=== PATIENT | female | born 2000 | race Caucasian/White ===

== ENCOUNTER 2018-03-17 02:29 | Emergency (ER) | payer BC, SELFPAY ==
[2018-03-17 02:30] VITALS: BP 121/64; PULSE 104; PULSE 98; RESP 18; RESP 24; TEMP 36.7; O2SAT 100; BMI 22.6
[2018-03-17] MEDS: 0.9% Normal Saline 1,000 ML 1000 ML IV (03:24)
[2018-03-17 03:30] LABS: Bacteria 0 SEEN /hpf (None Seen); Mucous, Urine 0 SEEN /hpf (<or=2+); Red Blood Cells-Urine 0 SEEN /hpf (0-5); White Blood Cells 0 SEEN /hpf (0-5)
[2018-03-17 03:37] LABS: Absolute Neutrophil Count 7.5 X10^3/uL (2.0-7.7); Basophil# 0.01 X10^3/uL; Basophil% 0.1 % (0-1); Eosinophil# 0.04 X10^3/uL; Eosinophils% 0.4 % (0-5); Hematocrit 30.9 % (37-47); Hemoglobin 9.5 g/dl (12.0-15.0); Lymphocyte % 11.3 % (19-41); Mean Corp Hgb Conc 30.7 g/gl (32-36); Mean Corpuscular Hgb 22.4 pg (27.0-32.0); Mean Corpuscular Volume 72.9 fL (81-99); Mean Platelet Vol. 10.1 fl (6.2-12.0); Monocyte# 1.02 X10^3/uL; Monocyte% 10.5 % (0-10); Neutrophil # 7.54 X10^3/uL (2.7-7.7); Neutrophil % 77.6 % (47-70); Platelet Count 246 K/mm3 (150-450); RBC Distribution Width CV 15.7 % (11.6-14.6); RBC Distribution Width SD 41.8 fl (35.1-43.9); Red Blood Count 4.24 M/mm3 (4.2-5.4); White Blood Count 9.7 K/mm3 (4.4-11.0)
[2018-03-17 03:39] LABS: Differential Indicated SCAN CRITERIA MET; POSITIVE COUNT NO; POSITIVE DIFFERENTIAL NO; POSITIVE MORPHOLOGY YES
[2018-03-17 03:42] LABS: Color, Urine Yellow (Yellow); Glucose, Dipstick Normal (Normal); Leukocyte Esterase-Dipstick 100 /ul (Negative); Nitrite-Dipstick Negative (Negative); Occult Blood-Urine Negative /ul (Negative); Protein-Dipstick Negative (Negative); Specific Gravity, Urine 1.015 (1.002-1.030); Urine Bilirubin Dipstick Negative (Negative); Urine Clarity Clear (Clear); Urine Urobilinogen Normal (Normal)
[2018-03-17 03:54] LABS: Anion Gap 10 (5-15); BUN 5 mg/dL (7-18); BUN/Creat Ratio 12.3 RATIO (10-20); Calcium,Total 8.6 mg/dL (8.5-10.1); Chloride 108 mmol/L (98-107); Creatinine, Serum 0.41 mg/dL (0.55-1.02); EST Glomerular Filtration Rate 212 mL/min (>60); Est Glom Filt Rate - Afr Amer 257 mL/min (>60); Estimated Creatinine Clearance 157.22 ml/min; Glucose 94 mg/dL (74-106); Potassium 3.1 mmol/L (3.5-5.1); Sodium Level 139 mmol/L (136-145)
[2018-03-17 03:58] LABS: Ketone-Dipstick 150 mg/dl (Negative)
--- NOTE | 2018-03-17 03:59 | NURSING ---
LAB CALLED ABNORMAL RESULT OF 150 URINE KETONES FOR THIS PT, DR. NI NOTIFIED AT 0400
[2018-03-17 04:11] LABS: Squamous Epithelial Cells - UA 5-10 SEEN /hpf (5-10)
[2018-03-17 04:14] LABS: Differential Comment SCANNED; Hypochromasia 2+; Microcytosis 2+
--- NOTE | 2018-03-17 04:18 | ED.VISSUMM ---
- ER Visit Summary Date of Service: 03/17/18 Chief Complaint: Lightheaded History of Present Illness: The patient is a 18 F who [facility]. She reports that she is a at 21 weeks and 6 days . She reports that yesterday morning at 7:30 AM she drank 1 monster. She drank a second throughout the day and finished this at 3:30 PM. She reports following that she began feeling lightheaded. At that point she had been standing for approximately 8 hours while working. States she became nauseated and vomited twice. No blood or emesis. She denies any vaginal bleeding. Normal movement. She has had a subjective fever and chills. Patient denies sore throat, cough, chest pain, trouble breathing, abdominal pain, diarrhea, dysuria, frequency, rash, headache, weakness, paresthesias, or other complaints. Physical Examination: Vitals: Stable. Afebrile. General: Well-nourished and well-developed. Head: Normocephalic atraumatic. Neck: Supple, no lymphadenopathy. No JVD. Nontender. Cardiovascular: Regular rate and rhythm. No murmurs. Respiratory: No respiratory distress. Clear to auscultation bilaterally. Abdominal: Soft, nontender, nondistended, normal bowel sounds. No guarding, rebound, or peritoneal signs. Gravid uterus. Back: Nontender. Extremities: Nontender, no edema. Skin: Normal color, no rash. Neurologic: Alert and oriented ?3. Cranial nerves II through XII are intact. Normal strength and sensation. Psych: Normal affect. Test Results: CBC is marked for an H&H of 9.5 and 30.9, segmented neutrophils of 78, leukocytes of 11, monocytes of 11. Her last hemoglobin was 8.1 in August 2016. Chem-7 is marked potassium 3.1, chloride 108, BUN of 5, creatinine 0.41. Urinalysis is negative. Emergency Department Course and Treatment: Patient was given a liter bolus of normal saline. heart tones were 153. She is resting comfortably. Treatment Plan: Patient will be discharged instructions to abstain from energy drinks. Instructed to eat potassium rich foods. Follow-up with her [employer] commerce consultant in 1-2 days not improving. Return to the emergency department for any worsening symptoms. Disposition: To home in improved and stable condition. Impression: 1. Second trimester . 2. Hypokalemia. This note was generated with [employer] dictation software. It may contain incorrect words, spelling, and punctuation that were not noted in review of the chart prior to signing ED Disposition - Plan for ED Patient: Disposition: Home or Assisted Living Chief Complaint: General Illness Instructions: ED Nausea Vomiting Referrals: Richard Mitchell [Primary Care Provider] - 1-2 Days if not improving
[2018-03-17 04:49] VITALS: BP 110/57; PULSE 87; RESP 15; O2SAT 97
== END 2018-03-17 04:50 | disposition home or self-care (01) ==
PROVIDERS: Emergency Provider Emergency Medicine; Family Provider Pediatrics; PCP Pediatrics
DX: O26.892 Other specified pregnancy related conditions, second trimester (principal); E87.6 Hypokalemia; Z3A.21 21 weeks gestation of pregnancy
CPT/HCPCS: 80048; 81001; 85025; 96360; 99284

== ENCOUNTER 2018-07-24 03:07 | Inpatient (IN) | payer BC, MEDICAID, SELFPAY ==
[2018-07-24 03:53] LABS: Hematocrit 35.7 % (37-47); Hemoglobin 11.8 g/dl (12.0-15.0); Mean Corp Hgb Conc 33.1 g/gl (32-36); Mean Corpuscular Hgb 27.8 pg (27.0-32.0); Mean Corpuscular Volume 84.2 fL (81-99); Mean Platelet Vol. 10.1 fl (6.2-12.0); Platelet Count 188 K/mm3 (150-450); RBC Distribution Width CV 16.5 % (11.6-14.6); RBC Distribution Width SD 50.6 fl (35.1-43.9); Red Blood Count 4.24 M/mm3 (4.2-5.4); White Blood Count 9.6 K/mm3 (4.4-11.0)
[2018-07-24 03:55] LABS: Scan Indicated on CBC? Y/N NO
[2018-07-24 04:05] VITALS: BMI 25.7
[2018-07-24] MEDS: Lactated Ringers 1,000 ML 50 ML IV ×2 (05:31→06:45)
[2018-07-24] MEDS: fentaNYL-bupivacaine (epidural) 100 ML BAG EPIDURAL (06:45)
--- NOTE | 2018-07-24 07:12 | PCM.HP.OB ---
- Problem List (1) SROM (spontaneous rupture of membranes) Status: Acute History Date of Admission: 07/24/18 Final ROBERT: 07/22/18 Final ROBERT Source: US <20 weeks Gestational age: 40 Weeks and 2 Days History of this : This is a 18 year-old, , at 40 weeks gestational age. history significant for influenza in November, anemia, and genital warts. Patient has been taking iron supplement for anemia. TCA was applied to genital warts in third trimester once. She presented with SROM and labor. Allergies No Known Allergies Allergy (Verified 07/24/18 04:07) Home Medications: Home Medications Ferrous Sulfate [Iron] 1 tab PO BID 07/24/18 Prenatabs FA 1 tab PO DAILY 07/24/18 Smoking Status: Never smoker Heart Tracin/mod josephine/+accels/+early decel, Category 1 tracing TOCO Analysis: ctx's q 2 min History Past Pregnancies: Past Pregnancies Delivery Date Name GA/Weeks Outcome Route Weight Gender Labor Length Anesthesia Delivery Location Provider FOB Labs: GBS negative, Rh pos, RI, RPR NR, HIV neg, HepB neg Review of Systems Constitutional: Denies: Fever Gynecological: Reports: - - +SROM around 3am, meconium stained fluid. +Ctx's Physical Exam General: Alert, Oriented x3 HEENT: Atraumatic Cardiovascular: Regular rate Lungs: Normal air movement Abdomen: Gravid Neurological: Neuro grossly intact Presentation: Cephalic Cervix Dilation (cm): 4 Assessment/Plan All Active Problems SROM (spontaneous rupture of membranes) (Acute) This is a 18 year-old, , at 40 weeks gestational age. She presented with SROM and in labor. Has made cervical change to 4cm with ctx's q 2 min without augmentation. Meconium stained fluid present. S/p epidural. GBS negative. Continue to monitor at this time. Will augment labor as needed.
--- NOTE | 2018-07-24 13:25 | PCM.PN.BLA ---
Progress Note pt seen at bedside- /+2, pushing effectively. anticipate
[2018-07-24] MEDS: Oxytocin 30 units/NS 500 ml 30 UNITS/500 ML IV.SOLN 334 UNITS IV (13:50)
--- NOTE | 2018-07-24 14:18 | PCM.OB.VAG ---
Vaginal Delivery Maternal Presentation: Active Labor, Spontaneous Rupture of Membranes Amniotic Membrane Rupture Type: Spontaneous Amniotic Fluid Description: Moderate meconium Final ROBERT: 07/22/18 Gestational age: 40 Weeks and 2 Days Date of Procedure: 07/24/18 Pre-Operative Diagnosis: spontaneous labor Post-Operative Diagnosis: live male infant Surgery/ Procedure Performed: Vacuum Assisted Vaginal Delivery Type of Anesthesia: Epidural Description of Procedure: Vacuum assisted delivery- pt was counseled on use of vacuum- including risks- vacuum applied due to maternal exhaustion and HR decelerations down to 60s - vacuum applied at 500mgHg pressure- total of three pulls with no pop offs- delivered without complication. Loose nuchal x 2 reduced prior to delivery. vacuum removed and infant delivered with gentle downward traction. Delayed cord clamping not performed as was not vigorous at delivery. Presentation: Vertex Placental Delivery Description: Spontaneous Placenta Disposition: [facility] Cord Vessel Description: 3 Vessels Nuchal Cord Compression: With compression Cord Entanglement: Around neck x 2, loose Drain: Jacques to straight drain Estimated Blood Loss: 250 A gender: Male (1 minute): 7 (5 minute): 8 Episiotomy Description: None Laceration: Vaginal Extension/lac - repaired with 3-0 Rapide, 1st degree Medications given after delivery: IV Pitocin Complications: None
[2018-07-24] MEDS: Oxytocin 30 units/NS 500 ml 30 UNITS/500 ML IV.SOLN 167 UNITS IV (14:20)
[2018-07-24] MEDS: Ibuprofen 600 MG Tablet PO (15:24)
[2018-07-24 17:58] VITALS: BP 98/57; PULSE 64; RESP 16; TEMP 37.3; O2SAT 96
[2018-07-24] MEDS: Acetaminophen 500 MG Tablet 1000 MG PO (18:02)
[2018-07-24 20:45] VITALS: BP 119/71; PULSE 81; RESP 18; TEMP 37.1
[2018-07-25 00:17] VITALS: BP 104/52; PULSE 64; RESP 16; TEMP 36.7
[2018-07-25 04:52] VITALS: BP 89/54; PULSE 59; RESP 18; TEMP 36.6
[2018-07-25] MEDS: Ibuprofen 600 MG Tablet PO ×2 (05:00→22:03)
[2018-07-25 08:00] VITALS: BP 90/52; PULSE 61; RESP 16; TEMP 36.6
--- NOTE | 2018-07-25 08:10 | PCM.PN.OB ---
Patient Problems: Active and Suspected Problems (Last Updated 07/24/18 @ 07:27 by Swathi Julian DO) SROM (spontaneous rupture of membranes) (Acute) Subjective: pt seen at bedside doing well. breast feeding. pt reports good pain control. lochia mild. - Physical Exam General: Alert, Oriented x3 Abdomen: Soft, Non-Distended, - - fundus firm Extremities: No Calf Tenderness Vital Signs Temp Pulse Resp BP Pulse Ox 97.8 F 59 L 18 89/54 L 96 07/25/18 04:52 07/25/18 04:52 07/25/18 04:52 07/25/18 04:52 07/24/18 17:58 Oxygen Delivery Method Room Air Weight: 59.783 kg Body Mass Index (BMI) 25.7 Medical Necessity - Tobacco Use Smoking Status: Never smoker Assessment/Plan All Active Problems (Last Updated 07/24/18 @ 07:27 by Swathi Julian DO) SROM (spontaneous rupture of membranes) (Acute) PPD#1, doing well routine care pain mgmt
--- NOTE | 2018-07-25 08:13 | PCM.DCVAG ---
Discharge Diet: No Restrictions Discharge Activity: Return to Normal Activity, May not drive while taking narcotic pain medications., May Shower May resume sexual activity in: 4-6 weeks Additional Activity Instructions:: Nothing in the vagina for 4-6 weeks. You may return to work/school in 6 weeks. Call your doctor if your incision/area has: Continuous Slow Oozing, Sudden Increased Bleeding, Increased Pain/ Swelling, Increased Redness, Foul Smelling Discharge Additional Instructions: If you experience any of the following, contact your healthcare provider. Bleeding that soaks a pad every hour for 2 hours Fever 100.4 or higher Unrelieved incision or abdominal pain Swelling, redness, discharge or bleeding from your incision or episiotomy site Your incision begins to separate Problems urinating (including inability to urinate or burning while urinating). Visual changes Severe headache Flu-like symptoms Pain or redness in one of both of your breasts Pain, warmth, tenderness or swelling in your legs, especially the calf area Frequent nausea and vomiting Symptoms of depression or anxiety If you experience any of the following, call 911 or go to the nearest Emergency Room. Chest pain Problems breathing Seizure activity Partial or complete paralysis of a body part, slurred speech, weakness or drooping of the face, or a sudden inability to walk or hold your balance Allergies/Adverse Reactions: Allergies No Known Allergies Allergy (Verified 07/24/18 04:07) Medications to take at Discharge Prenatabs FA 1 tab PO DAILY 07/24/18 Ibuprofen [Motrin] 800 mg PO Q8H PRN PRN #30 tab 07/25/18 The following prescriptions were given: Ibuprofen [Motrin] 800 mg PO Q8H PRN PRN #30 tab PRN Reason: Pain When: Call to make an appointment with your doctor in 2 weeks and again in 6 weeks. Primary Care Physician: Richard Mitchell [Primary Care Provider] - Test Results: Test results from this visit will be discussed in further detail at your follow-up appointment, if applicable.
[2018-07-25 12:00] VITALS: BP 100/59; PULSE 83; RESP 16; TEMP 36.6
--- NOTE | 2018-07-25 12:44 | CASEMGMT ---
Social Work Note Please read attached assessment. Referral for new mother. Introduced self and role at [facility]. MOB accompanied by her mother, Pauly, and presents with pleasant affect as evidenced by smiling and willingness to participate in assessment. Reports to have all necessary supplies including crib, car seat, clothes, diapers, bottles, and states she does not have a pump. Inform MOB to discuss with the tour consultant for assistance with obtaining prior to discharge. No hx or concern of abuse/neglect. Yusuf HURTADO, is involved. MOB lives with her mother, and identifies her as a primary support. Denies mental health hx. Educated to PPD. Denies substance abuse hx. Pt is established with WIC and J[facility]. Plan: Home at discharge Ruba Coon, CHIEF CRUISER, CASEWORK SPECIALIST
[2018-07-25 20:20] VITALS: BP 106/50; PULSE 67; RESP 16; TEMP 36.7
[2018-07-26 01:05] VITALS: BP 97/61; PULSE 54; RESP 16; TEMP 36.1
[2018-07-26 08:00] VITALS: BP 98/60; PULSE 78; RESP 16; TEMP 36.6
--- NOTE | 2018-07-26 08:43 | PCM.PN.OB ---
Patient Problems: Active and Suspected Problems (Last Updated 07/24/18 @ 07:27 by Swathi Julian DO) SROM (spontaneous rupture of membranes) (Acute) Subjective: Patient doing well. Feels ready to go home. Ambulating and voiding without difficulty. Tristan reg diet. Normal lochia. Denies fevers, chills, CP, SOB, n/v, leg pain. Pain controlled. - Physical Exam General: Alert, Oriented x3 HEENT: Atraumatic Lungs: Normal air movement Abdomen: Soft, Non Tender, - - fundus firm at U Extremities: No Calf Tenderness Skin: No rashes Neurological: Neuro grossly intact Psych/Mental Status: Normal Affect Vital Signs Temp Pulse Resp BP Pulse Ox 97.0 F L 54 L 16 97/61 96 07/26/18 01:05 07/26/18 01:05 07/26/18 01:05 07/26/18 01:05 07/24/18 17:58 Oxygen Delivery Method Room Air Weight: 131 lb 12.8 oz Body Mass Index (BMI) 25.7 Medical Necessity - Tobacco Use Smoking Status: Never smoker Assessment/Plan All Active Problems (Last Updated 07/24/18 @ 07:27 by Swathi Julian DO) SROM (spontaneous rupture of membranes) (Acute) day #2 - Doing well - Ready to go home - Reviewed discharge instructions including return precautions and follow up with pt
[2018-07-26 14:30] VITALS: BP 99/66; PULSE 76; RESP 16; TEMP 36.6
== END 2018-07-26 14:35 | disposition home or self-care (01) | DRG 774 ==
PROVIDERS: Admitting Provider Obstetrics & Gynecology; Family Provider Pediatrics; PCP Pediatrics; Visit Provider Obstetrics & Gynecology
DX: O48.0 Post-term pregnancy (principal); O98.32 Other infections with a predominantly sexual mode of transmission complicating childbirth; O71.4 Obstetric high vaginal laceration alone; Z3A.40 40 weeks gestation of pregnancy; O99.02 Anemia complicating childbirth; A60.00 Herpesviral infection of urogenital system, unspecified; O77.0 Labor and delivery complicated by meconium in amniotic fluid; O76 Abnormality in fetal heart rate and rhythm complicating labor and delivery; O69.81X0 Labor and delivery complicated by cord around neck, without compression, not applicable or unspecified; Z37.0 Single live birth
CPT/HCPCS: 59025; 59050; 85027; 86850; 86900; 99218; J7120; G0378

== ENCOUNTER 2018-08-29 00:06 | Emergency (ER) | payer BC, MEDICAID, SELFPAY ==
[2018-08-29 00:07] VITALS: BP 114/72; PULSE 63; RESP 20; TEMP 37; O2SAT 99; BMI 22.7
--- NOTE | 2018-08-29 00:52 | ED.VISSUMM ---
- ER Visit Summary Date of Service: 08/29/18 Chief Complaint: Left leg pain History of Present Illness: The patient is a 18 F presenting for evaluation secondary to left leg pain. Patient is 5 weeks . Patient states that over the course last 3-4 days she has been developing left leg pain. She reports that this is atraumatic, and is associated with pain in her left anterior thigh and left posterior calf. She denies any chest pain or shortness of breath associated with this. She denies any hemoptysis. She states that she called her primary and they recommended she come to the emergency department for evaluation for possible DVT. She denies any prior history of this. Physical Examination: Physical exam unremarkable except for examination of the lower extremity. Patient has normal range of motion if the hip knee ankle and foot. There are soft compartments throughout. Normal sensation over all dermatomes. 2+ DP and PT pulses. No evidence of reproducible tenderness or palpable cord. Test Results: Bedside two-point ultrasound shows good compressibility, and no evidence of DVT in the femoral or popliteal regions Emergency Department Course and Treatment: Patient presented for evaluation secondary to leg pain . Ultrasound is not available as it is almost 1 AM. I did performed a bedside two-point exam which did not demonstrate any evidence of DVT. I do not believe that empiric anticoagulation is indicated. Patient will be given a prescription for a formal two-point duplex to perform tomorrow. She understands signs and symptoms which to return. I believe that her leg pain likely is secondary to differences in gait secondary to carrying around her . Disposition: Discharge Impression: 1. Left leg pain 2. 5 weeks This note was generated with [employer] dictation software. It may contain incorrect words, spelling, and punctuation that were not noted in review of the chart prior to signing ED Disposition - Plan for ED Patient: Disposition: [facility] Chief Complaint: Lower Extremity Injury Diagnosis: Left leg pain Instructions: ED Muscle Pain Leg Cramps Referrals: Richard Mitchell [Primary Care Provider] - 3-5 Days Additional Instructions: Call tomorrow to schedule your left leg ultrasound
--- NOTE | 2018-08-29 00:56 | ED.DCSUM_ITS ---
- ER Visit Summary Date of Service: 08/29/18 Chief Complaint: Left leg pain History of Present Illness: The patient is a 18 F presenting for evaluation secondary to left leg pain. Patient is 5 weeks . Patient states that over the course last 3-4 days she has been developing left leg pain. She r eports that this is atraumatic, and is associated with pain in her left anterior thigh and left posterior calf. She denies any chest pain or shortness of breath associated with this. She denies any hemoptysis. She states that she called her primary and they recommended she come to the emergency department for evaluation for possible DVT. She denies any prior history of this. Physical Examination: Physical exam unremarkable except for examination of the lower extremity. Patient has normal range of motion if the hip knee ankle and foot. There are soft compartments throughout. Normal sensation over all dermatomes. 2+ DP and PT pulses. No evidence of reproducible tenderness or palpable cord. Test Results: Bedside two-point ultrasound shows good compressibility, and no evidence of DVT in the femoral or popliteal regions Emergency Department Course and Treatment: Patient presented for evaluation s econdary to leg pain . Ultrasound is not available as it is almost 1 AM. I did performed a bedside two-point exam which did not demonstrate any evidence of DVT. I do not believe that empiric anticoagulation is indicated. Patient will be given a prescription for a formal two-point duplex to perform tomorrow. She understands signs and symptoms which to return. I believe that her leg pain likely is secondary to differences in gait secondary to carrying around her . Disposition: Discharge Impression: 1. Left leg pain 2. 5 weeks This note was generated with [employer] dictation software. It may contain incorrect words, spelling, and punctuation that were not noted in review of the chart prior to signing ED Disposition - Plan for ED Patient: Disposition: [facility] Chief Complaint: Lower Extremity Injury Diagnosis: Left leg pain Instructions: ED Muscle Pain Leg Cramps Referrals: Richard Mitchell [Primary Care Provider] - 3-5 Days Additional Instructions: Call tomorrow to schedule your left leg ultrasound
== END 2018-08-29 01:23 | disposition home or self-care (01) ==
LOC: ED 01:20
PROVIDERS: Emergency Provider Emergency Medicine
DX: O90.89 Other complications of the puerperium, not elsewhere classified (principal); M79.652 Pain in left thigh; M79.662 Pain in left lower leg
CPT/HCPCS: 99282

== ENCOUNTER 2018-09-04 22:54 | Emergency (ER) | payer BC, MEDICAID, SELFPAY ==
[2018-09-04 22:56] VITALS: BP 109/80; PULSE 83; RESP 16; TEMP 36.6; O2SAT 99; BMI 20.8
--- NOTE | 2018-09-04 23:05 | EKG12_ITS ---
Test Reason : CP Blood Pressure : / mmHG Vent. Rate : 076 BPM Atrial Rate : 076 BPM P-R Int : 156 ms QRS Dur : 086 ms QT Int : 372 ms P-R-T Axes : 040 075 046 degrees QTc Int : 418 ms Normal sinus rhythm with sinus arrhythmia Normal ECG No previous ECGs available Confirmed by BRYANNA RODAS, RHODA ([id number]), video editor HAWA GOYAL ([id number]) on 09/08/2018 12:47:24 PM Referred By: ESTELITA Confirmed By:RHODA GOULD MD
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
--- NOTE | 2018-09-04 23:07 | NURSING ---
NO OLD EKG
[2018-09-04] MEDS: Naproxen 500 MG Tablet PO (23:13)
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
--- NOTE | 2018-09-04 23:36 | ED.DEP ---
ED Disposition - Plan for ED Patient: Disposition: Home or Assisted Living Chief Complaint: Chest Other Instructions: ED Chest Pain NonCardiac Prescriptions: Naproxen [Naprosyn] 500 mg PO BID #20 tab Referrals: Care Physician,No Primary [Primary Care Provider] -
== END 2018-09-05 00:04 | disposition home or self-care (01) ==
PROVIDERS: Emergency Provider Emergency Medicine
DX: R07.89 Other chest pain (principal); D64.9 Anemia, unspecified; Z79.899 Other long term (current) drug therapy
CPT/HCPCS: 71046; 93005; 99283

== ENCOUNTER 2018-09-06 13:13 | Emergency (ER) | payer BC, MEDICAID, SELFPAY ==
[2018-09-06 13:13] VITALS: BP 137/79; PULSE 96; RESP 22; TEMP 36.2; O2SAT 98; BMI 22.4
--- NOTE | 2018-09-06 13:32 | EKG12_ITS ---
Test Reason : ANXIETY Blood Pressure : / mmHG Vent. Rate : 080 BPM Atrial Rate : 080 BPM P-R Int : 156 ms QRS Dur : 094 ms QT Int : 376 ms P-R-T Axes : 032 078 040 degrees QTc Int : 433 ms Normal sinus rhythm Normal ECG Confirmed by BRYANNA RODAS, RHODA ([id number]), editor book HAWA GOYAL ([id number]) on 09/09/2018 11:07:24 AM Referred By: LARRY Confirmed By:RHODA GOULD MD
[2018-09-06 13:39] VITALS: BP 123/66; PULSE 83; RESP 11; O2SAT 99
--- NOTE | 2018-09-06 13:52 | RAD_ITS ---
STUDY: X-RAY CHEST REASON FOR EXAM: Female, 18 years old. Shortness of breath dyspnea TECHNIQUE: Single AP portable view of the chest. # of Images: 1 COMPARISON: September 04, 2018 chest x-ray FINDINGS: The lungs are clear and expanded. There is no demonstrated pleural abnormality. Normal size heart. Normal mediastinum and henrry. Normal visualized pulmonary arteries. Normal visualized aortic arch and descending thoracic aorta. Normal visualized thoracic spine. Normal visualized ribs, clavicles, and shoulders. There is no demonstrated abnormality of the visualized soft tissue structures of the upper abdomen. RAD/Chest 1 View (Portable) IMPRESSION: Normal x-ray examination of the chest. Electronically Signed: Rachel Ha MD at 14:39 EDT Tel , Service support ,
[2018-09-06] MEDS: Ketorolac 15 MG/ML Vial IV (13:53)
[2018-09-06] MEDS: 0.9% Normal Saline 1,000 ML 75 ML IV (13:53)
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
[2018-09-06 14:10] LABS: Absolute Lymphocyte Count 1.57 X10^3/ul (0.83-4.51); Absolute Neutrophil Count 3.5 X10^3/uL (2.0-7.7); Basophil# 0.03 X10^3/uL; Basophil% 0.5 % (0-1); Eosinophil# 0.39 X10^3/uL; Eosinophils% 6.2 % (0-5); Hematocrit 40.2 % (37-47); Hemoglobin 13.1 g/dl (12.0-15.0); Lymphocyte # 1.57 X10^3/ul (4.0); Mean Corp Hgb Conc 32.6 g/gl (32-36); Mean Corpuscular Hgb 28.3 pg (27.0-32.0); Mean Corpuscular Volume 86.8 fL (81-99); Mean Platelet Vol. 10.1 fl (6.2-12.0); Monocyte# 0.84 X10^3/uL; Monocyte% 13.4 % (0-10); Neutrophil # 3.45 X10^3/uL (2.7-7.7); Neutrophil % 54.7 % (47-70); POSITIVE COUNT NO; POSITIVE DIFFERENTIAL NO; POSITIVE MORPHOLOGY NO; Platelet Count 253 K/mm3 (150-450); RBC Distribution Width CV 13.4 % (11.6-14.6); RBC Distribution Width SD 42.4 fl (35.1-43.9); Red Blood Count 4.63 M/mm3 (4.2-5.4); White Blood Count 6.3 K/mm3 (4.4-11.0)
[2018-09-06 14:20] LABS: D-Dimer Quantitative (DVT/PE) < 0.27 FEU/ug/m (0.27-0.49)
[2018-09-06 14:21] LABS: Anion Gap 7 (5-15); BUN 11 mg/dL (7-18); BUN/Creat Ratio 19.1 RATIO (10-20); Calcium,Total 9.3 mg/dL (8.5-10.1); Chloride 107 mmol/L (98-107); Creatinine, Serum 0.58 mg/dL (0.55-1.02); EST Glomerular Filtration Rate 141 mL/min (>60); Est Glom Filt Rate - Afr Amer 171 mL/min (>60); Estimated Creatinine Clearance 111.14 ml/min; Glucose 97 mg/dL (74-106); Potassium 3.4 mmol/L (3.5-5.1); Sodium Level 140 mmol/L (136-145)
--- NOTE | 2018-09-06 14:53 | ED.DEP ---
ED Disposition - Plan for ED Patient: Disposition: Home or Assisted Living Chief Complaint: Other, Pain/Inj Instructions: ED Chest Pain Atypical Unkn Cause, ED Panic Attack Referrals: Gurjit Salmeron MD [STAFF PHYSICIAN] - As Needed
[2018-09-06 15:13] VITALS: BP 115/70; PULSE 69; RESP 16; O2SAT 99
== END 2018-09-06 15:14 | disposition home or self-care (01) ==
PROVIDERS: Emergency Provider Emergency Medicine
DX: O90.89 Other complications of the puerperium, not elsewhere classified (principal); R07.89 Other chest pain; Z79.899 Other long term (current) drug therapy
CPT/HCPCS: 71045; 80048; 85025; 85379; 93005; 96361; 96374; 99285

== ENCOUNTER → 2018-09-16 15:45 | Outpatient (CLI) | payer BC, MEDICAID, SELFPAY ==
[2018-09-16 18:07] LABS: Potassium 3.6 mmol/L (3.5-5.1); Thyroid Stim Hormone (TSH) 1.21 uIU/mL (0.358-3.74)
== END ==
PROVIDERS: Family Provider Family Medicine; PCP Family Medicine; Visit Provider Family Medicine
DX: E87.6 Hypokalemia (principal); F41.9 Anxiety disorder, unspecified
CPT/HCPCS: 36415; 84132; 84443

== ENCOUNTER 2018-09-29 23:00 | Emergency (ER) | payer BC, MEDICAID, SELFPAY ==
[2018-09-29 23:01] VITALS: BP 112/69; PULSE 75; RESP 18; TEMP 36.6; O2SAT 99; BMI 21.1
--- NOTE | 2018-09-29 23:17 | ED.VISSUMM ---
- ER Visit Summary Date of Service: 09/29/18 Chief Complaint: Rash History of Present Illness: The patient is a 18 F facial rash for 5-7 days. No change in soaps or detergents. No change in facial wash. No new medications. States mildly pruritic. States there is dryness and crusting at the sides of the lips. No fevers. No past med history. Did use some cortisone cream which helps with itching. No other complaints. Physical Examination: General: Alert and oriented ?3, no acute distress HEENT: Normocephalic, atraumatic. Moist mucosa membranes. No oral lesions. Neck: supple, nontender. Cardiovascular: Regular rate and rhythm, no murmurs Respiratory: Normal breath sounds, symmetric, no distress Abdomen: Soft, nontender, nondistended Extremities: Nontender, no edema, pulses intact ?4 Neuro: no focal neurological deficits. Skin: There is papules and patches bilateral maxillary and chin region. There is some crusting at the bilateral edges of the lips. Nontender. No induration. Test Results: [] Emergency Department Course and Treatment: Patient has no clear exposures or concerns for contact dermatitis. Crusting and edge lips concerns for early impetigo. Patient will be started on Keflex for coverage. She will continue cortisone cream to help with symptoms. She will follow-up as an outpatient. All questions answered. Treatment Plan: [] Disposition: Discharge Impression: 1. Impetigo This note was generated with [email or web address] dictation software. It may contain incorrect words, spelling, and punctuation that were not noted in review of the chart prior to signing ED Disposition - Plan for ED Patient: Disposition: Home or Assisted Living Chief Complaint: Rash Diagnosis: Impetigo Instructions: Understanding Impetigo (Adult) Prescriptions: Cephalexin [Keflex] 500 mg PO 4X/DAY #40 capsule Referrals: Arron Brandt MD [Primary Care Provider] - 3-5 Days
[2018-09-29] MEDS: Cephalexin 250 MG Capsule 500 MG PO (23:32)
[2018-09-29 23:33] VITALS: BP 109/62; PULSE 72; RESP 14; O2SAT 98
== END 2018-09-29 23:38 | disposition home or self-care (01) ==
LOC: ED 23:32
PROVIDERS: Emergency Provider Emergency Medicine; Family Provider Family Medicine; PCP Family Medicine
DX: L01.00 Impetigo, unspecified (principal)
CPT/HCPCS: 99283

== ENCOUNTER 2018-10-23 00:17 | Emergency (ER) | payer BC, MEDICAID, SELFPAY ==
[2018-10-23 00:17] VITALS: BP 111/56; PULSE 63; RESP 16; TEMP 36.4; O2SAT 98; BMI 22.2
--- NOTE | 2018-10-23 00:57 | RAD_ITS ---
STUDY: X-RAY CHEST REASON FOR EXAM: Female, 18 years old. Chest pain TECHNIQUE: PA and lateral COMPARISON: September 06, 2018 FINDINGS: The lungs are clear and expanded. There is no demonstrated pleural abnormality. Normal size heart. Normal mediastinum and henrry. Normal visualized pulmonary arteries. Normal visualized aortic arch and descending thoracic aorta. Normal visualized thoracic spine. Normal visualized ribs, clavicles, and shoulders. There is no demonstrated abnormality of the visualized soft tissue structures of the upper abdomen. RAD/Chest PA and Lateral IMPRESSION: Normal x-ray examination of the chest. Electronically Signed: Srinivas Mata MD at 2:12 EST , Service support ,
--- NOTE | 2018-10-23 00:57 | EKG12_ITS ---
Test Reason : Blood Pressure : / mmHG Vent. Rate : 057 BPM Atrial Rate : 057 BPM P-R Int : 170 ms QRS Dur : 090 ms QT Int : 426 ms P-R-T Axes : 038 079 055 degrees QTc Int : 414 ms Sinus bradycardia with sinus arrhythmia RSR' or QR pattern in V1 suggests right ventricular conduction delay Borderline ECG Confirmed by ALEX RODAS, SILVIO ([id number]), editorial project manager ANAHI COWAN ([id number]) on 10/24/2018 2:42:47 PM Referred By: JENNIFFER Confirmed By:SILVIO JOHNSON MD
[2018-10-23] MEDS: Ibuprofen 600 MG Tablet PO (01:14)
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
--- NOTE | 2018-10-23 02:25 | ED.DEP ---
ED Disposition - Plan for ED Patient: Chief Complaint: General Illness Instructions: ED Strain Chest Wall Prescriptions: Ibuprofen [Motrin] 800 mg PO TID PRN PRN #20 tab PRN Reason: Pain Cyclobenzaprine [Flexeril] 10 mg PO TID PRN #20 tab PRN Reason: Muscle Spasm Referrals: Arron Brandt MD [Primary Care Provider] -
[2018-10-23 02:43] VITALS: BP 109/72; PULSE 59; RESP 15; O2SAT 99
== END 2018-10-23 02:44 | disposition home or self-care (01) ==
PROVIDERS: Emergency Provider Emergency Medicine; Family Provider Family Medicine; PCP Family Medicine
DX: R07.89 Other chest pain (principal)
CPT/HCPCS: 71046; 93005; 99283

== ENCOUNTER 2018-10-26 16:34 | Emergency (ER) | payer BC, MEDICAID, SELFPAY ==
[2018-10-26 16:35] VITALS: BP 112/72; PULSE 66; RESP 16; TEMP 36.2; O2SAT 99; BMI 21.4
--- NOTE | 2018-10-26 16:50 | ED.VISSUMM ---
- ER Visit Summary Date of Service: 10/26/18 Chief Complaint: [] Nonspecific abdominal pain for over a month intermittent, nonspecific skin lesions History of Present Illness: The patient is a 18 F [] patient reports she is about 3 months her is uncomplicated she had a 6 weeks check she has had no vaginal bleeding or discharge denies , she indicates she is having intermittent crampy pain that begins in the right middle left middle quadrant radiates to her back intimately for over a month, she is not having the pain now, she is able to eat and drink her bowel bladder habits been normal again no vaginal bleeding or discharge denies no fever no cough, she went to be evaluated for that intermittent discomfort in addition she indicates she was diagnosed impetigo a few weeks ago on her face consisting of small blisters that were crusted, she took the antibiotics for almost a full course but discontinued them when the lesions resolved and she is concerned she is developing impetigo to her arms, she wanted to be checked for that as well she has no skin lesions anywhere on her body just a concern, she said no exposures Physical Examination: [] She is afebrile her blood pressure is 112/72 General, no distress resting comfortably HEENT is generally unremarkable The neck is supple no adenopathy Cardiovascular, regular rate and rhythm Lungs, clear bilateral Abdomen, soft nontender, there is no areas of discomfort to palpation she is currently not having her symptoms Extremities, no clubbing cyanosis or edema Neurologic, awake alert answering questions appropriately moving all 4 extremities Skin is unremarkable there are no lesions anywhere on her skin her face is normal I explained to the etiology of her abdominal pain remains unclear she has had it for about a month, she is intermittent she is able to eat and drink her bowel bladder habits normal I explained we could do an ED evaluation with lab test x-rays urinalysis etc. she declined that with regards to her skin lesions have explained to her I see no signs of impetigo in the office life-threatening or acute this time she wants to be discharged home for outpatient providers who she will see tomorrow return for change in symptoms and agrees to this plan Test Results: [] Emergency Department Course and Treatment: [] Treatment Plan: [] Disposition: [] Home stable Impression: [] Intermittent abdominal pain for a month, concern for skin lesions This note was generated with [employer] software. It may contain incorrect words, spelling, and punctuation that were not noted in review of the chart prior to signing ED Disposition - Plan for ED Patient: Chief Complaint: Abd Pain Referrals: Arron Brandt MD [Primary Care Provider] -
--- NOTE | 2018-10-26 16:53 | ED.DEP ---
ED Disposition - Plan for ED Patient: Chief Complaint: Abd Pain Instructions: ED Abdominal Pain Unkn Cause Referrals: Arron Brandt MD [Primary Care Provider] -
== END 2018-10-26 17:01 | disposition home or self-care (01) ==
LOC: ED 16:57
PROVIDERS: Emergency Provider Emergency Medicine; Family Provider Family Medicine; PCP Family Medicine
DX: R10.84 Generalized abdominal pain (principal); L98.8 Other specified disorders of the skin and subcutaneous tissue
CPT/HCPCS: 99282

== ENCOUNTER 2018-10-31 07:51 | Emergency (ER) | payer BC, MEDICAID, SELFPAY ==
[2018-10-31 07:54] VITALS: BP 105/67; PULSE 107; RESP 18; TEMP 36.5; O2SAT 95; BMI 22.0
--- NOTE | 2018-10-31 08:12 | ED.DCSUM_ITS ---
- ER Visit Summary Date of Service: 10/31/18 Chief Complaint: Headache/left side pain History of Present Illness: The patient is a 18 F who presents with the above symptoms. She states that she started having a headache yesterday. It is on the right side down into the neck. She has no history of migraines in the past. She has had some nausea without vomiting. She took nothing for this at home. She has also been having 1 week of left side/flank pain into the chest. She denies any dysuria or cough. She has not had a fever. She has no PE or DVT risk factors Physical Examination: Vital signs reviewed. HEENT exam unremarkable. Heart is regular rate and rhythm without murmurs. Lungs are clear to auscultation. She does have mild left-sided chest tenderness in the left axilla area. Abdomen is soft and nontender. Back exam also reveals left thoracic paraspinal tenderness to palpation. Extremities reveal no edema. Skin exam normal. Neurologic exam normal. Test Results: HCG negative. Urinalysis reveals 0-5 white blood cells Emergency Department Course and Treatment: Patient was given normal saline, Compazine and Benadryl. She feels improved after this. Urinalysis is negative for infection or blood. HCG negative. Her pain in the left flank area is likely muscular. I will give her naproxen which will help with her pains at home. She will follow-up with her PCP Treatment Plan: [] Disposition: Discharge Impression: Headache, left flank pain This note was generated with [employer] dictation software. It may contain incorrect words, spelling, and punctuation that were not noted in review of the chart prior to signing ED Disposition - Plan for ED Patient: Chief Complaint: Headache Referrals: Arron Brandt MD [Primary Care Provider] -
[2018-10-31] MEDS: proCHLORPERazine 10 MG/2 ML Vial IV (08:35)
[2018-10-31] MEDS: DiphenhydrAMINE 50 MG/ML Syringe 25 MG IV (08:35)
[2018-10-31] MEDS: 0.9% Normal Saline 1,000 ML 999 ML IV (08:35)
[2018-10-31 08:48] LABS: Red Blood Cells-Urine 0 SEEN /hpf (0-5)
[2018-10-31 08:52] LABS: Color, Urine Yellow (Yellow); Glucose, Dipstick Normal (Normal); Ketone-Dipstick Negative (Negative); Leukocyte Esterase-Dipstick 100 /ul (Negative); Nitrite-Dipstick Negative (Negative); Occult Blood-Urine Negative /ul (Negative); Protein-Dipstick 15 mg/dl (Negative); Urine Bilirubin Dipstick Negative (Negative); Urine Clarity Clear (Clear); Urine Urobilinogen 1 mg/dl (Normal)
[2018-10-31 08:56] LABS: Internal QC Validated? YES +Cl - CLEAR BKGD; Pregnancy, Urine Negative Negative
[2018-10-31 09:05] LABS: White Blood Cells 0-5 SEEN /hpf (0-5)
[2018-10-31 09:06] LABS: Mucous, Urine RARE /hpf (<or=2+); Squamous Epithelial Cells - UA 0-5 SEEN /hpf (5-10)
[2018-10-31 09:07] LABS: Bacteria 1+ /hpf (None Seen)
--- NOTE | 2018-10-31 09:10 | ED.DEP ---
ED Disposition - Plan for ED Patient: Disposition: Home or Assisted Living Chief Complaint: Headache Instructions: ED Cephalgia Unspecified Prescriptions: Naproxen [Naprosyn] 500 mg PO BID PRN #20 tablet Referrals: Arron Brandt MD [Primary Care Provider] - Additional Instructions: Your prescription was electronically transferred to [facility] pharmacy
[2018-10-31 09:29] VITALS: BP 105/56; PULSE 78; RESP 14; O2SAT 98
--- OUTSIDE RECORDS SUMMARY | 2018-12-16 19:59 | XMS RPT_ITS ---
:2000 Demographics Address [address] [place] [address] [facility]- Marital Status Unknown Evangelical Affiliation Unknown Race Ethnic Group Unknown Author Organization OHIP Support Name Relationship Address Phone FIVE GUYS Unavailable [address] + [place] [address] SHRUTI, MARCUS Unavailable [address] + [place] [address] SLYKHUIS, PARK Unavailable [address] + [place] [address] F[employer] GU[employer] Unavailable [address] + [place] [address] SHRUTI, MARCUS Unavailable [address] + [place] [address] SLYKHUIS, PARK Unavailable [address] + [place] [address] [employer] GU[employer] Unavailable [address] + [place] [address] SHRUTI, MARCUS Unavailable [address] + [place] [address] SLYKHUIS, PARK Unavailable [address] + [place] [address] [employer] GU[employer] Unavailable [address] + [place] [address] SHRUTI, MARCUS Unavailable [address] + [place] [address] SLYKHUIS, PARK Unavailable [address] + [place] [address] [employer] GU[employer] Unavailable [address] + [place] [address] SHRUTI, MARCUS Unavailable [address] + [place] [address] SLYKHUIS, PARK Unavailable [address] + [place] [address] FIVE GUMARA Unavailable [address] + [place] [address] MARCUS BAHENA Unavailable [address] + [place] [address] SLYKHUIS, PARK Unavailable [address] + [place] [address] MARCUS BAHENA Unavailable [address] + [place] [address] SLYKHUIS, PARK Unavailable [address] + [place] [address] SERENE/VINNIE Unavailable [address] + [place] [address] MARCUS BAHENA Unavailable [address] + [place] [address] SLYKHUIS, PARK Unavailable [address] + [place] [address] SERENE/VINNIE Unavailable [address] + [place] [address] MARCUS BAHENA Unavailable [address] + [place] [address] SLYKHUIS, PARK Unavailable [address] + [place] [address] SERENE/VINNIE Unavailable [address] + [place] [address] MARCUS BAHENA Unavailable [address] + [place] [address] SLYKHUIS, PARK Unavailable [address] + [place] [address] SERENE/VINNIE Unavailable [address] + [place] [address] MARCUS BAHENA Unavailable [address] + [place] [address] SLYKHUIS, PARK Unavailable [address] + [place] [address] SERENE/VINNIE Unavailable [address] + [place] [address] Care Team Providers Name Role Phone SOTO, RUBA (CNM) Attending Unavailable SOTO, RUBA (CNM) Attending Unavailable BRUNNER, ROBERT A Attending Unavailable SOTO, RUBA (CNM) Referring Unavailable SOTO, RUBA (CNM) Attending Unavailable SOTO, RUBA (CNM) Referring Unavailable SOTO, RUBA (CNM) Referring Unavailable BRUNNER, ROBERT A Attending Unavailable SOTO, RUBA (CNM) Referring Unavailable SOTO, RUBA (CNM) Attending Unavailable SANJAY HENRIQUEZ Attending Unavailable SOTO, RUBA (CNM) Attending Unavailable SOTO, RUBA (CNM) Referring Unavailable GALDINO, DANIEL (CNM) Attending Unavailable GALDINO, DANIEL (CNM) Attending Unavailable GALDINO, DANIEL (CNM) Referring Unavailable SOTO, RUBA (CNM) Attending Unavailable SOTO, RUBA (CNM) Attending Unavailable GALDINO, DANIEL (CNM) Attending Unavailable SOTO, RUBA (CNM) Attending Unavailable SOTO, RUBA (CNM) Attending Unavailable BRUNNER, ROBERT A Attending Unavailable SOTO, RUBA (CNM) Referring Unavailable GALDINO, DANIEL (CNM) Attending Unavailable SOTO, RUBA (CNM) Referring Unavailable SOTO, RUBA (CNM) Attending Unavailable SOTO, RUBA (CNM) Referring Unavailable SOTO, RUBA (CNM) Attending Unavailable SOTO, RUBA (CNM) Referring Unavailable [facility] DR[facility] MEMO LEWIS Attending Unavailable CIERA STONE MD Primary Care Unavailable Ciera Stone Primary Care Unavailable Cuate Christy Attending Unavailable Ciera Stone Primary Care Unavailable Lana Fulton Attending Unavailable DEAN TAYLOR Primary Care Unavailable Jose Miguel Richard Attending Unavailable Anna Fortune Admitting Unavailable Anna Fortune Attending Unavailable DEAN TAYLOR Primary Care Unavailable Anna Fortune Referring Unavailable Agusto Caballero Attending Unavailable Primay Care Physicia, No Primary Care Unavailable Primay Care Physicia, No Primary Care Unavailable Cuate Christy Attending Unavailable Primay Care Physicia, No Primary Care Unavailable Lana Fulton Attending Unavailable Ciera Stone Attending Unavailable Ciera Stone Primary Care Unavailable Ciera Stone Primary Care Unavailable Murali Turcios Attending Unavailable Ciera Stone Primary Care Unavailable Jovanni Perales Attending Unavailable Ciera Stone Primary Care Unavailable Anjali Mtz Attending Unavailable PROBLEMS PROBLEMS DATE TYPE CONDITION / CODE ATTENDING STATUS SOURCE 12/08/2018 Unknown E87.6 - Ciera Stone Active [place] [facility]al[facility] / [facility] E87.6(ICD-10) Hospital Repository 05/22/2018 Active Anemia NA Active [facility] complicating [place] , third Repository trimester / O99.013(ICD-10) 04/22/2018 Active 27 weeks gestation RUBA SOTO Active [facility] of / (CN) [place] Z3A.27(ICD-10) Repository 03/11/2018 Active 21 weeks gestation RUBA SOTO Active [facility] of / (CN) [place] Z3A.21(ICD-10) Repository 02/14/2018 Active Encounter for NA Active [facility] [place] screening, Repository unspecified / Z36.9(ICD-10) 02/14/2018 Active Encounter for RUBA SOTO Active [facility] supervision of ([facility]) [place] normal first Repository , second trimester / Z34.02(ICD-10) 02/14/2018 Active 17 weeks gestation RUBA SOTO Active [facility] of / (CN) [place] Z3A.17(ICD-10) Repository 12/16/2017 Active Encounter for RUBA SOTO Active [facility] supervision of ([facility]) [place] normal first Repository , first trimester / Z34.01(ICD-10) 01/17/2018 Active 13 weeks gestation RUBA SOTO Active [facility] of / ([facility]) [place] Z3A.13(ICD-10) Repository 12/12/2017 Active Unknown / NA Active [facility] UNK(Unknown) [place] Repository PROCEDURES PROCEDURES No Procedure Records FoundRESULTS RESULTS 12 LEAD ELECTROCARDIOGRAM Observed: 11/07/2018 Status: F Source: [place] 1[facility]47 [facility] Cardiovascular Services [address] [place] [address] 12 Lead EKG 11/04/18 1935 MR#: [id number] Acct: [id number] Name: ISABELLA MACKAY Rep #: [id number] : 2000 18 From: Kal Deleon MD Attending Dr: Status: DEP ER Ordering Dr: Pablito Conrad. Date: 11/04/18 Location: ED Sex: F C Admitted: Test Reason : CP Blood Pressure : / mmHG Vent. Rate : 067 BPM Atrial Rate : 067 BPM P-R Int : 144 ms QRS Dur : 092 ms QT Int : 410 ms P-R-T Axes : 039 084 054 degrees QTc Int : 433 ms Normal sinus rhythm Normal ECG Confirmed by KAL DELEON MD ([id number]), news videotape editor ANAHI COWAN ([id number]) on 11/07/2018 1:47:40 PM Referred By: HUGO Confirmed By:KAL DELEON MD 11/07/18 1347 Date Kal Deleon MD CC: ED PHYSICIAN PROVIDER; Lnaa Fulton MD; Ciera Stone MD Signed EMERGENCY DEPARTMENT Observed: 11/05/2018 Status: F Source: [place] SUMMARY 1:[address] [facility] REPOSITORY [facility] Medical Records Department [address] [place] [address] Emergency Department Summary 11/04/18 2155 MR#: [id number] Acct: [id number] Name: ISABELLA MACKAY Rep #: [id number] : 2000 18 From: Lana Fulton MD PCP: Ciera Stone MD Status: DEP ER - ER Visit Summary Date of Service: 11/04/18 Chief Complaint: Chest pain History of Present Illness: The patient is a 18 F with history of anxiety. She has been having episodes of chest pain, shortness of breath, dizziness, and anxiety. These episodes have been increasing in frequency and duration. Denies episode lasted several hours and the chest pressure was more severe. Patient did start Zoloft a couple days ago and does understand it will take a couple weeks before this is effective. Physical Examination: Vital signs unremarkable. Patient sitting upright in bed no acute distress. Head neck examination unremarkable. Heart is regular rate and rhythm. Lung sounds are clear. Abdomen is soft nontender. Neuro exam is unremarkable. Test Results: EKG is sinus at 67 with no sign of acute ischemia. Portable chest x-ray is unremarkable. CBC and chemistry studies are significant only for potassium 3.3. Troponin is less than 0.015. D-dimer 0.27. test negative. Emergency Department Course and Treatment: By the time patient was seen for exam, her symptoms had abated. She does describe these episodes becoming more frequent and longer in duration. She will be given low-dose Ativan to try when these episodes are severe until her Zoloft is more effective. Treatment Plan: [] Disposition: Discharge Impression: Panic attack This note was generated with Vocalocity dictation software. It may contain incorrect words, spelling, and punctuation that were not noted in review of the chart prior to signing ED Disposition - Plan for ED Patient: Disposition: Home or Assisted Living Chief Complaint: Chest Pain Instructions: ED Panic Attack Prescriptions: Lorazepam [Ativan] 0.5 mg PO TID PRN #10 tablet PRN Reason: Anxiety Referrals: Ciera Stone MD [Primary Care Provider] - 1 Week What to do if you have Problems For any increased pain, shortness of breath, bleeding, nausea or vomiting, chest pain, or any unexpected problems, contact your Primary Care Provider. Call [facility] ([phone]) or report to the closest Emergency Room. Call 911 if necessary. 11/05/18 0157 <Electronically signed by Lana Fulton MD> Date Lana Fulton MD Cosigner Signature (If Indicated): Date CC: Ciera Stone MD DISCHARGE INSTRUCTION Observed: 11/04/2018 Status: F Source: [place] 9:[address] [facility] REPOSITORY [facility] Medical Records Department [address] [place] [address] Discharge Instruction 11/04/182154 MR#: [id number] Acct: [id number] Name: ISABELLA MACKAY Rep #: [id number] : 2000 18 From: Lana Fulton MD PCP: Ciera Stone MD Status: REG ER ED Disposition - Plan for ED Patient: Disposition: Home or Assisted Living Chief Complaint: Chest Pain Instructions: ED Panic Attack Prescriptions: Lorazepam [Ativan] 0.5 mg PO TID PRN #10 tablet PRN Reason: Anxiety Referrals: Ciera Stone MD [Primary Care Provider] - 1 Week What to do if you have Problems For any increased pain, shortness of breath, bleeding, nausea or vomiting, chest pain, or any unexpected problems, contact your Primary Care Provider. Call [facility] ([phone]) or report to the closest Emergency Room. Call 911 if necessary. 11/04/182155 <Electronically signed by Lana Fulton MD> Date Lana Fulton MD Cosigner Signature (If Indicated): Date CC: Ciera Stone MD CBC W/DIFF, AUTOMATED Collected: 11/04/2018 Status: F Source: [place] 7:[address] [facility] REPOSITORY TYPE CODE TESTS RESULT OUT OF RANGE REFERENCE UNITS LAB L100.1000 4.4-11.0 K/mm3 Normal WBC 8.2 LAB L100.1200 4.2-5.4 M/mm3 Normal RBC 4.66 LAB L100.1300 12.0-15.0 g/dl Normal HGB 13.5 LAB L100.1400 37-47 % Normal HCT 40.8 LAB L100.1500 81-99 fL Normal MCV 87.6 LAB L100.1600 27.0-32.0 pg Normal MCH 29.0 LAB L100.1700 32-36 g/gl Normal MCHC 33.1 LAB L100.1810 11.6-14.6 % Normal RDW CV 12.3 LAB L100.1820 35.1-43.9 fl Normal RDW SD 39.4 LAB L100.1900 150-450 K/mm3 Normal PLT 283 LAB L100.2000 6.2-12.0 fl Normal MPV 10.2 LAB L100.2100 47-70 % Normal NEUT% 63.0 LAB L100.2200 19-41 % Normal LY% 25.6 LAB L100.2300 0-10 % Normal MONO% 7.7 LAB L100.2400 0-5 % Normal EO% 3.2 LAB L100.2500 0-1 % Normal BASO% 0.4 LAB L100.2550 0.0-0.9 % Normal IM GRAN % 0.100 Result Comment: IG% - Immature Granulocytes (promyelocytes, myelocytes and metamyelocytes) > 1% indicates that a LEFT SHIFT is Present. LAB L100.2620 2.0-7.7 X10 3/uL Normal Absolute Neut 5.1 LAB L100.2720 0.83-4.51 X10 3/ul Normal Absolute Lymph 2.09 Performed By: #### L100.0100 #### [facility] [address] [place], [place], [address] BASIC METABOLIC Collected: 11/04/2018 Status: F Source: [place] PROFILE (BMP) 7:[address] [facility] REPOSITORY TYPE CODE TESTS RESULT OUT OF RANGE REFERENCE UNITS LAB L501.0100 74-106 mg/dL Normal GLU 89 Result Comment: Please note revised GLUCOSE reference range effective 2017. LAB L501.1000 7-18 mg/dL Normal BUN 13 LAB L501.1100 0.55-1.02 mg/dL Normal CREAT,SERUM 0.62 Result Comment: The validity of the calculated GFR AND GFRAA in patients over 70 years has not been determined. Clinical correlation is essential. LAB L501.1110 >60 mL/min Normal EST GFR 129 Result Comment: Non- GFR Calc LAB L501.1115 >60 mL/min Normal EST GFR - AA 157 Result Comment: GFR Calc LAB L501.1255 ml/min Normal Estimated CRCL 103.97 LAB L501.1300 10-20 RATIO High BUN/CRE 21.0 LAB L501.2200 8.5-10 mg/dL .1 CA Normal 9.2 LAB L501.5300 136-14 mmol/L 5 NA Normal 141 LAB L501.5600 3.5-5. mmol/L Low 1 K 3.3 LAB L501.5900 98-107 mmol/L CL Normal 107 LAB L501.6100 21.0-3 mmol/L 2.0 CO2 Normal 22.0 LAB L501.6200 5-15 GAP Normal 12 Performed By: #### L500.2500, L501.4010 #### [facility] [address] [facility]. [place], [place], [id number] TROPONIN-I Collected: 11/04/2018 Status: F Source: [place] 7:[address] [facility] REPOSITORY TYPE CODE TESTS RESULT OUT OF RANGE REFERENCE UNITS LAB L501.4010 <0.045 ng/mL Normal < 0.015 TROPONIN-I Result Comment: TROPONIN-I EXPECTED VALUES <0.045 Negative 0.045 - 0.590 Consistent with Cardiac Damage > OR = 0.600 Critical Value Not every elevated troponin is indicative of ND. These values should be used with clinical judgement in examining the patient's clinical picture for diagnosis. To establish a diagnosis of ND versus myocardial injury, there must be a demonstrated rise and/or fall in the troponin values, in addition to ischemic symptoms, EKG changes, new regional wall motion abnormality, and/or angiographical evidence. PLEASE NOTE: REFERENCE RANGES EDITED 18 Performed By: #### L500.2500, L501.4010 #### [facility] [address] [facility] [place], [place], [address] ,SERUM,HCG QUALI. Collected: Status: F Source: [place] 11/04/2018 7:[address] [facility] REPOSITORY TYPE CODE TESTS RESULT OUT OF REFERENCE UNITS RANGE LAB L700.6700 =>Qualitative mIU/mL Normal HCG Qual < 1 triggr LAB L700.7000 0-9 Nonpreg Negative Normal HCGSQUAL NEGATIVE Performed By: #### L700.6800 #### [facility] [address] [facility] [place], [address] D-DIMER QUANTITATIVE Collected: 11/04/2018 Status: F Source: [place] (DVT/PE) 7:[address] [facility] REPOSITORY TYPE CODE TESTS RESULT OUT OF RANGE REFERENCE UNITS LAB L300.8000 0.27-0.49 FEU/ug/m Normal D-DIMER 0.27 QUANT Result Comment: NORMAL D-Dimer level (<0.50) indicates no DVT or PE. Performed By: #### L300.8000 #### [facility] [address] [place], [address] CHEST 1 VIEW Observed: 11/04/2018 Status: F Source: [place] (PORTABLE) 7:[address] [facility] REPOSITORY [facility] Imaging Services [address] [place] [address] Chest 1 View (Portable) MR#: [id number] Acct: [id number] Name: ISABELLA MACKAY Rep #: [id number] : 2000 F 18 From: Lupe Ponce MD PCP: Ciera Stone MD Status: REG ER Study: Chest 1 View (Portable) Date of Exam: 11/04/18 Exam# [id number] Ordering Dr: Lana Fulton MD STUDY: X-RAY CHEST REASON FOR EXAM: Female, 18 years old. Chest pain. TECHNIQUE: Single view chest. COMPARISON: 10/23/2018. FINDINGS: The lungs are clear and expanded. There is no demonstrated pleural abnormality. Normal size heart. Normal mediastinum and henrry. Normal visualized pulmonary arteries. Normal visualized aortic arch and descending thoracic aorta. Normal visualized thoracic spine. Normal visualized ribs, clavicles, and shoulders. There is no demonstrated abnormality of the visualized soft tissue structures of the upper abdomen. RAD/Chest 1 View (Portable) IMPRESSION: Normal x-ray examination of the chest. Electronically Signed: Lupe Ponce MD at 20:57 EST Tel , Service support , CC: Lana Fulton MD; Ciera Stone MD Land Leasing Examiner: Signed DISCHARGE INSTRUCTION Observed: 10/31/2018 Status: F Source: [place] 9:[address] [facility] REPOSITORY [facility] Medical Records Department [address] [place] [address] Discharge Instruction 10/31/18909 MR#: [id number] Acct: [id number] Name: ISABELLA MACKAY Rep #: [id number] : 2000 From: Cuate Christy MD PCP: Ciera Stone MD Status: REG ER ED Disposition - Plan for ED Patient: Disposition: Home or Assisted Living Chief Complaint: Headache Instructions: ED Cephalgia Unspecified Prescriptions: Naproxen [Naprosyn] 500 mg PO BID PRN #20 tablet Referrals: Ciera Stone MD [Primary Care Provider] - Additional Instructions: Your prescription was electronically transferred to [facility] pharmacy What to do if you have Problems For any increased pain, shortness of breath, bleeding, nausea or vomiting, chest pain, or any unexpected problems, contact your Primary Care Provider. Call [facility] ([phone]) or report to the closest Emergency Room. Call 911 if necessary. 10/31/18911 <Electronically signed by Cuate Christy MD> Date Cuate Christy MD Cosigner Signature (If Indicated): Date CC: Ciera Stone MD EMERGENCY DEPARTMENT Observed: 10/31/2018 Status: F Source: [place] SUMMARY 9:[address] [facility] REPOSITORY [facility] Medical Records Department [address] [place] [address] Emergency Department Summary 10/31/18 0811 MR#: [id number] Acct: [id number] Name: ISABELLA MACKAY Rep #: [id number] : 2000 18 From: Cuate Christy MD PCP: Ciera Stone MD Status: REG ER - ER Visit Summary Date of Service: 10/31/18 Chief Complaint: Headache/left side pain History of Present Illness: The patient is a 18 F who presents with the above symptoms. She states that she started having a headache yesterday. It is on the right side down into the neck. She has no history of migraines in the past. She has had some nausea without vomiting. She took nothing for this at home. She has also been having 1 week of left side/flank pain into the chest. She denies any dysuria or cough. She has not had a fever. She has no PE or DVT risk factors Physical Examination: Vital signs reviewed. HEENT exam unremarkable. Heart is regular rate and rhythm without murmurs. Lungs are clear to auscultation. She does have mild left-sided chest tenderness in the left axilla area. Abdomen is soft and nontender. Back exam also reveals left thoracic paraspinal tenderness to palpation. Extremities reveal no edema. Skin exam normal. Neurologic exam normal. Test Results: HCG negative. Urinalysis reveals 0-5 white blood cells Emergency Department Course and Treatment: Patient was given normal saline, Compazine and Benadryl. She feels improved after this. Urinalysis is negative for infection or blood. HCG negative. Her pain in the left flank area is likely muscular. I will give her naproxen which will help with her pains at home. She will follow-up with her PCP Treatment Plan: [] Disposition: Discharge Impression: Headache, left flank pain This note was generated with Vocalocity dictation software. It may contain incorrect words, spelling, and punctuation that were not noted in review of the chart prior to signing ED Disposition - Plan for ED Patient: Chief Complaint: Headache Referrals: Ciera Stone MD [Primary Care Provider] - What to do if you have Problems For any increased pain, shortness of breath, bleeding, nausea or vomiting, chest pain, or any unexpected problems, contact your Primary Care Provider. Call [facility] ([phone]) or report to the closest Emergency Room. Call 911 if necessary. 10/31/18 0911 <Electronically signed by Cuate Christy MD> Date Cuate Christy MD Cosigner Signature (If Indicated): Date CC: Ciera Stone MD URINALYSIS, COMPLETE Collected: 10/31/2018 Status: F Source: [place] 8:[address] [facility] REPOSITORY Order Comment: Order Date: 10/31/18 How was Urine Obtained? CLEAN CATCH TYPE CODE TESTS RESULT OUT OF RANGE REFERENCE UNITS LAB L400.3000 Yellow COLOR Normal Yellow LAB L400.3050 Clear Normal CLARITY Clear LAB L400.3200 Normal mg/dl Normal GLUCOSE, UR Normal LAB L400.3300 Negative mg/dL Normal BILIRUBIN URINE Negative LAB L400.3400 Negative mg/dl Normal KETONE UR Negative LAB L400.3465 1.002-1.030 Normal SP.GR. DIPSTX 1.020 LAB L400.3550 5.0 - 8.0 pH UR Normal 6.0 LAB L400.3600 Negative mg/dl High PROT 15 DIPSTX LAB L400.3700 Normal mg/dl High 1 UROBILI LAB L400.3750 Negative Normal NITRITE UR Negative LAB L400.3780 Negative /ul Normal OCCULT BLOOD-UR Negative LAB L400.3800 Negative /ul High LEUK ESTERASE 100 LAB L400.4050 0-5 /hpf WBC Normal 0-5 SEEN LAB L400.4100 0-5 /hpf 0 Normal RBC-UA SEEN LAB L400.4150 5-10 /hpf SQUAM Normal EPI 0-5 SEEN LAB L400.4300 None Seen /hpf 1+ Normal BACTERIA LAB L400.4350 <or=2+ /hpf Normal MUCUS, URINE RARE Performed By: #### L400.0001 #### [facility] [address] [place], [address] ,URINE Collected: 10/31/2018 Status: F Source: [place] 8:[address] [facility] REPOSITORY Order Comment: Order Date: 10/31/18 TYPE CODE TESTS RESULT OUT OF REFERENCE UNITS RANGE LAB L400.8000 Negative Normal HCGUQUAL Negative Result Comment: Very dilute urine specimens, as indicated by a low specific gravity, may not contain u.s. representative levels of hCG. If is still suspected, a first morning urine specimen should be collected 48 hours later and tested. Performed By: #### L400.7600 #### [facility] [address] [facility] [place], [address] EMERGENCY DEPARTMENT Observed: 10/26/2018 Status: F Source: [place] SUMMARY 11:[address] [facility] REPOSITORY [facility] Medical Records Department [address] [facility] [place] [place] [address] Emergency Department Summary 10/26/18 1650 MR#: [id number] Acct: [id number] Name: ISABELLA MACKAY Rep #: [id number] : 2000 18 From: Anjali Mtz MD PCP: Ciera Stone MD Status: DEP ER - ER Visit Summary Date of Service: 10/26/18 Chief Complaint: [] Nonspecific abdominal pain for over a month intermittent, nonspecific skin lesions History of Present Illness: The patient is a 18 F [] patient reports she is about 3 months her is uncomplicated she had a 6 weeks check she has had no vaginal bleeding or discharge denies , she indicates she is having intermittent crampy pain that begins in the right middle left middle quadrant radiates to her back intimately for over a month, she is not having the pain now, she is able to eat and drink her bowel bladder habits been normal again no vaginal bleeding or discharge denies no fever no cough, she went to be evaluated for that intermittent discomfort in addition she indicates she was diagnosed impetigo a few weeks ago on her face consisting of small blisters that were crusted, she took the antibiotics for almost a full course but discontinued them when the lesions resolved and she is concerned she is developing impetigo to her arms, she wanted to be checked for that as well she has no skin lesions anywhere on her body just a concern, she said no exposures Physical Examination: [] She is afebrile her blood pressure is 112/72 General, no distress resting comfortably HEENT is generally unremarkable The neck is supple no adenopathy Cardiovascular, regular rate and rhythm Lungs, clear bilateral Abdomen, soft nontender, there is no areas of discomfort to palpation she is currently not having her symptoms Extremities, no clubbing cyanosis or edema Neurologic, awake alert answering questions appropriately moving all 4 extremities Skin is unremarkable there are no lesions anywhere on her skin her face is normal I explained to the etiology of her abdominal pain remains unclear she has had it for about a month, she is intermittent she is able to eat and drink her bowel bladder habits normal I explained we could do an ED evaluation with lab test x-rays urinalysis etc. she declined that with regards to her skin lesions have explained to her I see no signs of impetigo in the office life-threatening or acute this time she wants to be discharged home for outpatient providers who she will see tomorrow return for change in symptoms and agrees to this plan Test Results: [] Emergency Department Course and Treatment: [] Treatment Plan: [] Disposition: [] Home stable Impression: [] Intermittent abdominal pain for a month, concern for skin lesions This note was generated with Vocalocity dictation software. It may contain incorrect words, spelling, and punctuation that were not noted in review of the chart prior to signing ED Disposition - Plan for ED Patient: Chief Complaint: Abd Pain Referrals: Ciera Stone MD [Primary Care Provider] - What to do if you have Problems For any increased pain, shortness of breath, bleeding, nausea or vomiting, chest pain, or any unexpected problems, contact your Primary Care Provider. Call [facility] ([phone]) or report to the closest Emergency Room. Call 911 if necessary. 10/26/18 3150 <Electronically signed by Anjali Mtz MD> Date Anjali Mtz MD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 Neurologic: Alert and oriented 3. Cranial nerves II through XII are intact. Normal strength and sensation. Psych: Normal affect. Test Results: CBC is marked for an H AND H of 9.5 and 30.9, segmented neutrophils of 78, leukocytes of 11, monocytes of 11. Her last hemoglobin was 8.1 in August 2016. Chem-7 is marked potassium 3.1, chloride 108, BUN of 5, creatinine 0.41. Urinalysis is negative. Emergency Department Course and Treatment: Patient was given a liter bolus of normal saline. heart tones were 153. She is resting comfortably. Treatment Plan: Patient will be discharged instructions to abstain from energy drinks. Instructed to eat potassium rich foods. Follow-up with her neurophysiological technician in 1-2 days not improving. Return to the emergency department for any worsening symptoms. Disposition: To home in improved and stable condition. Impression: 1. Second trimester . 2. Hypokalemia. This note was generated with [employer] dictation software. It may contain incorrect words, spelling, and punctuation that were not noted in review of the chart prior to signing ED Disposition - Plan for ED Patient: Disposition: Home or Assisted Living Chief Complaint: General Illness Instructions: ED Nausea Vomiting Referrals: Dean Taylor [Primary Care Provider] - 1-2 Days if not improving What to do if you have Problems For any increased pain, shortness of breath, bleeding, nausea or vomiting, chest pain, or any unexpected problems, contact your Primary Care Provider. Call [facility] ([phone]) or report to the closest Emergency Room. Call 911 if necessary. 03/17/18 0721 <Electronically signed by Jose Miguel Richard MD> Date Jose Miguel Richard MD Cosigner Signature (If Indicated): Date CC: DEAN TAYLOR CBC W/DIFF, AUTOMATED Collected: 03/17/2018 Status: F Source: [place] 3:[address] [facility] REPOSITORY TYPE CODE TESTS RESULT OUT OF RANGE REFERENCE UNITS LAB L100.1000 4.4-11.0 K/mm3 Normal WBC 9.7 LAB L100.1200 4.2-5.4 M/mm3 Normal RBC 4.24 LAB L100.1300 12.0-15.0 g/dl Low HGB 9.5 LAB L100.1400 37-47 % Low HCT 30.9 LAB L100.1500 81-99 fL Low MCV 72.9 LAB L100.1600 27.0-32.0 pg Low MCH 22.4 LAB L100.1700 32-36 g/gl Low MCHC 30.7 LAB L100.1810 11.6-14.6 % High RDW CV 15.7 LAB L100.1820 35.1-43.9 fl Normal RDW SD 41.8 LAB L100.1900 150-450 K/mm3 Normal PLT 246 LAB L100.2000 6.2-12.0 fl Normal MPV 10.1 LAB L100.2100 47-70 % High NEUT% 77.6 LAB L100.2200 19-41 % Low LY% 11.3 LAB L100.2300 0-10 % High MONO% 10.5 LAB L100.2400 0-5 % Normal EO% 0.4 LAB L100.2500 0-1 % Normal BASO% 0.1 LAB L100.2550 0.0-0.9 % Normal IM GRAN % 0.100 Result Comment: IG% - Immature Granulocytes (promyelocytes, myelocytes and metamyelocytes) > 1% indicates that a LEFT SHIFT is Present. LAB L100.2620 2.0-7.7 X10 3/uL Absolute Neut Normal 7.5 LAB L100.2720 0.83-4.51 X10 3/ul Absolute Lymph Normal 1.10 LAB L100.4500 SMEAR COMMENT Normal SCANNED LAB L100.7600 HYPOCHROMASIA Normal 2+ LAB L100.7700 MICROCYTES Normal 2+ Performed By: #### L100.0100 #### [facility] [address] [place], [place], [address] BASIC METABOLIC Collected: 03/17/2018 Status: F Source: [place] PROFILE (BMP) 3:[address] [facility] REPOSITORY TYPE CODE TESTS RESULT OUT OF RANGE REFERENCE UNITS LAB L501.0100 74-106 mg/dL Normal GLU 94 Result Comment: Please note revised GLUCOSE reference range effective 2017. LAB L501.1000 7-18 mg/dL Low BUN 5 LAB L501.1100 0.55-1.02 mg/dL Low CREAT,SERUM 0.41 Result Comment: The validity of the calculated GFR AND GFRAA in patients over 70 years has not been determined. Clinical correlation is essential. LAB L501.1110 >60 mL/min Normal EST GFR 212 Result Comment: Non- GFR Calc LAB L501.1115 >60 mL/min Normal EST GFR - AA 257 Result Comment: GFR Calc LAB L501.1255 ml/min Normal Estimated CRCL 157.22 LAB L501.1300 10-20 RATIO BUN/CRE Normal 12.3 LAB L501.2200 8.5-10 mg/dL .1 CA Normal 8.6 LAB L501.5300 136-14 mmol/L 5 NA Normal 139 LAB L501.5600 3.5-5. mmol/L Low 1 K 3.1 LAB L501.5900 98-107 mmol/L High CL 108 LAB L501.6100 21.0-3 mmol/L 2.0 CO2 Normal 21.0 LAB L501.6200 5-15 GAP Normal 10 Performed By: #### L500.2500 #### [facility] [address] [place], [address] URINALYSIS, COMPLETE Collected: 03/17/2018 Status: F Source: [place] 3:[address] [facility] REPOSITORY Order Comment: How was Urine Obtained? CLEAN CATCH TYPE CODE TESTS RESULT OUT OF RANGE REFERENCE UNITS LAB L400.3000 Yellow COLOR Normal Yellow LAB L400.3050 Clear Normal CLARITY Clear LAB L400.3200 Normal mg/dl Normal GLUCOSE, UR Normal LAB L400.3300 Negative mg/dL Normal BILIRUBIN URINE Negative LAB L400.3400 Negative mg/dl High KETONE UR 150 Result Comment: CRITICAL VALUE *H CRITICAL VALUE VERIFIED. CALLED TO [facility] ED 03/17/18 0357 Jossy Dill. RESULTS READ BACK BY SAME . LAB L400.3465 1.002-1.030 Normal SP.GR. DIPSTX 1.015 LAB L400.3550 5.0 - 8.0 pH Normal UR 6.0 LAB L400.3600 Negative mg/dl Normal PROT DIPSTX Negative LAB L400.3700 Normal mg/dl Normal UROBILI Normal LAB L400.3750 Negative Normal NITRITE UR Negative LAB L400.3780 Negative /ul Normal OCCULT Negative BLOOD-UR LAB L400.3800 Negative /ul High LEUK ESTERASE 100 LAB L400.4050 0-5 /hpf 0 Normal WBC SEEN LAB L400.4100 0-5 /hpf 0 Normal RBC-UA SEEN LAB L400.4150 5-10 /hpf Normal SQUAM EPI 5-10 SEEN LAB L400.4300 None Seen /hpf 0 Normal BACTERIA SEEN LAB L400.4350 <or=2+ /hpf 0 Normal MUCUS, URINE SEEN Performed By: #### L400.0001 #### [facility] [address] [place], [address] PROGRESS Observed: 02/28/2018 Status: COMPLETED Source: [place] 11:21 AM [facility] REPOSITORY HNO ID: [id number] Author: Robert Brunner Service: (none) Author Type: Physician Type: Progress Notes Filed: 02/28/2018 11:22 AM Note Text: A kinsey? fetus in utero with symmetric measurements Adequate growth (AGA). Estimated Date of Delivery: 07/22/18 EGA = 19w3d The anatomy appears normal. There are no evident malformations and /or effusions. No genetic markers are noted. The amniotic fluid volume is within normal limits. The sensitivity of ultrasound in the detection of malformations overall is approximately 35%. RECOMMENDATIONS: - Follow up ultrasound as clinically indicated CBC Collected: 02/14/2018 Status: F Source: [place] 10:30 AM [facility] REPOSITORY TYPE CODE TESTS RESULT OUT OF REFERENCE UNITS RANGE LAB WBC 3.70-11.00 k/uL WBC 8.24 LAB RBC 3.90-5.20 m/uL RBC 4.42 LAB HGB 11.5-15.5 g/dL Low Hemoglobin 10.1 LAB HCT 36.0-46.0 % Low Hematocrit 32.6 LAB MCV 80.0-100.0 fL Low MCV 73.8 LAB MCH 26.0-34.0 pG Low MCH 22.9 LAB MCHC 30.5-36.0 g/dL MCHC 31.0 LAB RDWCV 11.5-15.0 % RDW-CV High 17.0 LAB PLTCT 150-400 k/uL Platelet Count 271 LAB MPV 9.0-12.7 fL MPV 10.7 LAB ABSNUC <0.01 k/uL Absolute nRBC <0.01 Performed By: #### CBC, HBSAG, HIV12C, RUBIGG, SYPHGX #### [facility] [address] [place] [id number] HEPATITIS B SURF. AG Collected: 02/14/2018 Status: F Source: [place] 10:30 AM [facility] REPOSITORY TYPE CODE TESTS RESULT OUT OF REFERENCE UNITS RANGE LAB HBSAG Negative Hepatitis B Negative Surf. Ag Performed By: #### CBC, HBSAG, HIV12C, RUBIGG, SYPHGX #### [facility] [address] [place] [address] HIV 12 COMBO (AG/AB) Collected: 02/14/2018 Status: F Source: [place] 10:30 AM [facility] REPOSITORY TYPE CODE TESTS RESULT OUT OF REFERENCE UNITS RANGE LAB HVAGAB Non Reactive HIV Non Reactive 12 Ag/Ab Result Comment: (NOTE) HIV Information: [place] Rev. Code 3701.243(E): This information has been disclosed to you from confidential records protected from disclosure by state law. You shall make no further disclosure of this information without the specific, written, and informed release of the individual to whom it pertains, or as otherwise permitted by state law. A general authorization for the release of medical or other information is not sufficient for the purpose of the release of HIV test results or diagnoses. Performed By: #### CBC, HBSAG, HIV12C, RUBIGG, SYPHGX #### [place] [address] [place] [address] RUBELLA IGG ANTIBODY Collected: 02/14/2018 Status: F Source: [place] 10:30 AM [facility] REPOSITORY TYPE CODE TESTS RESULT OUT OF RANGE REFERENCE UNITS LAB RUBGQL Negative Abnormal Rubella IgG Positive Alert Ab, Qual Result Comment: Sample is considered positive for IgG antibodies to rubella virus. A positive result indicates previous exposure to Rubella virus or vaccination. LAB RUBQNT Index Value Rubella IgG Ab 3.01 Result Comment: Index values are interpreted as follows: Negative specimens <0.90 Equivocol specimens 0.90 to 0.99 Positive specimens >0.99 The magnitude of the measured result is not indicative of the amount of antibody present. Performed By: #### CBC, HBSAG, HIV12C, RUBIGG, SYPHGX #### [place] [address] [place] [address] SYPHILIS IGG WITH Collected: 02/14/2018 Status: F Source: [facility] 10:30 AM [facility] REPOSITORY TYPE CODE TESTS RESULT OUT OF REFERENCE UNITS RANGE LAB SYPHQL Nonreactive Syphilis IgG, Nonreactive Qual Result Comment: In conjunction with this result, the immune status of the patient should be evaluated based on their clinical status, related risk factors, and other diagnostic test results. LAB SYPHLG AI Syphilis IgG <0.2 Result Comment: Antibody index is interpreted as follows: Non reactive SPECIMENS <=0.8 Weak reactive SPECIMENS 0.9 to 5.9 Reactive SPECIMENS >=6.0 Performed By: #### CBC, HBSAG, HIV12C, RUBIGG, SYPHGX #### [place] [address] [place] [address] TYPE AND SCR,PRENATL Collected: 02/14/2018 Status: F Source: [place] 10:30 AM [facility] REPOSITORY TYPE CODE TESTS RESULT OUT OF REFERENCE UNITS RANGE LAB %ABR O ABO/RH(D) POSITIVE LAB % Antibody NEG Screen Performed By: #### TSPN #### [facility] [address] [place], [place] [address] PROGRESS Observed: 01/17/2018 Status: COMPLETED Source: [place] 1:00 PM [facility] REPOSITORY HNO ID: [id number] Author: Robert Brunner Service: (none) Author Type: Physician Type: Progress Notes Filed: 01/17/2018 1:00 PM Note Text: A single intrauterine gestational sac is noted with a regular outline. There is no decidual hemorrhage. The yolk sac is visualized and shows normal shape and echogenicity. A living single fetus is noted. The heart rate is within normal range. The CRL corresponds to the gestational age. Estimated Date of Delivery: 07/22/18 EGA = 13w3d Negative NT screen for Trisomy 21. The sensitivity of nuchal translucency measurement for Trisomy 21 is ~60%. The anatomy appears normal in the areas visualized. RECOMMENDATIONS: - The patient requested the sequential screening. The test has been ordered - Ultrasound examination at 18 to 20 weeks TOXICOLOGY SCREEN,UR Collected: 12/16/2017 Status: F Source: [place] 2:59 PM [facility] REPOSITORY TYPE CODE TESTS RESULT OUT OF REFERENCE UNITS RANGE LAB UPCP2 Negative Negative Phencyclidin e, Urine Result Comment: Cutoff threshold at 25 ng/mL. Cross reactivity with other substances can occur with immunoassay screening. In house validation testing showed 80% of preliminary positive samples were confirmed by mass spectrometry (high specificity, quantitative) testing. Greater than 99% of negative screen results were confirmed by mass spectrometry (high specificity, quantitative) testing. LAB UBENZ2 Negative Benzodiazepines, Ur Negative Result Comment: Cutoff threshold at 200 ng/mL. Cross reactivity with other substances can occur with immunoassay screening. In house validation testing showed 90% of preliminary positive samples were confirmed by mass spectrometry (high specificity, quantitative) testing. 80% of negative screen results were confirmed by mass spectrometry (high specificity, quantitative) testing. LAB UCOC2 Negative Cocaine, Negative Urine Result Comment: Cutoff threshold at 300 ng/mL. Cross reactivity with other substances can occur with immunoassay screening. In house validation testing showed greater than 99% of preliminary positive samples were confirmed by mass spectrometry (high specificity, quantitative) testing. Greater than 99% of negative screen results were confirmed by mass spectrometry (high specificity, quantitative) testing. LAB UAMPH2 Negative Amphetamines, Urine Negative Result Comment: Cutoff threshold at 1000 ng/mL. Cross reactivity with other substances can occur with immunoassay screening. In house validation testing showed 70% of preliminary positive samples were confirmed by mass spectrometry (high specificity, quantitative) testing. Greater than 99% of negative screen results were confirmed by mass spectrometry (high specificity, quantitative) testing. LAB UTHC2 Negative Cannabinoids, Urine Negative Result Comment: Cutoff threshold at 50 ng/mL. Cross reactivity with other substances can occur wtih immunoassay screening. In house validation testing showed 80% of preliminary positive samples were confirmed by mass spectrometry (high specificity, quantitative) testing. Greater than 99% of negative screen results were confirmed by mass spectrometry (high specificity, quantitative) testing. LAB UOPI2 Negative Opiates, Negative Urine Result Comment: Cutoff threshold at 300 ng/mL. Cross reactivity with other substances can occur wtih immunoassay screening. In house validation testing showed greater than 99% of preliminary positive samples were confirmed by mass spectrometry (high specificity, quantitative) testing. 90% of negative screen results were confirmed by mass spectrometry (high specificity, quantitative) testing. LAB UBARB2 Negative Barbiturates, Urine Negative Result Comment: Cutoff threshold at 200 ng/mL. Cross reactivity with other substances can occur with immunoassay screening. In house validation testing showed greater than 99% of preliminary positive samples were confirmed by mass spectrometry (high specificity, quantitative) testing. Greater than 99% of negative screen results were confirmed by mass spectrometry (high specificity, quantitative) testing. LAB UETOH <11 mg/dL <11 Ethanol, Urine LAB UOXYC Negative Oxycodone, Negative Urine Result Comment: Cutoff threshold at 100 ng/mL. Cross reactivity with other substances can occur with immunoassay screening. In house validation testing showed greater than 99% of preliminary positive samples were confirmed by mass spectrometry (high specificity, quantitative) testing. Greater than 99% of negative screen results were confirmed by mass spectrometry (high specificity, quantitative) testing. Comment: Immunoassay screen only. Detection of any drug(s) in this urine toxicology panel is presumptive only. Intended use is for evaluation of suspected acute overdose. These tests are for medical purposes onl y and should not be used for compliance monitoring, legal, or forensic use. If clinically indicated, confirmation by high specificity, quantitative methodology may be requested on the same specimen through Client Services ([phone]) if contacted within 48 hours of initial testing. These tests were developed and their performance characteristics determined by [facility] ([facility]). They have not been cleared or a pproved by the FDA. [facility] is regulated under CLIA as qualified to perform high complexity testing. These tests are used for clinical purposes. They should not be regarded as investigational or for research. Performed By: #### UTOX2 #### [facility] [address] [id number] PROGRESS Observed: 12/16/2017 Status: COMPLETED Source: [place] 1:09 PM [facility] REPOSITORY HNO ID: [id number] Author: Ruba Soto Service: (none) Author Type: Plant Manager Type: Progress Notes Filed: 12/16/2017 6:36 PM Note Text: INITIAL OB ASSESSMENT OB Provider: Ruba Soto CNM HPI: Isabella Mackay is a 17 year old female here to establish Obstetrical Care. Patient's last menstrual period was 10/15/2017 (approximate). from OB Dating Form. Cycle length: 30 days Complaints: None. Seen in ER on 11/28/17 for fever and flu symptoms. Influenza positive, treated with Tamiflu. was unplanned but accepted. Obstetric History T0 L0 SAB0 TAB0 Ectopic0 Multiple0 Live Births0 Prior : never History of 4th degree laceration: No Patient's Risk Screening for delivery: History of abnormal pap: No Prior treatment for cervical dysplasia: none. 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 Patient BMI over 30? No Marital Status:Committed relationship Partner: Name: Yusuf Hall Age: 17 Occupation: [employer] Gender: male History of STDs: None PAST MEDICAL HISTORY Diagnosis Date - Anemia - Pneumonia age 4 No past surgical history on file. Current Outpatient Prescriptions on File Prior to Visit: Bkwvewku-Sr-Thw-Fe-FA ( VITAMIN) tab Take 1 tablet by mouth. No current facility-administered medications on file prior to visit. Review of Systems: GENERAL: Negative for: Fever or Chills HEENT: Negative for: Headache, Impaired Vision, Ringing in Ears, Nosebleeds NECK: Negative for: Swelling, Pain, Stiffness RESPIRATORY: Negative for: Cough, Shortness of breath, Wheezing GASTROINTESTINAL: Negative for: Heartburn, Constipation, Diarrhea, Blood in stool, Vomiting MUSCULOSKELETAL: Negative for: Muscle or joint pain, stiffness, Joint swelling NEUROLOGIC/PSYCHIATRIC: Negative for: Weakness, Paralysis, Numbness, Tingling, Tremor, Anxiety, Depression, Memory loss SKIN: Negative for: Rash, Itching GENITOURINARY: Negative for: vaginal itching, vaginal discharge, hematuria or dysuria PHYSICAL EXAM: BP 122/60 Wt 108 lb 12.8 oz (49.4kg) LMP 10/15/2017 GENERAL: pleasant female in no apparent distress DERMATOLOGY: Normal and without lesions NECK: Supple and full range of motion CHEST: Clear to auscultation Normal inspiratory effort Regular rate and rhythm No murmurs, clicks, rubs or gallops BREAST: soft, non-tender, symmetric, no dominant mass, normal nipple-areolar complex, no lymphadenopathy and no nipple discharge ABDOMEN: soft, non-tender and no masses NEURO: alert and oriented x3,exam grossly non-focal PELVIS: External genitalia normal without lesions. Perineal body intact. No vaginal or cervical lesions. Cervix closed. Uterus 8 week size. No adnexal masses or tenderness. Clinical Pelvimetry: Pelvimetry clinically assessed as adequate Limited OB ultrasound exam: single intrauterine , positive cardiac activity and crown-rump length 19.1mm, 8w5d EGA ASSESSMENT: 17 year old at 8 wks gestational age PLAN: 1) Patient oriented to practice. Discussed nutrition, folic acid supplementation, dietary guidelines, exercise, smoking, alcohol, caffeine, and drug use. Discussed routine OB labs including STD/HIV. Discussed aneuploidy screening options including serum screening and nuchal translucency. NT ordered and would like this done. Will get PN labs at this visit. CF carrier screening discussed and declines at this time. 2) S=D, U/S consistent with LMP. ROBERT: 07/22/18 at this time. Follow up in 4 weeks or sooner prn. Ruba Soto CNM HOSP Observed: 12/16/2017 Status: COMPLETED Source: [place] 12:45 PM [facility] REPOSITORY Initial Office Visit (WOOB) CODIEISABELLA DURBIN ([id number]) 2000 F Date Time Provider Department 12/16/17 12:45 PM ASSESSMENT ORTHOPEDIC SURGEON [facility] During your visit today, we recorded the following information about you: Blood pressure Weight 122/60 49.4 kg Ruba Soto CNM 12/16/2017 6:36 PM Signed INITIAL OB ASSESSMENT OB Provider: Ruba Soto CNM HPI: Isabella Mackay is a 17 year old female here to establish Obstetrical Care. Patient's last menstrual period was 10/15/2017 (approximate). from OB Dating Form. Cycle length: 30 days Complaints: None. Seen in ER on 11/28/17 for fever and flu symptoms. Influenza positive, treated with Tamiflu. was unplanned but accepted. Obstetric History T0 L0 SAB0 TAB0 Ectopic0 Multiple0 Live Births0 Prior : never History of 4th degree laceration: No Patient's Risk Screening for delivery: History of abnormal pap: No Prior treatment for cervical dysplasia: none. 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 Patient BMI over 30? No Marital Status:Committed relationship Partner: Name: Yusuf Hall Age: 19 Occupation: [employer] Gender: male History of STDs: None PAST MEDICAL HISTORY Diagnosis Date - Anemia - Pneumonia age 4 No past surgical history on file. Current Outpatient Prescriptions on File Prior to Visit: Qxyqkaxl-Xm-Lcv-Fe-FA ( VITAMIN) tab Take 1 tablet by mouth. No current facility-administered medications on file prior to visit. Review of Systems: GENERAL: Negative for: Fever or Chills HEENT: Negative for: Headache, Impaired Vision, Ringing in Ears, Nosebleeds NECK: Negative for: Swelling, Pain, Stiffness RESPIRATORY: Negative for: Cough, Shortness of breath, Wheezing GASTROINTESTINAL: Negative for: Heartburn, Constipation, Diarrhea, Blood in stool, Vomiting MUSCULOSKELETAL: Negative for: Muscle or joint pain, stiffness, Joint swelling NEUROLOGIC/PSYCHIATRIC: Negative for: Weakness, Paralysis, Numbness, Tingling, Tremor, Anxiety, Depression, Memory loss SKIN: Negative for: Rash, Itching GENITOURINARY: Negative for: vaginal itching, vaginal discharge, hematuria or dysuria PHYSICAL EXAM: BP 122/60 Wt 108 lb 12.8 oz (49.4kg) LMP 10/15/2017 GENERAL: pleasant female in no apparent distress DERMATOLOGY: Normal and without lesions NECK: Supple and full range of motion CHEST: Clear to auscultation Normal inspiratory effort Regular rate and rhythm No murmurs, clicks, rubs or gallops BREAST: soft, non-tender, symmetric, no dominant mass, normal nipple-areolar complex, no lymphadenopathy and no nipple discharge ABDOMEN: soft, non-tender and no masses NEURO: alert and oriented x3,exam grossly non-focal PELVIS: External genitalia normal without lesions. Perineal body intact. No vaginal or cervical lesions. Cervix closed. Uterus 8 week size. No adnexal masses or tenderness. Clinical Pelvimetry: Pelvimetry clinically assessed as adequate Limited OB ultrasound exam: single intrauterine , positive cardiac activity and crown-rump length 19.1mm, 8w5d EGA ASSESSMENT: 17 year old at 8 wks gestational age PLAN: 1) Patient oriented to practice. Discussed nutrition, folic acid supplementation, dietary guidelines, exercise, smoking, alcohol, caffeine, and drug use. Discussed routine OB labs including STD/HIV. Discussed aneuploidy screening options including serum screening and nuchal translucency. NT ordered and would like this done. Will get PN labs at this visit. CF carrier screening discussed and declines at this time. 2) S=D, U/S consistent with LMP. ROBERT: 07/22/18 at this time. Follow up in 4 weeks or sooner prn. Ruba Soto CNM Referring Provider: SELF [200] Allergies As of Date: 12/16/2017 (No Known Allergies) Date Reviewed: 12/16/2017 Reviewed by: Ruba (Francisco) Charles - Fully Assessed Visit Diagnosis:Encounter for supervision of normal first in first trimester [Z34.01] Order(s):CBC [SQCBC] Order #: [id number] FUTURE SYPHILIS IGG WITH CONF [SQSYPHGX] Order #: [id number] FUTURE RUBELLA IGG AB [SQRUBQNT] Order #: [id number] FUTURE HEP B SURF AG SCRN [SQHBSAG] Order #: [id number] FUTURE HIV 1,2 COMBO (AG/AB) [SQHIV12] Order #: [id number] FUTURE TYPE + SCREEN [SQTSPN] Order #: [id number] FUTURE GC/CHLAMYDIA DNA DET [SQGCCAMP] Order #: [id number] URINE CULTURE [SQURCUL] Order #: [id number]. #:[id number] TOX SCREEN ROUT UR [SQUTOX2] Order #: [id number]. #:[id number] NUCHAL TRANSLUCENCY WHI [2269231] Order #: [id number]: 1 Prescriptions as of 12/16/2017 Sig: VITAMIN,CALCIUM,MINE* Take 1 tablet by mouth. Problem List As Of Date 12/16/2017 Noted Resolved H/O influenza [Z87.09] INVALID FOR* More... Patient requested diagnostic testing [Z01.89] INVALID FOR* More... Encounter for supervision of normal first pregn*INVALID FOR* Disposition: Return in about 4 weeks (around 01/13/2018) for NT U/S to be scheduled. HEATHER in 4 weeks. . Follow-up and Disposition History Recorded Encounter Status:Closed by RUBA SOTO on 12/16/17 GC/CHLAMYDIA AMPLIF Collected: 12/16/2017 Status: F Source: [place] 4:47 AM [facility] RE[facility]IT[facility] TYPE CODE TESTS RESULT OUT OF REFERENCE UNITS RANGE LAB GCCTSR GC/Chlam Amp Cervix Source LAB GCAMPL GC Negative Amplification for Neisseria gonorrhoeae by amplification. LAB CLAMPL Chlamydia Negative Amplif for Chlamydia trachomatis by amplification. Performed By: #### GCCT #### [facility] [address] [place], [place] [address] Observed: 12/16/2017 Status: F Source: [place] URINE CULTURE 1:30 AM [facility] REPOSITORY Sp. Request/Comment: - Specimen received in preservative Culture Result - 50,000 - <100,000 CFU/ml Normal urogenital marbella Performed By: #### URCUL #### [facility] [address] [place], [place] [address] CNNURSE Observed: 12/12/2017 Status: COMPLETED Source: [place] 3:30 PM [facility] REPOSITORY Nurse Visit (WOOB) ISABELLA MACKAY ([id number]) 2000 F Date Time Provider Department 12/12/17 3:30 PM [facility] During your visit today, we recorded the following information about you: Last Period 10/15/17 Estevan Page RN 12/12/2017 3:59 PM Signed SEQUENTIAL SCREENINGS The [facility] offers sequential screenings for women who are interested in screenings for chromosomal abnormalities and certain defects during a . The sequential screen combines ultrasound and blood tests to determine the risk of chromosomal abnormalities, including Down's Syndrome (Trisomy 21) and Trisomy 18, as well as open neural tube defects including spina bifida. Ultrasound examination is performed between 11 weeks and 13 weeks gestational age. Blood tests are drawn after the ultrasound and again later in the between 15 and 21 weeks gestational age. Please let your physician know if you are interested in this testing. It will require an appointment with our transfill technician. This is not an ultrasound performed by a physician in our office during a routine visit. SIGNS AND SYMPTOMS OF LABOR 1. Contractions every 10 minutes or more often 2. Clear, pink, or brownish fluid (water) leaking from vagina 3. Feeling that baby is pushing down, pressure 4. Low, dull backache 5. Cramps that feel like a period 6. Cramps with or without diarrhea If you notice any of the above symptoms, contact our office at [phone] and ask to speak with a nurse. After hours, you can call doctors registry at [phone] OR call [facility] at [phone] and ask to have the doctor online publisher paged. If you consider this an emergency, dial 9-1-1 or go to your nearest emergency department. Cord-Blood Banking Up until recently, the umbilical cord--along with the blood that remained in it after a baby was born and the cord cut--was simply discarded by the hospital. Then, in the late , researchers discovered that cord blood possessed unusual properties that made it useful in the treatment of patients with some cancers and other illnesses. While the actual process of collecting cord blood is straightforward, many parents are not even aware that this option now exists, much less familiar with all the issues involved. The case for saving your baby's cord blood The blood running back and forth between your baby and the placenta is full of immature cells called stem cells. Unlike embryonic stem cells, which have the ability to develop into any type of body cell, cord-blood stem cells already are locked into a certain, vital function: making all the different components of the blood, such as platelets, white blood cells, and red blood cells-serving, in effect, like bone marrow. When transfused into a patient whose own blood cells have faulty genetic coding or have been destroyed by chemotherapy or other cancer treatments, the cord-blood cells can implant themselves in the bone marrow and generate legions of new, healthy cells. These days, cord-blood transplants most commonly are used in cancer patients when a donor can't be found for a bone-marrow transplant. The treatment is particularly effective in young patients-the [facility] Cord Blood [facility] reports a 70 percent success rate in children, but only 20 to 40 percent in adults. Researchers envision improving those odds and see many future applications as well, such as curing sickle cell disease and other blood-related genetic illnesses. So there is a possibility that your child, or someone else, may need these super-healthy and versatile cells one day. The drawbacks Aside from not knowing about this medical option, the main reason most people do not save their baby's stem cells is cost. In a private blood bank, the initial costs run from $275 to $1,500. Most also charge a yearly storage fee of $50 to $95. The advantage of using a private bank is that your sample is saved for only you to use. An alternative to private banking Public cord-blood diez are an alternative. These cost no money to use, but your sample is not specifically saved for you. Another person with a more immediate need may use it. If the time should come that you need stem cells, yours may still be available, or you may use donations from other people without charge. You also can direct your sample to go to a relative with an immediate need if the blood type matches. Anyone else needing to use stem cells from a public bank who has not been a donor must pay for it, sometimes tens of thousands of dollars. Will my family benefit from saving stem cells? Right now, situations in which stem cells would be helpful are quite rare. As mentioned earlier, stem-cell transplants are most commonly used for rare genetic conditions and for some types of cancer, including leukemia and lymphoma. And even with these present uses, many questions remain. In cancer treatment, for example, some researchers are concerned about the wisdom of transplanting back into the child the same cells that already showed a propensity to become malignant. Doctors also aren't sure if the number of cells taken at the time of would be enough to treat a full-grown 16-year-old. It is also not completely clear how active the cells would be after years of being stored. The treatment is so new and rare, we just don't have the data yet to resolve these important issues. What do the experts say? The [employer] [employer] encourages philanthropic blood banking in public diez, but only for families with a current or potential need. Blood-bank proponents encourage any kind of banking, pointing out that research is getting closer and closer to many diverse, live-saving applications. How do I decide? Each family must weigh the pros and cons for themselves. Some families say that any cost is worth their peace of mind. Others say that in the face of uncertainty about the effectiveness of the treatment, they will use their resources elsewhere. Some choose the middle ground of donating publicly, knowing that their sample might benefit another family, if not themselves. For more information, ask your doctor or nurse, and be sure to check out our article on the technical aspects of cord-blood banking. Technical Aspects of Cord-Blood Banking If you are interested in storing your baby's umbilical-cord blood because of its possible use in emerging medical treatments, you must make arrangements with a blood bank before your child is born. The collection procedure is quite simple: After delivery of the baby, the umbilical cord is clamped and cut in the usual way. The blood that remains in the umbilical-cord vessels is then collected in sterile containers. The blood may be removed from the cord with a large needle or allowed to flow freely, depending on the company's collection system. The containers may look like large test tubes or like the plastic bags used in a blood bank. It does not cause the mother or the baby any pain to collect the blood, and no blood is taken that the baby needs at the moment. The nurse, mainstreaming facilitator, or physician will then label the samples, check them over with you, and package them for a special pickup arranged with a commercial carrier. When the blood arrives at the blood-bank facility, it is processed and the parents are notified. It is then kept in an advanced storage system for years. How do I know that my sample is safe? Power outages and bankruptcies potentially could threaten any organization, but so far none have been reported. It is to be hoped that the scientists in these diez would arrange for safe transfer to another facility if the need arose. YOU MUST MAKE ARRANGEMENTS AHEAD OF TIME! Public cord-blood diez--DONATION: [employer] [phone] [facility], [place], Operated By [facility] Placental Blood Program, [facility] Umbilical Cord Blood Bank, Private cord-blood diez--SAVING FOR YOUR OWN USE: [employer], (I think this is the least expensive) [employer] [phone] [employer], ([phone]) [employer] [place] [facility], [phone] 700[employer], [phone] [place] [facility], Cord Blood Registry, ([phone]) [facility], An Internet search may provide you with additional listings. Referring Provider: SELF [200] Allergies As of Date: 12/12/2017 (No Known Allergies) Date Reviewed: 12/12/2017 Reviewed by: Estevan Page RN - Fully Assessed Reason for Visit: Care [86] Cmt: Pre-New OB Primary Visit Diagnosis:Supervision of normal first , antepartum [Z34.00] Other Visit Diagnoses:H/O influenza [Z87.09] Patient requested diagnostic testing [Z01.89] Prescriptions as of 12/12/2017 Sig: VITAMIN,CALCIUM,MINE* Take 1 tablet by mouth. Problem List As Of Date 12/12/2017 Noted Resolved H/O influenza [Z87.09] INVALID FOR* More... Patient requested diagnostic testing [Z01.89] INVALID FOR* More... Other instructions from your clinician: SEQUENTIAL SCREENINGS The [facility] offers sequential screenings for women who are interested in screenings for chromosomal abnormalities and certain defects during a . The sequential screen combines ultrasound and blood tests to determine the risk of chromosomal abnormalities, including Down's Syndrome (Trisomy 21) and Trisomy 18, as well as open neural tube defects including spina bifida. Ultrasound examination is performed between 11 weeks and 13 weeks gestational age. Blood tests are drawn after the ultrasound and again later in the between 15 and 21 weeks gestational age. Please let your physician know if you are interested in this testing. It will require an appointment with our transfill technician. This is not an ultrasound performed by a physician in our office during a routine visit. SIGNS AND SYMPTOMS OF LABOR 1. Contractions every 10 minutes or more often 2. Clear, pink, or brownish fluid (water) leaking from vagina 3. Feeling that baby is pushing down, pressure 4. Low, dull backache 5. Cramps that feel like a period 6. Cramps with or without diarrhea If you notice any of the above symptoms, contact our office at [phone] and ask to speak with a nurse. After hours, you can call doctors registry at [phone] OR call [facility] at [phone] and ask to have the doctor online publisher paged. If you consider this an emergency, dial [phone]- or go to your nearest emergency department. Cord-Blood Banking Up until recently, the umbilical cord--along with the blood that remained in it after a baby was born and the cord cut--was simply discarded by the hospital. Then, in the late , researchers discovered that cord blood possessed unusual properties that made it useful in the treatment of patients with some cancers and other illnesses. While the actual process of collecting cord blood is straightforward, many parents are not even aware that this option now exists, much less familiar with all the issues involved. The case for saving your baby's cord blood The blood running back and forth between your baby and the placenta is full of immature cells called stem cells. Unlike embryonic stem cells, which have the ability to develop into any type of body cell, cord-blood stem cells already are locked into a certain, vital function: making all the different components of the blood, such as platelets, white blood cells, and red blood cells-serving, in effect, like bone marrow. When transfused into a patient whose own blood cells have faulty genetic coding or have been destroyed by chemotherapy or other cancer treatments, the cord-blood cells can implant themselves in the bone marrow and generate legions of new, healthy cells. These days, cord-blood transplants most commonly are used in cancer patients when a donor can't be found for a bone-marrow transplant. The treatment is particularly effective in young patients- the [facility] Cord Blood [facility] reports a 70 percent success rate in children, but only 20 to 40 percent in adults. Researchers envision improving those odds and see many future applications as well, such as curing sickle cell disease and other blood-related genetic illnesses. So there is a possibility that your child, or someone else, may need these super-healthy and versatile cells one day. The drawbacks Aside from not knowing about this medical option, the main reason most people do not save their baby's stem cells is cost. In a private blood bank, the initial costs run from $275 to $1,500. Most also charge a yearly storage fee of $50 to $95. The advantage of using a private bank is that your sample is saved for only you to use. An alternative to private banking Public cord-blood diez are an alternative. These cost no money to use, but your sample is not specifically saved for you. Another person with a more immediate need may use it. If the time should come that you need stem cells, yours may still be available, or you may use donations from other people without charge. You also can direct your sample to go to a relative with an immediate need if the blood type matches. Anyone else needing to use stem cells from a public bank who has not been a donor must pay for it, sometimes tens of thousands of dollars. Will my family benefit from saving stem cells? Right now, situations in which stem cells would be helpful are quite rare. As mentioned earlier, stem-cell transplants are most commonly used for rare genetic conditions and for some types of cancer, including leukemia and lymphoma. And even with these present uses, many questions remain. In cancer treatment, for example, some researchers are concerned about the wisdom of transplanting back into the child the same cells that already showed a propensity to become malignant. Doctors also aren't sure if the number of cells taken at the time of would be enough to treat a full-grown 16-year-old. It is also not completely clear how active the cells would be after years of being stored. The treatment is so new and rare, we just don't have the data yet to resolve these important issues. What do the experts say? The [employer] [employer] encourages philanthropic blood banking in public diez, but only for families with a current or potential need. Blood-bank proponents encourage any kind of banking, pointing out that research is getting closer and closer to many diverse, live-saving applications. How do I decide? Each family must weigh the pros and cons for themselves. Some families say that any cost is worth their peace of mind. Others say that in the face of uncertainty about the effectiveness of the treatment, they will use their resources elsewhere. Some choose the middle ground of donating publicly, knowing that their sample might benefit another family, if not themselves. For more information, ask your doctor or nurse, and be sure to check out our article on the technical aspects of cord-blood banking. Technical Aspects of Cord-Blood Banking If you are interested in storing your baby's umbilical- cord blood because of its possible use in emerging medical treatments, you must make arrangements with a blood bank before your child is born. The collection procedure is quite simple: After delivery of the baby, the umbilical cord is clamped and cut in the usual way. The blood that remains in the umbilical-cord vessels is then collected in sterile containers. The blood may be removed from the cord with a large needle or allowed to flow freely, depending on the company's collection system. The containers may look like large test tubes or like the plastic bags used in a blood bank. It does not cause the mother or the baby any pain to collect the blood, and no blood is taken that the baby needs at the moment. The nurse, mainstreaming facilitator, or physician will then label the samples, check them over with you, and package them for a special pickup arranged with a commercial carrier. When the blood arrives at the blood- bank facility, it is processed and the parents are notified. It is then kept in an advanced storage system for years. How do I know that my sample is safe? Power outages and bankruptcies potentially could threaten any organization, but so far none have been reported. It is to be hoped that the scientists in these diez would arrange for safe transfer to another facility if the need arose. YOU MUST MAKE ARRANGEMENTS AHEAD OF TIME! Public cord-blood diez--DONATION: [employer] [phone] [facility] [place], Operated By [facility] Placental Blood Program, [facility] Umbilical Cord Blood Bank, Private cord-blood diez--SAVING FOR YOUR OWN USE: [employer], (I think this is the least expensive) [employer] [phone] [employer], ([phone]) [employer] [place] [facility], [phone] 700[employer], [phone] [place] [facility], Cord Blood Registry, (870) [facility], An Internet search may provide you with additional listings. Disposition: Return in 4 days (on 12/16/2017) for New OB with Ruba Soto. Follow-up and Disposition History Recorded Letter Text Dear Isabella Mackay: How to activate your [facility] [employer] Account 1. Visit the [employer] Signup page at [email or web address] 2. Identify yourself using your one-time use activation code: [email or web address] 3. Follow the on-screen prompts to choose your own secure username and password The following information will be necessary to access your account for the first time: Information needed for sign-up: Your custom activation code used one-time only for the initial account set-up. Your date of The last 4 digits of your social security number What to do next: Fill in the requested information on the Identify Yourself Form at [email or web address] , click Next. Create your login and password, choose a [employer] ID and password that will be easy for you to use, but impossible for anyone else to guess. Pick a security question that will assist you in the event you forget your password the next time you log-on. If you have difficulty activating your account, please call our [employer] helpline at [phone] or toll free at . We hope you enjoy using [employer]! Kindest Regards, [facility] [employer] Team Encounter Status:Closed by ESTEVAN PAGE RN on 12/12/17 ALLERGIES ALLERGIES DATE TYPE / CODE NAME / CODE REACTION SEVERITY SOURCE 11/04/2018 Drug cephalexin/F0060 Rash Unknown [facility]/416 53834(RXNORM) [facility] 407704(SNOM Repository ED CT) 10/23/2018 Drug No Known Unknown [facility] Allergy/416 Allergies/[id number] Hospital [id number](SNOM 0388(RXNORM) Repository ED CT) Drug NO KNOWN [facility] Class/78456 ALLERGIES [facility] 1003(SNOMED Repository CT) ENCOUNTERS ENCOUNTERS ADMIT/DISCHARGE ACCOUNT NUMBER ADMITTING ENCOUNTER LOCATION SOURCE CLASS 11/04/2018/11/04/20 [id number] Emergency [address] ding:ED Repository 10/31/2018/10/31/20 [id number] Emergency [address] ding:ED Repository 10/26/2018/10/26/20 [id number] Emergency BBuilding:MILADIS Kumar [address] [place] [address] Repository 10/26/2018/10/26/20 [id number] Emergency [address] ding:ED Repository 10/23/2018/10/23/20 [id number] Emergency [address] ding:ED Repository 09/29/2018/09/29/20 [id number] Emergency [facility] ding:ED Repository 09/16/2018 [id number] Ambulatory [facility] ding:MFPLAB Repository 09/10/2018/09/11/20 [id number] Ambulatory [place] [address] [facility] [address] [place] Repository 09/06/2018/09/06/20 [id number] Emergency [place] ding:ED Repository 09/04/2018/09/05/20 [id number] Emergency [place] ding:ED Repository 08/29/2018/08/29/20 [id number] Emergency [place] ding:ED Repository 07/24/2018/07/26/20 [id number] Neyhart-McIn Inpatient [place] 18 tosh, Anna Encounter [facility] ding:WPRoom: Repository SR489Xrb: 1 07/23/2018/07/26/20 [id number] Ambulatory [place] 18 [facility] [place] Repository 07/16/2018/07/17/20 [id number] Ambulatory [place] 18 [facility] [place] Repository 07/11/2018/07/14/20 [id number] Ambulatory [place] 18 [facility] [place] Repository 07/10/2018/07/11/20 [id number] Ambulatory [place] 18 [facility] [place] Repository 07/03/2018/07/04/20 [id number] Ambulatory [place] 18 [facility] [place] Repository 06/25/2018/06/26/20 [id number] Ambulatory [place] 18 [facility] [place] Repository 06/16/2018/06/17/20 [id number] Ambulatory [place] 18 [facility] [place] Repository 06/02/2018/06/04/20 [id number] Ambulatory [place] 18 [facility] [place] Repository 06/02/2018/06/02/20 [id number] Ambulatory [place] 18 [facility] [place] Repository 05/22/2018/05/22/20 [id number] Ambulatory [place] 18 [facility] [place] Repository 05/22/2018/05/22/20 [id number] Ambulatory [place] 18 [facility] [place] Repository 05/06/2018/06/19 [id number] Ambulatory [place] 18 [facility] [place] Repository 04/22/2018/04/22/20 [id number] Ambulatory [place] 18 [facility] [place] Repository 04/22/2018/04/22/20 [id number] Ambulatory [place] 18 [facility] [place] Repository 04/08/2018/04/08/20 [id number] Ambulatory [place] 18 [facility] [place] Repository 03/17/2018/03/17/20 [id number] Emergency [place] 18 [facility] ding:ED Repository 03/11/2018/03/11/20 [id number] Ambulatory [place] 18 [facility] [place] Repository 02/27/2018/09/02/20 [id number] Ambulatory [place] 18 [facility] [place] Repository 02/14/2018/02/15/20 [id number] Ambulatory [place] [address] [facility] [place] Repository 02/14/2018/02/15/20 [id number] Ambulatory [address] [place] Repository 01/17/2018/09/02/20 [id number] Ambulatory [place] [address] [facility] [place] Repository 01/17/2018/01/18/20 [id number] Ambulatory [address] [place] Repository 12/16/2017/12/17/19 [id number] Ambulatory [place] [address] [facility] [place] Repository 12/12/2017/12/13/19 [id number] Ambulatory [address] [place] Repository PAYERS PAYERS ENCOUNTER GUARANTOR PAYER SUBSCRIBER SOURCE 11/04/2018 ISABELLA M Primary [place] [id number] Insurance:ANTHEMPolic YKISDOB: [facility] y Number: [id number] [id number] Repository [address]Fij: 330) Date:9554-43-43RT [phone] () [id number], [place] [address]IE: 11/04/2018 Secondary ISABELLA M [place] Insurance:PARAMOUNT DENSMOREDOB: Community [id number] Hospital Number: Repository [id number] Date:6007-39-31[address], [place] [address]CO: 11/04/2018 Tertiary NOT GIVENUNK [place] Insurance:SELF PAY [facility] Hospital Number: Effective Repository Date:2018-11-04 10/31/2018 [facility] PARK A [place] [id number] Insurance:ANTHEMPolic SLYKHUISDOB: Community [place] y Number: [id number] [id number] Repository [address]Meq: 330) Date:9585-31-10KO [phone] () 573652T[place]ENCF, [place] [address]LF: 10/31/2018 Secondary [facility] Mil[place] Insurance:PARAMOUNT DENSMOREDOB: Community ADVANTAGE MCDPolicy [id number] Hospital Number: Repository [id number] Date:0571-94-29LW [address] [place] [address]EK: 10/31/2018 Tertiary NOT GIVENUNK [place] Insurance:SELF PAY [facility] Hospital Number: Effective Repository Date:2018-10-31 10/26/2018 [facility] DENSMOREDOB: Insurance:ANTHEM BLUE DENSMOREDOB: Foundation [place] [facility] [id number] Repository 1/2 [place] Number: 11/19 [place], [place] [id number] [place], [place] [address]Fje: (514) Date:2017-06-01 79504Njh: () 5688-07-45Hyjn [id number] Name:[address]OX ()Tel: [phone]) [phone], [place] 000-0000 () [address]UD: 10/26/2018 [facility] Insurance:PARAMOUNT DENSMOREDOB: Foundation [facility] [id number] Repository Number: 12 [place] [id number] [place], [place] Date:2018-10-26 [address]Mvu: [phone]) [id number] [phone] Name:[address] ()Tel: ([phone]) [place], [place] 000-0000 () [id number]: 10/26/2018 [facility] Primary PARK A [place] [id number] 1/2 Insurance:ANTHEMPolic SLYKHUISDOB: Community [place] y Number: [id number], [place] [id number] Repository [address]Cbi: 330) Date:3436-71-17WY [phone] () [address] [place] [address]OX: 10/26/2018 Secondary [facility] Mil[place] Insurance:PARAMOUNT DENSMOREDOB: Community ADVANTAGE MCDPolicy [id number] Hospital Number: Repository [id number] Date:3642-90-44[address], [place] [address]RC: 10/26/2018 Tertiary NOT GIVENUNK [place] Insurance:SELF PAY [facility] Hospital Number: Effective Repository Date:2018-10-26 10/23/2018 [facility] Primary [place] [id number] 1/2 Insurance:ANTHEMPolic SLYKHUISDOB: Community [place] y Number: [id number], [place] [id number] Repository [address]Wik: (330) Date:7458-84-46AI [phone] () [address] [place] [address]ZP: 10/23/2018 Secondary [facility] Mil[place] Insurance:PARAMOUNT DENSMOREDOB: Community ADVANTAGE MCDPolicy [id number] Hospital Number: Repository [id number] Date:0826-55-43UQ [address] [place] [address]QZ: 10/23/2018 Tertiary NOT GIVENUNK [place] Insurance:SELF PAY [facility] Hospital Number: Effective Repository Date:2018-10-23 09/29/2018 [facility] Primary [facility] [place] [id number] 1/2 Insurance:PARAMOUNT DENSMOREDOB: Community [place] ADVANTAGE [facility] [id number], [place] Number: Repository [address]Chx: 330 [id number] [phone] () Date:8108-98-70[address], [place] [address]HL: 09/29/2018 Secondary [place] Insurance:ANTHEMPolic SLYKHUISDOB: Community y Number: [id number] [id number] Repository Date:9993-75-19KB [address] [place] [address]XQ: 09/29/2018 Tertiary NOT GIVENUNK [place] Insurance:SELF PAY [facility] Number: Effective Repository Date:2018-09-29 09/16/2018 [facility] Primary [place] [id number] 1/2 Insurance:ANTHEMPolic SLYKHUISDOB: Community [facility] y Number: [id number], [place] [id number] Repository [address]Pwf: (330) Date:2243-16-15PS [phone] () [address] [place] [address] [place] [address]KL: 09/16/2018 Secondary [facility] Mil[place] Insurance:PARAMOUNT DENSMOREDOB: Community [facility] [id number] Hospital Number: Repository [id number] Date:6150-84-30PI [address], [place] [address]NX: 09/16/2018 Tertiary NOT GIVENUNK [place] Insurance:SELF PAY [facility] Number: Effective Repository Date:2018-09-16 09/06/2018 [facility] Primary [place] [id number] 1/2 Insurance:ANTHEMPolic SLYKHUISDOB: [facility] Number: [id number], [place] [id number] Repository [address]Zxq: (330) Date:4922-21-54PN [phone] () [place]68[address]LVXKIZU, [place] [address]WU: 09/06/2018 Secondary ISABELLA M [place] Insurance:PARAMOUNT DENSMOREDOB: Community ADVANTAGE [facility] [id number] Hospital Number: Repository [id number] Date:4949-48-69OB [address] [place] [address]WI: 09/06/2018 Tertiary NOT GIVENUNK [place] Insurance:SELF PAY [facility] Hospital Number: Effective Repository Date:2018-09-06 09/04/2018 [facility] Primary [place] [id number] 1/2 Insurance:ANTHEMPolic SLYKHUISDOB: Community [place] y Number: [id number], [place] [id number] Repository [address]Icw: 330) Date:7923-84-80FH [phone] () [address] [place] [address]YX: 09/04/2018 Secondary [facility] [place] Insurance:PARAMOUNT DENSMOREDOB: Community ADVANTAGE [facility] [id number] Hospital Number: Repository [id number] Date:6513-05-85HW [address], [place] [address]HI: 09/04/2018 Tertiary NOT GIVENUNK [place] Insurance:SELF PAY [facility] Number: Effective Repository Date:2018-09-04 08/29/2018 [facility] Primary [place] [id number] 1/2 Insurance:ANTHEMPolic SLYKHUISDOB: Community [place] y Number: [id number], [place] [id number] Repository [address]Mim: 330) Date:9509-12-48PI [phone] () [id number] [place] [address]EK: 08/29/2018 Secondary [facility] Mil[place] Insurance:PARAMOUNT DENSMOREDOB: Community ADVANTAGE [facility] [id number] Hospital Number: Repository [id number] Date:1037-09-71RD [address], [place] [address]PM: 08/29/2018 Tertiary NOT GIVENUNK [place] Insurance:SELF PAY [facility] Number: Effective Repository Date:2018-08-29 07/24/2018 [facility] Primary [place] [id number] Insurance:ANTHEMPolic SLYKHUISDOB: Community JANETTE KINA y Number: [id number], [place] [id number] Repository [address]Hrn: (330) Date:3103-12-71UV [phone] () [address]386[address]GCNTYKF, [place] [address]XE: 07/24/2018 Secondary [facility] [place] Insurance:PARAMOUNT DENSMOREDOB: Community [facility] [id number] Hospital Number: Repository [id number] Date:3697-57-47YK [address], [place] [address]CH: 07/24/2018 Tertiary NOT GIVENUNK [place] Insurance:SELF PAY [facility] Number: Effective Repository Date:2018-07-24 03/17/2018 [facility] Primary [address] [id number] Insurance:ANTHEMPolic SLYKHUISDOB: Community JANETTE KINA y Number: [id number], [place] [id number] Repository [address]Mwj: (330) Date:5453-35-31KS [phone] () [address]238[address]REIUXZI, [place] [address]XC: 03/17/2018 Secondary NOT GIVENUNK [place] Insurance:SELF PAY [facility] Hospital Number: Effective Repository Date:2018-03-17
== END 2018-10-31 09:30 | disposition home or self-care (01) ==
PROVIDERS: Emergency Provider Emergency Medicine; Family Provider Family Medicine; PCP Family Medicine
DX: R51 Headache (principal); R10.9 Unspecified abdominal pain; F41.9 Anxiety disorder, unspecified; Z79.899 Other long term (current) drug therapy
CPT/HCPCS: 81001; 81025; 96361; 96374; 96375; 99284; J7030

== ENCOUNTER 2018-11-04 19:24 | Emergency (ER) | payer BC, MEDICAID, SELFPAY ==
[2018-11-04 19:25] VITALS: BP 113/72; PULSE 79; RESP 18; TEMP 36.2; O2SAT 98; BMI 21.6
--- NOTE | 2018-11-04 19:30 | ED.RN ---
RN CALLED FOR EKG, PULLED OLD EKGS FOR
--- NOTE | 2018-11-04 19:33 | EKG12_ITS ---
Test Reason : CP Blood Pressure : / mmHG Vent. Rate : 067 BPM Atrial Rate : 067 BPM P-R Int : 144 ms QRS Dur : 092 ms QT Int : 410 ms P-R-T Axes : 039 084 054 degrees QTc Int : 433 ms Normal sinus rhythm Normal ECG Confirmed by SILVIO JOHNSON MD ([id number]), multimedia editor ANAHI COWAN ([id number]) on 11/07/2018 1:47:40 PM Referred By: HUGO Confirmed By:SILVIO JOHNSON MD
[2018-11-04 20:03] LABS: Absolute Lymphocyte Count 2.09 X10^3/ul (0.83-4.51); Absolute Neutrophil Count 5.1 X10^3/uL (2.0-7.7); Basophil# 0.03 X10^3/uL; Basophil% 0.4 % (0-1); Eosinophil# 0.26 X10^3/uL; Eosinophils% 3.2 % (0-5); Hematocrit 40.8 % (37-47); Hemoglobin 13.5 g/dl (12.0-15.0); Lymphocyte # 2.09 X10^3/ul (4.0); Lymphocyte % 25.6 % (19-41); Mean Corp Hgb Conc 33.1 g/gl (32-36); Mean Corpuscular Volume 87.6 fL (81-99); Mean Platelet Vol. 10.2 fl (6.2-12.0); Monocyte# 0.63 X10^3/uL; Monocyte% 7.7 % (0-10); Neutrophil # 5.14 X10^3/uL (2.7-7.7); Platelet Count 283 K/mm3 (150-450); RBC Distribution Width CV 12.3 % (11.6-14.6); RBC Distribution Width SD 39.4 fl (35.1-43.9); Red Blood Count 4.66 M/mm3 (4.2-5.4); White Blood Count 8.2 K/mm3 (4.4-11.0)
[2018-11-04 20:04] LABS: POSITIVE COUNT NO; POSITIVE DIFFERENTIAL NO; POSITIVE MORPHOLOGY NO
[2018-11-04 20:17] VITALS: PULSE 75; RESP 15; O2SAT 99
[2018-11-04 20:19] LABS: Anion Gap 12 (5-15); BUN 13 mg/dL (7-18); Calcium,Total 9.2 mg/dL (8.5-10.1); Chloride 107 mmol/L (98-107); Creatinine, Serum 0.62 mg/dL (0.55-1.02); EST Glomerular Filtration Rate 129 mL/min (>60); Est Glom Filt Rate - Afr Amer 157 mL/min (>60); Estimated Creatinine Clearance 103.97 ml/min; Glucose 89 mg/dL (74-106); Potassium 3.3 mmol/L (3.5-5.1); Sodium Level 141 mmol/L (136-145)
--- NOTE | 2018-11-04 20:25 | RAD_ITS ---
STUDY: X-RAY CHEST REASON FOR EXAM: Female, 18 years old. Chest pain. TECHNIQUE: Single view chest. COMPARISON: 10/23/2018. FINDINGS: The lungs are clear and expanded. There is no demonstrated pleural abnormality. Normal size heart. Normal mediastinum and henrry. Normal visualized pulmonary arteries. Normal visualized aortic arch and descending thoracic aorta. Normal visualized thoracic spine. Normal visualized ribs, clavicles, and shoulders. There is no demonstrated abnormality of the visualized soft tissue structures of the upper abdomen. RAD/Chest 1 View (Portable) IMPRESSION: Normal x-ray examination of the chest. Electronically Signed: Lupe Ponce MD at 20:57 EST Tel , Service support ,
[2018-11-04 21:15] LABS: Pregnancy, Serum, hCG Quali. NEGATIVE Negative (0-9 Nonpreg)
[2018-11-04 21:28] LABS: D-Dimer Quantitative (DVT/PE) 0.27 FEU/ug/m (0.27-0.49)
--- NOTE | 2018-11-04 21:55 | ED.DCSUM_ITS ---
- ER Visit Summary Date of Service: 11/04/18 Chief Complaint: Chest pain History of Present Illness: The patient is a 18 F with history of anxiety. She has been having episodes of chest pain, shortness of breath, dizziness, and anxiety. These episodes have been increasing in frequency and duration. Denies episode lasted several hours and the chest pressure was more severe. Patient did start Zoloft a couple days ago and does understand it will take a couple weeks before this is effective. Physical Examination: Vital signs unremarkable. Patient sitting upright in bed no acute distress. Head neck examination unremarkable. Heart is regular rate and rhythm. Lung sounds are clear. Abdomen is soft nontender. Neuro exam is unremarkable. Test Results: EKG is sinus at 67 with no sign of acute ischemia. Portable chest x-ray is unremarkable. CBC and chemistry studies are significant only for potassium 3.3. Troponin is less than 0.015. D-dimer 0.27. test negative. Emergency Department Course and Treatment: By the time patient was seen for exam, her symptoms had abated. She does describe these episodes becoming more frequent and longer in duration. She will be given low-dose Ativan to try when these episodes are severe until her Zoloft is more effective. Treatment Plan: [] Disposition: Discharge Impression: Panic attack This note was generated with [employer] dictation software. It may contain incorrect words, spelling, and punctuation that were not noted in review of the chart prior to signing ED Disposition - Plan for ED Patient: Disposition: Home or Assisted Living Chief Complaint: Chest Pain Instructions: ED Panic Attack Prescriptions: Lorazepam [Ativan] 0.5 mg PO TID PRN #10 tablet PRN Reason: Anxiety Referrals: Arron Brandt MD [Primary Care Provider] - 1 Week
[2018-11-04] MEDS: LORazepam 0.5 MG Tablet PO (22:09)
[2018-11-04 22:13] VITALS: BP 116/69; PULSE 60; RESP 18; O2SAT 99
--- OUTSIDE RECORDS SUMMARY | 2019-02-06 06:25 | XMS RPT_ITS ---
:2000 Demographics Address [address] [place] [address] Preferred Language [facility]- Marital Status Unknown Rastafari Affiliation Unknown Race Ethnic Group Unknown Author Organization OHIP Support Name Relationship Address Phone FIVE GUYS Unavailable [address] + [place] [address] SHRUTI, MARCUS Unavailable [address] + [place] [address] SLYKHUIS, PARK Unavailable [address] + [place] [address] FIVE GUYS Unavailable [address] + [place] [address] SHRUTI, MARCUS Unavailable [address] + [place] [address] SLYKHUIS, PARK Unavailable [address] + [place] [address] FIVE GUYS Unavailable [address] + [place] [address] SHRUTI, MARCUS Unavailable [address] + [place] [address] SLYKHUIS, PARK Unavailable [address] + [place] [address] FIVE GUYS Unavailable [address] + [place] [address] SHRUTI, MARCUS Unavailable [address] + [place] [address] SLYKHUIS, PARK Unavailable [address] + [place] [address] FIVE GUYS Unavailable [address] + [place] [address] SHRUTI, MARCUS Unavailable [address] + [place] [address] SLYKHUIS, PARK Unavailable [address] + [place] [address] FIVE GUMARA Unavailable [address] + [place] [address] MARCUS BAHENA Unavailable [address] + [place] [address] SLYKHUIS, PARK Unavailable [address] + [place] [address] MARCUS BAHENA Unavailable [address] + [place] [address] SLYKHUIS, PARK Unavailable [address] + [place] [address] SERENE/VINNIE Unavailable [address] + [place] [address] MARCUS BAHENA Unavailable [address] + [place] [address] SLYKHUIS, PARK Unavailable [address] + [place] [address] SERENE/VINNIE Unavailable [address] + [place] [address] MARCUS BAHENA Unavailable [address] + [place] [address] SLYKHUIS, PARK Unavailable [address] + [place] [address] SERENE/VINNIE Unavailable [address] + [place] [address] MARCUS BAHENA Unavailable [address] + [place] [address] SLYKHUIS, PARK Unavailable [address] + [place] [address] SERENE/VINNIE Unavailable [address] + [place] [address] MARCUS BAHENA Unavailable [address] + [place] [address] SLYKHUIS, PARK Unavailable [address] + [place] [address] SERENE/VINNIE Unavailable [address] + [place] [address] Care Team Providers Name Role Phone SOTO, [...] Attending Unavailable SOTO, RUBA (CNM) Referring Unavailable [facility] DR[facility] MEMO LEWIS Attending Unavailable CIERA STONE MD Primary Care Unavailable Ciera Stone Primary Care Unavailable Lana Fulton Attending Unavailable Anna Fortune Admitting Unavailable Anna Fortune Attending Unavailable DEAN TAYLOR Primary Care Unavailable Anna Fortune Referring Unavailable Ciera Stone Primary Care Unavailable Anjali Mtz Attending Unavailable Ciera Stone Primary Care Unavailable Jovanni Perales Attending Unavailable Ciera Stone Primary Care Unavailable Murali Turcios Attending Unavailable Primay Care Physicia, No Primary Care Unavailable Lana Fulton Attending Unavailable Primay Care Physicia, No Primary Care Unavailable Cuate Christy Attending Unavailable Agusto Caballero Attending Unavailable Primay Care Physiccatarina, No Primary Care Unavailable DEAN TAYLOR Primary Care Unavailable Jose Miguel Richard Attending Unavailable Ciera Stone Primary Care Unavailable Cuate Christy Attending Unavailable Ciera Stone Attending Unavailable Ciera Stone Primary Care Unavailable PROBLEMS PROBLEMS DATE TYPE CONDITION / CODE ATTENDING STATUS SOURCE 12/08/2018 Unknown E87.6 - Ciera Stone Active [facility] E87.6(ICD-10) Hospital Repository 05/22/2018 Active Anemia NA Active [facility] complicating [place] , third Repository trimester / O99.013(ICD-10) 04/22/2018 Active 27 weeks gestation RUBA SOTO Active [facility] of / ([facility]) [place] Z3A.27(ICD-10) Repository 03/11/2018 Active 21 weeks gestation RUBA SOTO Active [facility] of / ([facility]) [place] Z3A.21(ICD-10) Repository 02/14/2018 Active Encounter for NA Active [facility] [place] screening, Repository unspecified / Z36.9(ICD-10) 02/14/2018 Active Encounter for RUBA SOTO Active [facility] supervision of ([facility]) [place] normal first Repository , second trimester / Z34.02(ICD-10) 02/14/2018 Active 17 weeks gestation RUBA SOTO Active [facility] of / ([facility]) [place] Z3A.17(ICD-10) Repository 12/16/2017 Active Encounter for RUBA SOTO Active [facility] supervision of ([facility]) [place] normal first Repository , first trimester / Z34.01(ICD-10) 01/17/2018 Active 13 weeks gestation RUBA SOTO Active [facility] of / ([facility]) [place] Z3A.13(ICD-10) Repository 12/12/2017 Active Unknown / NA Active [facility] UNK(Unknown) [place] Repository PROCEDURES PROCEDURES No Procedure Records FoundRESULTS RESULTS 12 LEAD ELECTROCARDIOGRAM Observed: 11/07/2018 Status: F Source: [place] 1:47 PM [facility] Cardiovascular Services [address] [place] [address] 12 Lead EKG 11/04/18 1935 MR#: [id number] Acct: [id number] Name: ISABELLA MACKAY Rep #: [id number] : 2000 18 From: Kal Deleon MD [...] ECG Confirmed by KAL DELEON MD ([id number]), director of industrial relations ANAHI COWAN (56) on 11/07/2018 1:47:40 PM Referred By: HUGO Confirmed By:KAL DELEON MD 11/07/18 1347 Date Kal Deleon MD CC: ED PHYSICIAN PROVIDER; Lana Fulton MD; Ciera Stone MD Signed EMERGENCY DEPARTMENT Observed: 11/05/2018 Status: F Source: [place] SUMMARY 1:57 AM [facility] REPOSITORY [facility] Medical Records Department [address] [place] [address] Emergency Department Summary 11/04/18 2155 MR#: [id number] Acct: [id number] Name: ISABELLA MACKAY Rep #: [id number] : 2000 18 From: Lana Fulton MD [...] Panic attack This note was generated with Lyft dictation software. It may contain incorrect words, [...] your Primary Care Provider. Call [facility] ([phone]) or report to the closest Emergency Room. Call 911 if necessary. 11/05/18 0157 <Electronically signed by Lana Fulton MD> Date Lana Fulton MD Cosigner Signature (If Indicated): Date CC: Ciera Stone MD DISCHARGE INSTRUCTION Observed: 11/04/2018 Status: F Source: [place] 9:56 PM [facility] REPOSITORY [facility] Medical Records Department [address] [place] [address] Discharge Instruction 11/04/182154 MR#: [id number] Acct: [id number] Name: ISABELLA MACKAY Rep #: [id number] : 2000 18 From: Lana Fulton MD [...] your Primary Care Provider. Call [facility] ([phone]) or report to the closest Emergency Room. Call 911 if necessary. 11/04/182155 <Electronically signed by Lana Fulton MD> Date Lana Fulton MD Cosigner Signature (If Indicated): Date CC: Ciera Stone MD CBC W/DIFF, AUTOMATED Collected: 11/04/2018 Status: F Source: [place] 7:40 PM [facility] REPOSITORY TYPE CODE TESTS RESULT OUT OF [...] Lymph 2.09 Performed By: #### L100.0100 #### [facility] [address] [place], [place], [address] BASIC METABOLIC Collected: 11/04/2018 Status: F Source: [place] PROFILE (BMP) 7:40 PM [facility] REPOSITORY TYPE CODE TESTS RESULT OUT OF [...] 12 Performed By: #### L500.2500, L501.4010 #### [facility] [address] [place], [place], [id number] TROPONIN-I Collected: 11/04/2018 Status: F Source: [place] 7:40 PM [facility] REPOSITORY TYPE CODE TESTS RESULT OUT OF RANGE REFERENCE UNITS LAB L501.4010 <0.045 ng/mL Normal < 0.015 TROPONIN-I Result Comment: TROPONIN-I EXPECTED VALUES <0.045 Negative 0.045 - 0.590 Consistent with Cardiac Damage > OR = 0.600 Critical Value Not every elevated troponin is indicative of MS. These values should be used with clinical judgement in examining the patient's clinical picture for diagnosis. To establish a diagnosis of MS versus myocardial injury, there must be a demonstrated rise and/or fall in the troponin values, in addition to ischemic symptoms, EKG changes, new regional wall motion abnormality, and/or angiographical evidence. PLEASE NOTE: REFERENCE RANGES EDITED 18 Performed By: #### L500.2500, L501.4010 #### [facility] [address] [place], [place], [address] ,SERUM,HCG QUALI. Collected: Status: F Source: [place] 11/04/2018 7:40 PM [facility] REPOSITORY TYPE CODE TESTS RESULT OUT OF REFERENCE UNITS RANGE LAB L700.6700 =>Qualitative mIU/mL Normal HCG Qual < 1 triggr LAB L700.7000 0-9 Nonpreg Negative Normal HCGSQUAL NEGATIVE Performed By: #### L700.6800 #### [facility] [address] [place], [address] D-DIMER QUANTITATIVE Collected: 11/04/2018 Status: F Source: [place] (DVT/PE) 7:40 PM [facility] REPOSITORY TYPE CODE TESTS RESULT OUT OF RANGE REFERENCE UNITS LAB L300.8000 0.27-0.49 FEU/ug/m Normal D-DIMER 0.27 QUANT Result Comment: NORMAL D-Dimer level (<0.50) indicates no DVT or PE. Performed By: #### L300.8000 #### [facility] [address] [place], [address] CHEST 1 VIEW Observed: 11/04/2018 Status: F Source: [place] (PORTABLE) 7:33 PM [facility] REPOSITORY [facility] Imaging Services [address] [place] [address] Chest 1 View (Portable) MR#: [id number] Acct: [id number] Name: ISABELLA MACKAY Rep #: [id number] : 2000 F 18 From: Lupe Ponce MD PCP: Ciera Stone MD Status: REG ER Study: Chest 1 View (Portable) Date of Exam: 11/04/18 Exam# [id number] Ordering Dr: Lana Fulton MD STUDY: X-RAY [...] CC: Lana Fulton MD; Ciera Stone MD Cabinet Maker: Signed DISCHARGE INSTRUCTION Observed: 10/31/2018 Status: F Source: [place] 9:12 AM [facility] REPOSITORY [facility] Medical Records Department [address] [place] [address] Discharge Instruction 10/31/18909 MR#: [id number] Acct: [id number] Name: ISABELLA MACKAY Rep #: [id number] : 2000 From: Cuate Christy MD PCP: Ciera Stone MD Status: REG ER ED Disposition - Plan for ED Patient: Disposition: Home or Assisted Living Chief Complaint: Headache Instructions: ED Cephalgia Unspecified Prescriptions: Naproxen [Naprosyn] 500 mg PO BID PRN #20 tablet Referrals: Ciera Stone MD [Primary Care Provider] - Additional Instructions: Your prescription was electronically transferred to [facility] pharmacy What to do if you have Problems For any increased pain, shortness of breath, bleeding, nausea or vomiting, chest pain, or any unexpected problems, contact your Primary Care Provider. Call [facility] ([phone]) or report to the closest Emergency Room. Call 911 if necessary. 10/31/18911 <Electronically signed by Cuate Christy MD> Date Cuate Christy MD Cosigner Signature (If Indicated): Date CC: Ciera Stone MD EMERGENCY DEPARTMENT Observed: 10/31/2018 Status: F Source: [place] SUMMARY 9:11 AM [facility] REPOSITORY [facility] Medical Records Department [address] [place] [address] Emergency Department Summary 10/31/18 0811 MR#: [id number] Acct: [id number] Name: ISABELLA MACKAY Rep #: [id number] : 2000 18 From: Cuate Christy MD [...] flank pain This note was generated with Lyft dictation software. It may contain incorrect words, [...] problems, contact your Primary Care Provider. Call [facility] Mobile Registry ([phone]) or report to the closest Emergency Room. Call 911 if necessary. 10/31/18 0911 <Electronically signed by Cuate Christy MD> Date Cuate Christy MD Cosigner Signature (If Indicated): Date CC: Ciera Stone MD URINALYSIS, COMPLETE Collected: 10/31/2018 Status: F Source: [place] 8:30 AM [facility] REPOSITORY Order Comment: Order Date: 10/31/18 How [...] URINE RARE Performed By: #### L400.0001 #### [facility] [address] [place], [address] ,URINE Collected: 10/31/2018 Status: F Source: [place] 8:30 AM [facility] REPOSITORY Order Comment: Order Date: 10/31/18 TYPE CODE TESTS RESULT OUT OF REFERENCE UNITS RANGE LAB L400.8000 Negative Normal HCGUQUAL Negative Result Comment: Very dilute urine specimens, as indicated by a low specific gravity, may not contain sales representative metals levels of hCG. If is still suspected, a first morning urine specimen should be collected 48 hours later and tested. Performed By: #### L400.7600 #### [facility] [address] [place], [address] EMERGENCY DEPARTMENT Observed: 10/26/2018 Status: F Source: [place] SUMMARY 11:45 PM [facility] REPOSITORY [facility] Medical Records Department [address] [facility] [place] [address] Emergency Department Summary 10/26/18 1650 MR#: [id number] Acct: [id number] Name: ISABELLA MCAKAY Rep #: [id number] : 2000 18 From: Anjali Mtz MD [...] skin lesions This note was generated with Lyft dictation software. It may contain incorrect words, [...] your Primary Care Provider. Call [facility] ([phone]) or report to the closest Emergency Room. Call 911 if necessary. 10/26/18 1320 <Electronically signed by Anjali Mtz MD> Date Anjali Mtz MD Cosigner Signature (If Indicated): Date CC: Ciera Stone MD UA Collected: 10/26/2018 Status: F Source: [facility] 10:53 PM [facility] REPOSITORY TYPE CODE TESTS RESULT OUT [...] Performed By: #### UA, PREGU, UAMICAO #### [address] [address] PREGU Collected: 10/26/2018 Status: F Source: [facility] 10:53 [facility] REPOSITORY TYPE CODE TESTS RESULT OUT OF RANGE REFERENCE UNITS LAB PREGU(LOIN C) Test Negative Urine LAB PRUG1(LOIN C) Unknown test HCG not (u) int detected. Performed By: #### UA, PREGU, UAMICAO #### [address] [address] .URINALYSIS MICROSCOPIC Collected: 10/26/2018 Status: F Source: [place] ([place]) 10:53 PM [facility] REPOSITORY TYPE CODE TESTS RESULT OUT OF RANGE REFERENCE UNITS LAB WBCUA(LOIN None Seen /hpf C) Unknown UA WBC 5-10 LAB RBCUA(LOIN None Seen /hpf C) UA RBC None Seen LAB EPIUA(LOIN None Seen /hpf C) Unknown UA Squam Epithelial 5-10 LAB AMOUA(LOIN /hpf C) UA Amorphus 2+ Performed By: #### UA, PREGU, UAMICAO #### [address] [place], [place] [address] DISCHARGE INSTRUCTION Observed: 10/26/2018 Status: F Source: [place] 4:53 PM [facility]OSP[facility] REPOS[facility]ORY [facility] Medical Records Department [address] [place] [address] Discharge Instruction 10/26/18 1653 MR#: [id number] Acct: [id number] Name: ISABELLA MACKAY Rep #: [id number] : 2000 18 From: Anjali Mtz MD [...] your Primary Care Provider. Call [facility] ([phone]) or report to the closest Emergency Room. Call 911 if necessary. 10/26/181652 <Electronically signed by Anjali Mtz MD> Date Anjali Mtz MD Cosigner Signature (If Indicated): Date CC: Ciera Stone MD 12 LEAD ELECTROCARDIOGRAM Observed: 10/24/2018 Status: F Source: [place] 2:43 PM [facility] REPOSITORY [facility] Cardiovascular Services [address] [place] [address] 12 Lead EKG 10/23/18 0119 MR#: [id number] Acct: [id number] Name: ISABELLA MACKAY Rep #: [id number] : 2000 18 From: Kal Deleon MD [...] ECG Confirmed by KAL DELEON MD ([id number]), director of industrial relations ANAHI COWAN (56) on 10/24/2018 2:42:47 PM Referred By: JENNIFFER Confirmed By:KAL DELEON MD 10/24/18 1442 Date Kal Deleon MD CC: Jovanni Perales MD; Ciera Stone MD Signed EMERGENCY DEPARTMENT Observed: 10/23/2018 Status: F Source: [place] SUMMARY 2:50 AM [facility] Medical Records Department [address] [place] [address] Emergency Department Summary 10/23/18 0222 MR#: [id number] Acct: [id number] Name: ISABELLA MACKAY Rep #: [id number] : 2000 18 From: Jovanni Perales MD [...] wall pain This note was generated with Lyft dictation software. It may contain incorrect words, [...] your Primary Care Provider. Call [facility] ([phone]) or report to the closest Emergency Room. Call 911 if necessary. 10/23/18249 <Electronically signed by Jovanni Perales MD> Date Jovanni Perales MD Cosigner Signature (If Indicated): Date CC: Ciera Stone MD DISCHARGE INSTRUCTION Observed: 10/23/2018 Status: F Source: [place] 2:50 AM [facility] REPOSITORY [facility] Medical Records Department [address] [place] [address] Discharge Instruction 10/23/185 MR#: [id number] Acct: [id number] Name: ISABELLA MACKAY Rep #: [id number] : 2000 18 From: Jovanni Perales MD PCP: Ciera Stone MD Status: [facility] ER ED Disposition - Plan for [...] problems, contact your Primary Care Provider. Call [facility] Mobile Registry ([phone]) or report to the closest Emergency Room. Call 911 if necessary. 10/23/18 0250 <Electronically signed by Jovanni Perales MD> Date Jovanni Perales MD Cosigner Signature (If Indicated): Date CC: Ciera Stone MD CHEST PA AND LATERAL Observed: 10/23/2018 Status: F Source: [place] 12:58 AM [facility] REPOSITORY [facility] Imaging Services [address] [place] [address] Chest PA and Lateral MR#: [id number] Acct: [id number] Name: ISABELLA MACKAY Rep #: [id number] : 2000 F 18 From: Srinivas Mata PCP: Ciera Stone MD Status: [facility] ER Study: Chest PA and Lateral Date of Exam: 10/23/18 Exam# [id number] Ordering Dr: Jovanni Perales MD STUDY: X-RAY [...] CC: Jovanni Perales MD; Ciera Stone MD Cabinet Maker: Signed EMERGENCY DEPARTMENT Observed: 09/29/2018 Status: F Source: [place] SUMMARY 11:21 PM [facility] REPOSITORY [facility] Medical Records Department [address] [place] [address] Emergency Department Summary 09/29/18 2317 MR#: [id number] Acct: [id number] Name: ISABELLA MACKAY Rep #: [id number] : 2000 18 From: Murali Sanchez PCP: [...] 1. [place] This note was generated with Lyft dictation software. It may contain incorrect words, [...] your Primary Care Provider. Call [facility] ([phone]) or report to the closest Emergency Room. Call 911 if necessary. 09/29/18 7621 <Electronically signed by Murali Sanchez> Date Murali Sanchez Cosigner Signature (If Indicated): Date CC: Ciera Stone MD POTASSIUM Collected: 09/16/2018 Status: F Source: [place] 3:47 PM [facility] REPOSITORY TYPE CODE TESTS RESULT OUT OF RANGE REFERENCE UNITS LAB L501.5600 3.5-5.1 mmol/L Normal K 3.6 Performed By: #### L501.5600, L501.9520 #### [facility] [address] [place], [address] THYROID STIM HORMONE Collected: 09/16/2018 Status: F Source: [place] (TSH) 3:47 PM [facility] REPOSITORY TYPE CODE TESTS RESULT OUT OF RANGE REFERENCE UNITS LAB L501.9520 0.358-3.74 uIU/mL Normal TSH 1.21 Performed By: #### L501.5600, L501.9520 #### [facility] [address] [place], [address] PROGRESS Observed: 09/10/2018 Status: COMPLETED Source: [place] 3:28 PM [facility] REPOSITORY HNO ID: [id number] Author: Ruba Soto Service: (none) Author Type: Sinter Machine Operator Type: Progress Notes Filed: 09/10/2018 4:07 PM Note Text: VISIT Isabella Mackay is a 18 year old year old here for visit. Delivery Summary: of viable male 6lb 13oz. attended delivery. Yusuf Vacuum extraction. Recovery: Feeding: Bottle feeding problems: in hospital and stopped once home Menses since delivery: Not resumed Menstrual pattern prior to : Regular periods [address] since delivery: Resumed, condom use Depression: denies [...] external genitalia normal, normal Bartholin's glands, urethra, [place]'s glands, no vulvar lesions, no cervical lesions, [...] LEAD ELECTROCARDIOGRAM Observed: 09/09/2018 Status: F Source: [place] 11:07 AM [facility] REPOSITORY [facility] Cardiovascular Services [address] [place] [address] 12 Lead EKG 09/06/18 1346 MR#: [id number] Acct: [id number] Name: ISABELLA MACKAY Rep #: [id number] : 2000 18 From: Gurjit Gould MD [...] Normal ECG Confirmed by GURJIT GOULD MD ([id number]), director of industrial relations [place] GOYAL ([id number]) on 09/09/2018 11:07:24 AM Referred By: LARRY Confirmed By:GURJIT GOULD MD 09/09/18 1300 Date Gurjit Gould MD CC: No Primary Care Physician; Lana Fulton MD Signed 12 LEAD ELECTROCARDIOGRAM Observed: 09/08/2018 Status: F Source: [place] 12:47 PM [facility] REPOSITORY [facility] Cardiovascular Services [address] [place] [address] 12 Lead EKG 09/04/18 2312 MR#: [id number] Acct: [id number] Name: ISABELLA MACKAY Rep #: [id number] : 2000 18 From: Gurjit Gould MD [...] ECGs available Confirmed by GURJIT GOULD MD ([id number]), director of industrial relations [place] GOYAL ([id number]) on 09/08/2018 12:47:24 PM Referred By: ESTELITA Confirmed By:GURJIT GOULD MD 09/08/18 8619 Date Gurjit Gould MD CC: No Primary Care Physician; Cuate Christy MD Signed EMERGENCY DEPARTMENT Observed: 09/06/2018 Status: F Source: [place] SUMMARY 4:33 PM [facility] REPOSITORY [facility] Medical Records Department [address] [address] Emergency Department Summary 09/06/18 1359 MR#: [id number] Acct: [id number] Name: ISABELLA MACKAY Rep #: [id number] : 2000 18 From: Lana Fulton MD [...] chest pain This note was generated with Mixpoation software. It may contain incorrect words, spelling, [...] your Primary Care Provider. Call [facility] ([phone]) or report to the closest Emergency Room. Call 911 if necessary. 09/06/18 1633 <Electronically signed by Lana Fulton MD> Date Lana Fulton MD Cosigner Signature (If Indicated): Date CC: No Primary Care Physician DISCHARGE INSTRUCTION Observed: 09/06/2018 Status: F Source: [place] 2:54 PM [facility] REPOSITORY [facility] Medical Records Department [address] [place] [address] Discharge Instruction 09/06/181452 MR#: [id number] Acct: [id number] Name: ISABELLA MACKAY Rep #: [id number] : 2000 18 From: Lana Fulton MD [...] your Primary Care Provider. Call [facility] ([phone]) or report to the closest Emergency Room. Call 911 if necessary. 09/06/18 1454 <Electronically signed by Lana Fulton MD> Date Lana Fulton MD Cosigner Signature (If Indicated): Date CC: No Primary Care Physician CHEST 1 VIEW Observed: 09/06/2018 Status: F Source: [place] (PORTABLE) 1:34 PM [facility] REPOSITORY [facility] Imaging Services [address] [place] [address] Chest 1 View (Portable) MR#: [id number] Acct: [id number] Name: ISABELLA MACKAY Rep #: [id number] : 2000 F 18 From: Rachel Ha MD PCP: Care Physician, No Primary Status: REG ER Study: Chest 1 View (Portable) Date of Exam: 09/06/18 Exam# [id number] Ordering Dr: Lana Fulton MD STUDY: X-RAY [...] No Primary Care Physician; Lana Fulton MD Cabinet Maker: Signed CBC W/DIFF, AUTOMATED Collected: 09/06/2018 Status: F Source: [place] 10:20 AM [facility] REPOSITORY TYPE CODE TESTS RESULT OUT OF [...] Lymph 1.57 Performed By: #### L100.0100 #### [facility] [place], [address] D-DIMER QUANTITATIVE Collected: 09/06/2018 Status: F Source: [place] (DVT/PE) 10:20 AM [facility] REPOSITORY TYPE CODE TESTS RESULT OUT OF RANGE REFERENCE UNITS LAB L300.8000 0.27-0.49 FEU/ug/m Low D-DIMER < 0.27 QUANT Result Comment: NORMAL D-Dimer level (<0.50) indicates no DVT or PE. Performed By: #### L300.8000 #### [facility] [address] [place], [place], [id number] BASIC METABOLIC Collected: 09/06/2018 Status: F Source: [place] PROFILE (BMP) 10:20 AM [facility] REPOSITORY TYPE CODE TESTS RESULT OUT OF [...] Normal 7 Performed By: #### L500.2500 #### [facility] [address] [place], [place], [address] DISCHARGE INSTRUCTION Observed: 09/04/2018 Status: F Source: [place] 11:37 PM [facility] REPOS[facility]ORY [facility] Medical Records Department [address] [place] [address] Discharge Instruction 09/04/18 2336 MR#: [id number] Acct: [id number] Name: ISABELLA MACKAY Rep #: [id number] : 2000 18 From: Cuate Christy MD [...] problems, contact your Primary Care Provider. Call GoLive! Mobile Registry ([phone]) or report to the closest Emergency Room. Call 911 if necessary. 09/04/187 <Electronically signed by Cuate Christy MD> Date Cuate Christy MD Cosigner Signature (If Indicated): Date CC: No Primary Care Physician EMERGENCY DEPARTMENT Observed: 09/04/2018 Status: F Source: [place] SUMMARY 11:36 PM [facility] REPOSITORY [facility] Medical Records Department [address] [place] [address] Emergency Department Summary 09/04/18 2305 MR#: [id number] Acct: [id number] Name: ISABELLA MACKAY Rep #: [id number] : 2000 18 From: Cuate Christy MD [...] wall pain This note was generated with Lyft dictation software. It may contain incorrect words, [...] your Primary Care Provider. Call Doctors Registry ([phone]) or report to the closest Emergency Room. Call 911 if necessary. 09/04/18 6827 <Electronically signed by Cuate Christy MD> Date Cuate Christy MD Cosigner Signature (If Indicated): Date CC: No Primary Care Physician CHEST PA AND LATERAL Observed: 09/04/2018 Status: F Source: [place] 11:05 PM [facility] RE[facility]ORY [facility] Imaging Services [address] [place] [address] Chest PA and Lateral MR#: [id number] Acct: [id number] Name: ISABELLA MACKAY Rep #: [id number] : 2000 F 18 From: Emil Jeter MD PCP: Care Physician, No Primary Status: PRE ER Study: Chest PA and Lateral Date of Exam: 09/04/18 Exam# [id number] Ordering Dr: Cuate Christy MD STUDY: X-RAY [...] No Primary Care Physician; Cuate Christy MD Cabinet Maker: Signed EMERGENCY DEPARTMENT Observed: 08/29/2018 Status: F Source: [place] SUMMARY 7:49 AM [facility] REPOSITORY [facility] Medical Records Department [address] [place] [address] Emergency Department Summary 08/29/18 0052 MR#: [id number] Acct: [id number] Name: ISABELLA MACKAY Rep #: [id number] : 2000 18 From: Agusto Caballero MD [...] 5 weeks This note was generated with Lyft dictation software. It may contain incorrect words, spelling, and punctuation that were not noted in review of the chart prior to signing ED Disposition - Plan for ED Patient: Disposition: [facility] Chief Complaint: Lower Extremity Injury Diagnosis: Left [...] problems, contact your Primary Care Provider. Call GoLive! Mobile Registry ([phone]) or report to the closest Emergency Room. Call 911 if necessary. 08/29/18 0749 <Electronically signed by Agusto Caballero MD> Date Agusto Caballero MD Cosigner Signature (If Indicated): Date CC: No Primary Care Physician DISCHARGE INSTRUCTION Observed: 07/25/2018 Status: F Source: [place] 8:13 AM [facility] REPOSITORY [facility] Medical Records Department [address] [place] [address] Instructions for Home/Discharge Instructions 07/25/18812 MR#: [id number] Acct: [id number] Name: ISABELLA MACKAY Rep #: [id number] : 2000 From: Anna Zepeda MD PCP: [...] TAYLOR PROGRESS Observed: 07/24/2018 Status: COMPLETED Source: [place] 4:13 PM [facility] REPOSITORY [facility] ID: [id number] Author: Jacqueline Owens LPN Service: (none) Author Type: (none) Type: Progress Notes Filed: 07/24/2018 4:14 PM Note Text: Pt delivered via Vacuum assisted delivery at [facility] on 07/24/[address] Zepeda. See OB Outcome note. Jacqueline Owens LPN OPERATIVE REPORT Observed: 07/24/2018 Status: F Source: [place] 2:22 PM [facility] REPOSITORY [facility] Medical Records Department [address] [place] [address] Operative Report 07/24/18 1418 MR#: [id number] Acct: [id number] Name: ISABELLA MACKAY Rep #: [id number] : 2000 18 From: Anna Zepeda MD PCP: DEAN TAYLOR Status: ADM IN Location: BH136-9 Vaginal Delivery Maternal Presentation: Active Labor, Spontaneous [...] AND PHYSICAL Observed: 07/24/2018 Status: F Source: [place] EXAM 8:25 AM [facility] REPOSITORY [facility] Medical Records Department [address] [facility] [place] [address] History and Physical 07/24/18 0712 MR#: [id number] Acct: [id number] Name: ISABELLA MACKAY Rep #: [id number] : 2000 18 From: Swathi Julian DO PCP: DEAN TAYLOR Status: ADM IN Y Location: AK661-2 ADDENDUM by Swathi Julian DO on 07/24/18 [...] GeLabor LenAnesthesiDelivery Provider FOB Date ght [facility] a Location Labs: GBS negative, Rh pos, [...] F Source: [place] NO DIFF 3:40 AM [facility] REPOSITORY TYPE CODE TESTS RESULT OUT OF [...] MPV 10.1 Performed By: #### L100.0500 #### [facility] [address] [place], [address] TYPE AND SCREEN Collected: 07/24/2018 Status: F Source: [place] 3:40 AM [facility] REPOSITORY Order Comment: Reason for Type AND Screen/Red Cells: ROUTINE TYPE CODE TESTS RESULT OUT OF RANGE REFERENCE UNITS LAB B10.0800 O Normal BLOOD POSITIVE TYPE GEL Performed By: #### B101.7450 #### [facility] [address] [place], [address] ANTIBODY SCREEN, Collected: 07/24/2018 Status: F Source: [place] INDIRECT 3:40 AM [facility] REPOSITORY TYPE CODE TESTS RESULT OUT OF RANGE REFERENCE UNITS LAB B100.7000 Normal ANTIBODY NEGATIVE SCREEN Performed By: #### B100.7000 #### [facility] [address] [place], [address] HOSP Observed: 07/24/2018 Status: COMPLETED Source: [place] 12:00 AM [facility] REPOSITORY Patient Update (WOOB) ISABELLA MACKAY ([id number]) 2000 F Date Time Provider Department 07/24/18 ANNA ARAGON During your visit today, we recorded the following information about you: Jacqueline Owens LPN 07/24/2018 4:14 PM Signed Pt delivered via Vacuum assisted delivery at [facility] on 07/24/[address] Zepeda. See OB [...] 07/24/18 PROGRESS Observed: 07/11/2018 Status: COMPLETED Source: [place] 3:48 PM [facility] REPOSITORY HNO ID: [id number] Author: Robert Brunner Service: (none) Author Type: [...] STREP PCR Collected: 06/26/2018 Status: F Source: [place] 2:30 PM [facility] REPOSITORY TYPE CODE TESTS RESULT OUT OF REFERENCE UNITS RANGE LAB GBPCRT Negative for GROUP Group B B STREP PCR Streptococcus by PCR. Performed By: #### GBPCR #### [facility] [address] [id number] CNCNPATED Observed: 06/04/2018 Status: COMPLETED Source: [place] 12:00 AM [facility] REPOSITORY Education (WOOB) ISABELLA MACKAY ([id number]) 2000 F Date Time Provider Department 06/04/18 NURSE PNOB [facility] WSTR WOOB Reason for Visit: Class [4072] [...] Forceps 3. Vacuum extractor Physician presentations 1. OB-head of drama 2. 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 Mom's first hour 2. baby's first [...] 06/04/18 CBC Collected: 05/22/2018 Status: F Source: [place] 4:09 PM [facility] [place] REPOSITORY TYPE CODE TESTS RESULT OUT OF [...] Performed By: #### CBC, IRON, FERR #### [facility] [place] [address] [place], [place] [address] IRON AND TIBC Collected: 05/22/2018 Status: F Source: [place] 4:09 PM [facility] REPOSITORY TYPE CODE TESTS RESULT OUT OF REFERENCE UNITS RANGE LAB IRN 41-186 ug/dL Iron High 244 LAB TIBC 232-386 ug/dL TIBC High 422 LAB SAT 15-57 % Transferrin High Saturatn 58 Performed By: #### CBC, IRON, FERR #### [facility] [address] [place], [place] [address] FERRITIN Collected: 05/22/2018 Status: F Source: [place] 4:09 PM [facility] REPOSITORY TYPE CODE TESTS RESULT OUT OF REFERENCE UNITS RANGE LAB FERR 14.7-205.1 ng/mL Ferritin 26.6 Performed By: #### CBC, IRON, FERR #### [facility] [address] [place], [place] [address] CBC AND DIFFERENTIAL Collected: 04/22/2018 Status: F Source: [place] 4:44 PM [facility] REPOSITORY TYPE CODE TESTS RESULT OUT [...] Low Abs Lymph 0.99 LAB AMONO % [place]% 7.9 LAB AAMONO <0.87 k/uL Abs [place] 0.85 LAB AEOS % Eosin% 2.4 LAB AAEOS <0.46 k/uL Abs Eosin 0.26 LAB ABASO % Baso% 0.4 LAB AABASO <0.11 k/uL Abs Baso 0.04 LAB AUNRBC 0 /100 WBC NRBCs 0.0 LAB ABNRBC <0.01 k/uL Absolute nRBC <0.01 LAB DTYP DTYPE Auto Diff Performed By: #### CBCDIF #### [facility] [address] [place], [place] [address] 50G, 1HR GEST. Collected: 04/22/2018 Status: F Source: [place] GSCRN 4:44 PM [facility] REPOSITORY TYPE CODE TESTS RESULT OUT OF REFERENCE UNITS RANGE LAB GLUP 74-134 mg/dL Glucose 108 Screen, Preg Result Comment: [place] [employer] of Obstetricians and Gynecologists (Soha/Cedric) guidelines state a gestational diabetes mellitus positive screen is made, in women not previously diagnosed with overt diabetes, when the 1 hr plasma glucose level is equal to or above 140 mg/dL. The [facility] Underground Repairer and [facility] recommends a 135 mg/dL cutoff. Performed By: #### GLTGST #### [facility] [address] [place], [place] [address] EMERGENCY DEPARTMENT Observed: 03/17/2018 Status: F Source: [place] SUMMARY 7:21 AM [facility] REPOSITORY [facility] Medical Records Department [address] [place] [address] Emergency Department Summary 03/17/18 0418 MR#: [id number] Acct: [id number] Name: ISABELLA MACKAY Rep #: [id number] : 2000 18 From: Jose Miguel Richard [...] eat potassium rich foods. Follow-up with her special order jeweler in 1-2 days not improving. Return to the emergency department for any worsening symptoms. Disposition: To home in improved and stable condition. Impression: 1. Second trimester . 2. Hypokalemia. This note was generated with Lyft dictation software. It may contain incorrect words, [...] your Primary Care Provider. Call Doctors Registry ([phone]) or report to the closest Emergency Room. Call 911 if necessary. 03/17/18 0721 <Electronically signed by Jose Miguel Richard MD> Date Jose Miguel Richard MD Cosigner Signature (If Indicated): Date CC: DEAN TAYLOR CBC W/DIFF, AUTOMATED Collected: 03/17/2018 Status: F Source: [place] 3:22 AM [facility] REPOSITORY TYPE CODE TESTS RESULT OUT OF [...] Normal 2+ Performed By: #### L100.0100 #### [facility] [address] [place], [place], [address] BASIC METABOLIC Collected: 03/17/2018 Status: F Source: [place] PROFILE (BMP) 3:22 AM [facility] REPOSITORY TYPE CODE TESTS RESULT OUT OF [...] Normal 10 Performed By: #### L500.2500 #### [facility] [address] [place], [address] URINALYSIS, COMPLETE Collected: 03/17/2018 Status: F Source: [place] 3:20 AM [facility] REPOSITORY Order Comment: How was Urine Obtained? [...] URINE SEEN Performed By: #### L400.0001 #### [facility] [address] [place], [address] PROGRESS Observed: 02/28/2018 Status: COMPLETED Source: [place] 11:21 AM [facility] [place] REPOSITORY HNO ID: [id number] Author: Robert Brunner Service: (none) Author Type: [...] indicated CBC Collected: 02/14/2018 Status: F Source: [place] 10:30 AM [facility] REPOSITORY TYPE CODE TESTS RESULT OUT [...] #### CBC, HBSAG, HIV12C, RUBIGG, SYPHGX #### [facility] [address] [id number] HEPATITIS B SURF. AG Collected: 02/14/2018 Status: F Source: [place] 10:30 AM [facility] REPOSITORY TYPE CODE TESTS RESULT OUT OF REFERENCE UNITS RANGE LAB HBSAG Negative Hepatitis B Negative Surf. Ag Performed By: #### CBC, HBSAG, HIV12C, RUBIGG, SYPHGX #### [facility] [place] [address] [address] HIV 12 COMBO (AG/AB) Collected: 02/14/2018 Status: F Source: [place] 10:30 AM [facility] REPOSITORY TYPE CODE TESTS RESULT OUT OF REFERENCE UNITS RANGE LAB HVAGAB Non Reactive HIV Non Reactive 12 Ag/Ab Result Comment: (NOTE) HIV Information: [place] Rev. Code 3701.243(E): This information has been [...] #### CBC, HBSAG, HIV12C, RUBIGG, SYPHGX #### [place] [address] [place] [address] RUBELLA IGG ANTIBODY Collected: 02/14/2018 Status: F Source: [place] 10:30 AM [facility] REPOSITORY TYPE CODE TESTS RESULT OUT [...] #### CBC, HBSAG, HIV12C, RUBIGG, SYPHGX #### [address] [address] [place] [address] SYPHILIS IGG WITH Collected: 02/14/2018 Status: F Source: [facility] 10:30 AM [facility] REPOSITORY TYPE CODE TESTS RESULT OUT [...] #### CBC, HBSAG, HIV12C, RUBIGG, SYPHGX #### [address] [place] [address] [place] [address] TYPE AND SCR,PRENATL Collected: 02/14/2018 Status: F Source: [place] 10:30 AM [facility] REPOSITORY TYPE CODE TESTS RESULT OUT OF REFERENCE UNITS RANGE LAB %ABR O ABO/RH(D) POSITIVE LAB % Antibody NEG Screen Performed By: #### TSPN #### [facility] [address] [place], [place] [address] PROGRESS Observed: 01/17/2018 Status: COMPLETED Source: [place] 1:00 PM [facility] REPOSITORY HNO ID: [id number] Author: Roebrt Brunner Service: (none) Author Type: Physician Type: [...] TOXICOLOGY SCREEN,UR Collected: 12/16/2017 Status: F Source: [place] 2:59 PM [facility] REPOSITORY TYPE CODE TESTS RESULT OUT [...] on the same specimen through Client Services ([phone]) if contacted within 48 hours of initial testing. These tests were developed and their performance characteristics determined by [facility]'s [facility] [place] (RT PLMS). They have not been cleared or a pproved by the FDA. [facility] is regulated under CLIA as qualified to perform high complexity testing. These tests are used for clinical purposes. They should not be regarded as investigational or for research. 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 Patient BMI over 30? No Marital Status:Committed relationship Partner: Name: Yusuf Hall Age: 19 Occupation: [employer] Gender: male History of STDs: None PAST MEDICAL HISTORY Diagnosis Date - Anemia - Pneumonia age 4 No past surgical history on file. 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 #:[id number] TOX SCREEN ROUT UR [SQUTOX2] Order #: [id number]. #:[id number] NUCHAL TRANSLUCENCY WHI [5149680] Order #: [id number]: 1 Prescriptions as of 12/16/2017 Sig: VITAMIN,CALCIUM,MINE* [...] GC/CHLAMYDIA AMPLIF Collected: 12/16/2017 Status: F Source: [place] 4:47 AM [facility] REPOSITORY TYPE CODE TESTS RESULT OUT OF REFERENCE UNITS RANGE LAB GCCTSR GC/Chlam Amp [facility] Source LAB GCAMPL GC Negative Amplification for Neisseria gonorrhoeae by amplification. LAB CLAMPL Chlamydia Negative Amplif for Chlamydia trachomatis by amplification. Performed By: #### GCCT #### [facility] [address] [place], [place] [address] Observed: 12/16/2017 Status: F Source: [place] URINE CULTURE 1:30 AM [facility] REPOSITORY Sp. Request/Comment: - Specimen received in preservative Culture Result - 50,000 - <100,000 CFU/ml Normal urogenital marbella Performed By: #### URCUL #### [facility] [address] [place], [place] [address] CNNURSE Observed: 12/12/2017 Status: COMPLETED Source: [place] 3:30 PM [facility] REPOSITORY Nurse Visit (WOOB) ISABELLA MACKAY ([id number]) 2000 F Date Time Provider Department 12/12/17 3:30 PM NURSE PNOB [facility] WSTR WOOB During your visit today, we recorded the following information about you: Last Period 10/15/17 Estevan Page RN 12/12/2017 3:59 PM Signed SEQUENTIAL SCREENINGS The [facility] offers sequential screenings for women who [...] It will require an appointment with our chemical lab technician. This is not an ultrasound performed [...] the above symptoms, contact our office at [phone] and ask to speak with a nurse. After hours, you can call doctors registry at [phone] OR call [facility] at [phone] and ask to have the doctor motion picture projectionist apprentice paged. If you consider this an emergency, [...] treatment is particularly effective in young patients-the [facility] Cord Blood Bank reports a 70 percent [...] issues. What do the experts say? The [place] [employer] encourages philanthropic blood banking [...] baby needs at the moment. The nurse, motor pool clerk, or physician will then label the samples, [...] AHEAD OF TIME! Public cord-blood diez--DONATION: [employer] [phone] [facility]'s Placental Blood Program, [facility] Umbilical Cord Blood Bank, Private cord-blood diez--SAVING FOR YOUR OWN USE: [employer], (I think this is the least expensive) [employer] [phone] [employer], (277) [employer] [place] Cord Blood Bank, (611) 700-CORD Cells, [phone]-BABY [place] [employer], Cord Blood Registry, (880) [facility], An Internet search may provide you with [...] instructions from your clinician: SEQUENTIAL SCREENINGS The [facility] offers sequential screenings for women who [...] It will require an appointment with our chemical lab technician. This is not an ultrasound performed [...] the above symptoms, contact our office at [phone] and ask to speak with a nurse. After hours, you can call doctors registry at [phone] OR call [facility] at [phone] and ask to have the doctor motion picture projectionist apprentice paged. If you consider this an emergency, [...] is particularly effective in young patients- the [facility] Cord Blood [facility] reports a 70 percent [...] issues. What do the experts say? The [place] [employer] encourages philanthropic blood banking [...] baby needs at the moment. The nurse, motor pool clerk, or physician will then label the samples, [...] AHEAD OF TIME! Public cord-blood diez--DONATION: [employer] [phone] [facility]'s Placental Blood Program, [facility] Umbilical Cord Blood Bank, Private cord-blood diez--SAVING FOR YOUR OWN USE: [employer], (I think this is the least expensive) [employer] [phone] [employer], (360) [employer] [place] Cord Blood [facility], [phone]) 700-CORD Cells, [phone] [place] [employer], Cord Blood Registry, (771) [facility], An Internet search may provide you with additional listings. Disposition: Return in 4 days (on 12/16/2017) for New OB with Ruba Soto. Follow-up and Disposition History Recorded Letter Text Dear Isabella Mackay: How to activate your [facility] LEHR Account 1. Visit the LEHR Signup page at [email or web address] 2. Identify yourself using your one-time use activation code: [email or web address] 3. Follow the on-screen prompts to choose [...] Create your login and password, choose a LEHR ID and password that will be easy for you to use, but impossible for anyone else to guess. Pick a security question that will assist you in the event you forget your password the next time you log-on. If you have difficulty activating your account, please call our LEHR helpline at [phone] or toll free at . We hope you enjoy using LEHR! Kindest Regards, [facility] LEHR Team Encounter Status:Closed by ESTEVAN PAGE RN on 12/12/17 ALLERGIES ALLERGIES DATE TYPE / CODE NAME / CODE REACTION SEVERITY SOURCE 11/04/2018 Drug cephalexin/F0060 Rash Unknown [facility]416 99921(RXNORM) [facility] 622036(SNOM Repository ED CT) 10/23/2018 Drug No Known Unknown [facility] Allergy/416 Allergies/Q40613 Hospital 181154(SNOM 0388(RXNORM) Repository ED CT) Drug NO KNOWN [facility] Class/80550 ALLERGIES [facility] 1003(SNOMED Repository CT) ENCOUNTERS ENCOUNTERS ADMIT/DISCHARGE ACCOUNT NUMBER ADMITTING ENCOUNTER LOCATION SOURCE CLASS 11/04/2018/11/04/20 [id number] Emergency [address] ding:ED Repository 10/31/2018/10/31/20 [id number] Emergency [address] ding:ED Repository 10/26/2018/10/26/20 [id number] Emergency BBuilding:MILADIS Kumar [address] [place] [address] Repository 10/26/2018/10/26/20 [id number] Emergency [address] ding:ED Repository 10/23/2018/10/23/20 [id number] Emergency [address] ding:ED Repository 09/29/2018/09/29/20 [id number] Emergency [facility] ding:ED Repository 09/16/2018 [id number] Ambulatory [facility] ding:MFPLAB Repository 09/10/2018/09/11/20 [id number] Ambulatory [place] [facility] [place] Repository 09/06/2018/09/06/20 [id number] Emergency [place] [address] ding:ED Repository 09/04/2018/09/05/20 [id number] Emergency [facility] ding:ED Repository 08/29/2018/08/29/20 [id number] Emergency [place] [address] ding:ED Repository 07/24/2018/07/26/20 [id number] [facility]ey[facility]-McIn Inpatient [facility] [place], [place] Encounter [facility] ding:WPRoom: Repository IX479Kae: 1 07/23/2018/07/26/20 [id number] Ambulatory [place] 18 [facility] [place] Repository 07/16/2018/07/17/20 [id number] Ambulatory [place] 18 [facility] [place] Repository 07/11/2018/07/14/20 [id number] Ambulatory [place] 18 [facility] [place] Repository 07/10/2018/07/11/20 [id number] Ambulatory [place] [facility] [place] Repository 07/03/2018/07/04/20 [id number] Ambulatory [place] [facility] [place] Repository 06/25/2018/06/26/20 [id number] Ambulatory [place] [facility] [place] Repository 06/16/2018/06/17/20 [id number] Ambulatory [place] [facility] [place] Repository 06/02/2018/06/04/20 [id number] Ambulatory [place] [facility] [place] Repository 06/02/2018/06/02/20 [id number] Ambulatory [place] [facility] [place] Repository 05/22/2018/05/22/20 [id number] Ambulatory [place] [facility] [place] Repository 05/22/2018/05/22/20 [id number] Ambulatory [place] 18 [facility] [place] Repository 05/06/2018/06/19 [id number] Ambulatory [facility] [place] Rep[facility] 04/22/2018/04/22/20 [id number] [facility] [place] [facility] 04/22/2018/04/22/20 [id number] [facility] [place] [facility] 04/08/2018/04/08/20 [id number] Ambulatory [facility] [place] Rep[facility] 03/17/2018/03/17/20 [id number] Emergency [place] [facility] ding:ED Repository 03/11/2018/03/11/20 [id number] Ambulatory [facility] [place] Rep[facility] 02/27/2018/09/02/20 [id number] Ambulatory [place] [facility] [place] Rep[facility] 02/14/2018/02/15/20 [id number] Ambulatory [place] [address] [facility] [place] Repository 02/14/2018/02/15/20 [id number] Ambulatory [address] Main [place] Repository 01/17/2018/09/02/20 [id number] Ambulatory [place] [address] [facility] [place] Rep[facility] 01/17/2018/01/18/20 [id number] Amb[address] Main [place] Repository 12/16/2017/12/17/19 [id number] Ambulatory [place] [address] [facility] [place] Rep[facility] 12/12/2017/12/13/19 [id number] Amb[address] Main [place] Repository PAYERS PAYERS ENCOUNTER GUARANTOR PAYER SUBSCRIBER SOURCE 11/04/2018 ISABELLA M Primary [place] [id number] Insurance:ANTHEMPolic YKISDOB: [facility] y Number: [id number] [id number] Repository [address]Luc: 330) Date:9375-06-64BP [phone] () 111[address]LAENGQN, [place] [address]PY: 11/04/2018 Secondary ISABELLA M [place] Insurance:PARAMOUNT DENSMOREDOB: Community [id number] Hospital Number: Repository [id number] Date:2595-55-83[address] [address]CR: 11/04/2018 Tertiary NOT GIVENUNK [place] Insurance:SELF PAY [facility] Number: Effective Repository Date:2018-11-04 10/31/2018 [facility] [place] [id number] Insurance:ANTHEMPolic SLYKHUISDOB: Community [place] y Number: [id number] [place], [place] [id number] Repository [address]Tzk: 330) Date:0650-00-87NQ [phone] () 753413ZVEJNUB, [place] [address]ZT: 10/31/2018 Secondary [facility] [place] Insurance:PARAMOUNT DENSMOREDOB: Community ADVANTAGE MCDPolicy [id number] Hospital Number: Repository [id number] Date:8267-17-62OI [address] [place] [address]EE: 10/31/2018 Tertiary NOT GIVENUNK [place] Insurance:SELF PAY [facility] Number: Effective Repository Date:2018-10-31 10/26/2018 [facility] DENSMOREDOB: Insurance:ANTHEM BLUE DENSMOREDOB: Foundation [facility] [id number] Repository 1/2 [place] Number: 11/19 [place], [place] [id number] [place], [place] [address]Wni: (065) Date:2017-06-01 434[address]Ysi: () [id number] Name:BPO BOX ()Tel: [phone]) [id number], [place] 000-[address] () [address]PK: 10/26/2018 [facility] Insurance:PARAMOUNT DENSMOREDOB: Foundation [facility] [id number] Repository Number: 12 [place] [id number] [place], [place] Date:2018-10-26 [address]Cwg: [phone] [id number] [phone] Name:XPO BOX ()Tel: (201) [address], [place] 000[address] () [id number]: 10/26/2018 [facility] Primary [place] [id number] 1/2 Insurance:ANTHEMPolic SLYKHUISDOB: Community [place] y Number: [id number] [place] [id number] Repository [address]Qou: 330) Date:3467-46-15YX [phone] () [address] [place] [address]AL: 10/26/2018 Secondary [facility] [place] Insurance:PARAMOUNT DENSMOREDOB: Community ADVANTAGE MCDPolicy [id number] Hospital Number: Repository [id number] Date:0376-81-22PI [address] [address]ZP: 10/26/2018 Tertiary NOT GIVENUNK [place] Insurance:SELF PAY [facility] Number: Effective Repository Date:2018-10-26 10/23/2018 [facility] Primary [place] [id number] 1/2 Insurance:ANTHEMPolic SLYKHUISDOB: Community [place] y Number: [id number] [place] [id number] Repository [address]Tiz: (330) Date:2141-96-75VX [phone] () [address] [place] [address]CW: 10/23/2018 Secondary [facility] [place] Insurance:PARAMOUNT DENSMOREDOB: Community ADVANTAGE MCDPolicy [id number] Hospital Number: Repository [id number] Date:2991-00-10DP [address] [place] [address]NK: 10/23/2018 Tertiary NOT GIVENUNK [place] Insurance:SELF PAY [facility] Number: Effective Repository Date:2018-10-23 09/29/2018 [facility] Primary [facility] [place] [id number] 1/2 Insurance:PARAMOUNT DENSMOREDOB: Community [place] ADVANTAGE [facility] [id number] [place] Number: Repository [address]Dmz: 330 [id number] [phone] () Date:0056-36-59EP [address] [address]SR: 09/29/2018 Secondary [place] Insurance:ANTHEMPolic SLYKHUISDOB: Community y Number: [id number] [facility] [id number] Repository Date:0849-59-17VP [address] [place] [address]GX: 09/29/2018 Tertiary NOT GIVENUNK [place] Insurance:SELF PAY [facility] Number: Effective Repository Date:2018-09-29 09/16/2018 [facility] Primary [place] [id number] 1/2 Insurance:ANTHEMPolic SLYKHUISDOB: Community [facility] y Number: [id number] [place], [place] [id number] Repository [address]Hhy: (330) Date:7846-62-05BY [phone] () [address] [place] [address] [place] [address]BV: 09/16/2018 Secondary [facility] [place] Insurance:PARAMOUNT DENSMOREDOB: Community [facility] [id number] Hospital Number: Repository [id number] Date:6289-11-69ON [address] [address]FM: 09/16/2018 Tertiary NOT GIVENUNK [place] Insurance:SELF PAY [facility] Number: Effective Repository Date:2018-09-16 09/06/2018 [facility] Primary [place] [id number] 1/2 Insurance:ANTHEMPolic SLYKHUISDOB: Community [facility] y Number: [id number] [id number] Repository [address]Nfa: (330) Date:4948-33-07JS [phone] () 9755[address]VJFQLHR, [place] [address]ZB: 09/06/2018 Secondary ISABELLA M [place] Insurance:PARAMOUNT DENSMOREDOB: Community ADVANTAGE [facility] [id number] Hospital Number: Repository [id number] Date:8011-64-96UV [address] [place] [address]RY: 09/06/2018 Tertiary NOT GIVENUNK [place] Insurance:SELF PAY [facility] Number: Effective Repository Date:2018-09-06 09/04/2018 [facility] Primary [place] [id number] 1/2 Insurance:ANTHEMPolic SLYKHUISDOB: Community [place] y Number: [id number] [place], [place] [id number] Repository [address]Qrf: 330) Date:7303-46-41GV [phone] () [address] [place] [address]PH: 09/04/2018 Secondary [facility] [place] Insurance:PARAMOUNT DENSMOREDOB: Community ADVANTAGE [facility] [id number] Hospital Number: Repository [id number] Date:1374-38-65UM [address] [address]PO: 09/04/2018 Tertiary NOT GIVENUNK [place] Insurance:SELF PAY [facility] Number: Effective Repository Date:2018-09-04 08/29/2018 [facility] Primary [place] [id number] 1/2 Insurance:ANTHEMPolic SLYKHUISDOB: Community [place] y Number: [id number] [place] [id number] Repository [address]Cto: 330) Date:7378-93-91VZ [phone] () [address] [place] [address]FG: 08/29/2018 Secondary [facility] [place] Insurance:PARAMOUNT DENSMOREDOB: Community ADVANTAGE [facility] [id number] Hospital Number: Repository [id number] Date:9837-78-30QN [address] [address]QM: 08/29/2018 Tertiary NOT GIVENUNK [place] Insurance:SELF PAY [facility] Number: Effective Repository Date:2018-08-29 07/24/2018 [facility] Primary [place] [id number] Insurance:ANTHEMPolic SLYKHUISDOB: Community JANETTE KINA y Number: [id number], [place] [id number] Repository [address]Eui: (330) Date:7707-43-09WF [phone] () [address]85[address]LIWDJJQ, [place] [address]KF: 07/24/2018 Secondary [facility] [place] Insurance:PARAMOUNT DENSMOREDOB: Community [facility] [id number] Hospital Number: Repository [id number] Date:5240-65-91UW [address] [address]LV: 07/24/2018 Tertiary NOT GIVENUNK [place] Insurance:SELF PAY [facility] Number: Effective Repository Date:2018-07-24 03/17/2018 [facility] Primary [place] [id number] Insurance:ANTHEMPolic SLYKHUISDOB: Community JANETTE KINA y Number: [id number], [place] [id number] Repository [address]Shy: (330) Date:3600-07-81SH [phone] () [address]278[address]PCSNHWL, [place] [address]HU: 03/17/2018 Secondary NOT GIVENUNK [place] Insurance:SELF PAY [facility] Number: Effective Repository Date:2018-03-17
== END 2018-11-04 22:14 | disposition home or self-care (01) ==
PROVIDERS: Emergency Provider Emergency Medicine; Family Provider Family Medicine; PCP Family Medicine
DX: F41.0 Panic disorder [episodic paroxysmal anxiety] (principal); Z79.1 Long term (current) use of non-steroidal anti-inflammatories (NSAID); Z79.899 Other long term (current) drug therapy
CPT/HCPCS: 71045; 80048; 84484; 84703; 85025; 85379; 93005; 99285; A4216

== ENCOUNTER 2019-03-01 15:24 | Emergency (ER) | payer BC, MEDICAID, SELFPAY ==
[2019-03-01 15:25] VITALS: BP 94/67; PULSE 95; RESP 16; TEMP 36.4; O2SAT 97; BMI 21.2
--- NOTE | 2019-03-01 17:00 | RAD_ITS ---
STUDY: X-RAY CHEST REASON FOR EXAM: Female, 19 years old. Left-sided chest pain TECHNIQUE: PA and lateral chest COMPARISON: 11/04/2018 FINDINGS: The lungs are clear and expanded. There is no demonstrated pleural abnormality. Normal size heart. Normal mediastinum and henrry. Normal visualized pulmonary arteries. Normal visualized aortic arch and descending thoracic aorta. Normal visualized thoracic spine. Normal visualized ribs, clavicles, and shoulders. There is no demonstrated abnormality of the visualized soft tissue structures of the upper abdomen. RAD/Chest PA and Lateral IMPRESSION: Normal x-ray examination of the chest. Electronically Signed: Jorge Alvarez, at 17:27 EDT Tel , Service support ,
[2019-03-01 17:25] LABS: D-Dimer Quantitative (DVT/PE) < 0.27 FEU/ug/m (0.27-0.49)
--- NOTE | 2019-03-01 17:44 | ED.VISSUMM ---
- ER Visit Summary Date of Service: 03/01/19 Chief Complaint: [Left chest wall pain] History of Present Illness: The patient is a 19 F [presents to the emergency department complaint of pain in her left chest that started around 2 AM. Patient states she was up at the time when she noted some discomfort in the left anterior chest that can radiate around to her back. Patient states the pain is worse with deep breath and lying on that side. Patient denies any fever or cough. She denies any hemoptysis. She denies recent travel or surgery. She has had some mild exertional dyspnea. Patient denies any direct trauma.] Physical Examination: [HEENT-PERRLA, EOMI. Cranial nerves II through XII grossly intact. TMs clear. Mucous membranes moist. No adenopathy. Cardiovascular-regular rate and rhythm without murmur or ectopy Lungs-clear to auscultation, chest wall stable without crepitus or subcu emphysema. Patient does have some tenderness palpation over the left lower ribs in the anterior and mid axillary line. No ecchymosis or bruising noted. Abdomen-normoactive bowel sounds, soft, nontender, no rebound or rigidity, no peritoneal signs. Extremities-intact ?4, normal range of motion, normal pulses, atraumatic] Test Results: [D-dimer obtained was normal. Chest x-ray was normal.] Emergency Department Course and Treatment: [] Treatment Plan: [Patient will be given a prescription for Naprosyn. Advised to follow-up primary care physician 5-7 days.] Disposition: [Discharged home in stable condition. Patient advised to return if worsening pain, fever, increasing shortness of breath, or condition should worsen anyway.] Impression: [Chest wall pain] This note was generated with Ag[employer]ared dictation software. It may contain incorrect words, spelling, and punctuation that were not noted in review of the chart prior to signing ED Disposition - Plan for ED Patient: Referrals: Arron Brandt MD [Primary Care Provider] -
--- NOTE | 2019-03-01 17:46 | ED.DEP ---
ED Disposition - Plan for ED Patient: Instructions: ED Strain Chest Wall Prescriptions: Naproxen [Naprosyn] 500 mg PO BID PRN #20 tab Referrals: Arron Brandt MD [Primary Care Provider] - 3-5 Days
[2019-03-01 17:47] VITALS: BP 105/66; PULSE 83; RESP 12; O2SAT 94
== END 2019-03-01 17:56 | disposition home or self-care (01) ==
PROVIDERS: Emergency Provider Emergency Medicine; Family Provider Family Medicine; PCP Family Medicine
DX: R07.89 Other chest pain (principal)
CPT/HCPCS: 71046; 85379; 99283; A4216

== ENCOUNTER 2019-05-27 20:55 | Emergency (ER) | payer BC, MEDICAID, SELFPAY ==
[2019-05-27 20:56] VITALS: BP 128/70; PULSE 109; RESP 16; TEMP 37.1; O2SAT 98; BMI 21.7
[2019-05-27 21:23] LABS: Mucous, Urine 0 SEEN /hpf (<or=2+); Red Blood Cells-Urine 0 SEEN /hpf (0-5)
[2019-05-27 21:29] LABS: Color, Urine Yellow (Yellow); Glucose, Dipstick Normal (Normal); Ketone-Dipstick Negative (Negative); Leukocyte Esterase-Dipstick 500 /ul (Negative); Nitrite-Dipstick Negative (Negative); Occult Blood-Urine 10 /ul (Negative); Protein-Dipstick 15 mg/dl (Negative); Urine Bilirubin Dipstick Negative (Negative); Urine Clarity Cloudy (Clear); Urine Urobilinogen 4 mg/dl (Normal)
[2019-05-27 21:43] LABS: Internal QC Validated? YES +Cl - CLEAR BKGD
[2019-05-27 21:45] LABS: Pregnancy, Serum, hCG Quali. POSITIVE Negative
[2019-05-27 21:46] LABS: Bacteria 2+ /hpf (None Seen); Squamous Epithelial Cells - UA 0-5 SEEN /hpf (5-10)
[2019-05-27 21:47] LABS: White Blood Cells 5-10 SEEN /hpf (0-5)
--- NOTE | 2019-05-27 21:49 | ED.RN ---
DR BUCK NOTIFIED POSITIVE
--- NOTE | 2019-05-27 22:06 | RAD_ITS ---
STUDY: X-RAY CHEST REASON FOR EXAM: Female, 19 years old. Left flank pain. TECHNIQUE: PA and lateral views of the chest. COMPARISON: March 01, 2019. FINDINGS: The lungs are clear and expanded. There is no demonstrated pleural abnormality. Normal size heart. Normal mediastinum and henrry. Normal visualized pulmonary arteries. Normal visualized aortic arch and descending thoracic aorta. Normal visualized thoracic spine. Normal visualized ribs, clavicles, and shoulders. There is no demonstrated abnormality of the visualized soft tissue structures of the upper abdomen. RAD/Chest PA and Lateral IMPRESSION: No acute cardiopulmonary disease or interval change. Electronically Signed: Andrea Viveros DO at 22:26 EDT Tel [phone], Service support ,
--- NOTE | 2019-05-27 22:53 | ED.DCSUM_ITS ---
- ER Visit Summary Date of Service: 05/27/19 Chief Complaint: Left flank pain History of Present Illness: The patient is a 19 F G1, P1 Ab0 but states her last menstrual period was in February where she does not know if she is or not. Denies any vaginal bleeding or discharge. She has no significant past medical or surgical history. States she has had flank pain for the last 2 days. Denies nausea vomiting or diarrhea. No obvious dysuria. But says her urine appears slightly cloudy to her. Denies any hematuria. No fever. Physical Examination: Young female no acute distress vital signs are stable afebrile. HEENT exam unremarkable. Moist wheeze members. Neck nontender no lymphadenopathy. Lungs clear to auscultation bilaterally. Heart regular rhythm no murmur. Abdomen is soft. Nondistended normal bowel sounds no peritoneal signs. Extremities moves all 4. Neurovascularly intact. Calves are nontender without edema. Back she has minimal right flank CVA tenderness. There is no redness or warmth. Neurologically she is awake and alert. Test Results: Urine test positive. Urinalysis 5-10 whites 2+ bacteria no nitrates no red cells. Urine culture was sent. Urine test was positive we attempted heart tones and were unable to obtain them. More than likely she is less than 10 weeks. There is no signs of a enlarged, gravid or tender uterus. Emergency Department Course and Treatment: Patient be started on Macrobid for 1 week for possible UTI. A culture will be sent. Her last she was treated to [facility] and referred back to them for newly diagnosed first trimester Treatment Plan: Macrobid twice daily for a week. Urine culture. Follow-up with [facility]. Disposition: Discharge Impression: Left flank pain Rule out early UTI culture pending Newly diagnosed first trimester This note was generated with KickerPicker.comation software. It may contain incorrect words, spelling, and punctuation that were not noted in review of the chart prior to signing ED Disposition - Plan for ED Patient: Referrals: Arron Brandt MD [Primary Care Provider] -
[2019-05-27] MEDS: Nitrofurantoin Macrocrystals 100 MG Capsule PO (22:55)
--- NOTE | 2019-05-27 22:56 | ED.DEP ---
ED Disposition - Plan for ED Patient: Disposition: Home or Assisted Living Instructions: : Your First Trimester Changes Prescriptions: Nitrofurantoin Monohyd/M-Cryst [Macrobid 100 mg Capsule] 100 mg PO BID 7 Days #14 cap Prescription Printed Referrals: Elvira Sterling MD [STAFF PHYSICIAN] - As soon as possible Additional Instructions: Plenty of fluids. Tylenol for pain. [facility] Your urinalysis was positive for tonight my suspicion is that she first trimester. You will need further evaluation for this. We sent a urine culture. Her urine may be infected. Start on antibiotic Macrobid.
[2019-05-27 22:57] VITALS: BP 127/91; PULSE 99; RESP 16; O2SAT 99
== END 2019-05-27 23:19 | disposition home or self-care (01) ==
PROVIDERS: Emergency Provider Emergency Medicine; Family Provider Family Medicine; PCP Family Medicine
DX: O26.891 Other specified pregnancy related conditions, first trimester (principal); R10.9 Unspecified abdominal pain; Z3A.00 Weeks of gestation of pregnancy not specified
CPT/HCPCS: 71046; 81001; 84703; 87086; 87088; 99284; A4216

== ENCOUNTER 2019-11-12 19:50 | Outpatient (CLI) | payer BC, MEDICAID, SELFPAY ==
[2019-11-12] MEDS: Lactated Ringers 1,000 ML 999 ML IV (20:44)
[2019-11-12 20:53] VITALS: BMI 25.2
[2019-11-12 21:08] LABS: Absolute Lymphocyte Count 0.34 X10^3/uL (0.83-4.51); Absolute Neutrophil Count 9.9 X10^3/uL (2.0-7.7); Basophil# 0.02 X10^3/uL; Basophil% 0.2 % (0-1); Eosinophil# 0.01 X10^3/uL; Eosinophils% 0.1 % (0-5); Hematocrit 34.5 % (37-47); Hemoglobin 10.8 g/dL (12.0-15.0); Lymphocyte # 0.34 X10^3/ul (4.0); Lymphocyte % 3.2 % (19-41); Mean Corp Hgb Conc 31.3 g/dL (32-36); Mean Corpuscular Hgb 24.9 pg (27.0-32.0); Mean Corpuscular Volume 79.5 fL (81-99); Mean Platelet Vol. 10.5 fl (6.2-12.0); Monocyte# 0.46 X10^3/uL; Monocyte% 4.3 % (0-10); NRBC Flagged by Analyzer 0 % (0-5); Neutrophil # 9.92 X10^3/uL (2.7-7.7); Neutrophil % 91.9 % (47-70); POSITIVE DIFFERENTIAL YES; Platelet Count 293 K/mm3 (150-450); RBC Distribution Width CV 13.2 % (11.6-14.6); RBC Distribution Width SD 37.7 fl (35.1-43.9); Red Blood Count 4.34 M/mm3 (4.2-5.4); White Blood Count 10.8 K/mm3 (4.4-11.0)
[2019-11-12 21:29] LABS: Mucous, Urine 0 SEEN /hpf (<or=2+); Red Blood Cells-Urine 0 SEEN /hpf (0-5)
[2019-11-12 21:30] LABS: Color, Urine Yellow (Yellow); Glucose, Dipstick Normal (Normal); Leukocyte Esterase-Dipstick 500 /ul (Negative); Nitrite-Dipstick Negative (Negative); Occult Blood-Urine Negative /ul (Negative); Protein-Dipstick 15 mg/dl (Negative); Specific Gravity, Urine 1.025 (1.002-1.030); Urine Bilirubin Dipstick Negative (Negative); Urine Clarity Sl. Cloudy (Clear); Urine Urobilinogen 1 mg/dl (Normal)
[2019-11-12 21:33] LABS: Ketone-Dipstick 150 mg/dl (Negative)
[2019-11-12 21:36] LABS: ALB/GLOB Ratio 0.8 RATIO (0.9-2.4); AST(SGOT) 29 U/L (15-37); Alanine Aminotransfer ALT/SGPT 21 U/L (13-56); Albumin, Serum 3.1 g/dL (3.2-5.0); Alkaline Phosphatase 152 U/L (45-117); Anion Gap 11 (5-15); BUN 8 mg/dL (7-18); BUN/Creat Ratio 16.6 RATIO (10-20); Chloride 110 mmol/L (98-107); Creatinine, Serum 0.48 mg/dL (0.55-1.02); Differential Indicated SCAN CRITERIA MET; EST Glomerular Filtration Rate 172 mL/min (>60); Est Glom Filt Rate - Afr Amer 208 mL/min (>60); Estimated Creatinine Clearance 133.17 ml/min; Globulin 3.9 g/dL (2.2-4.2); Glucose 83 mg/dL (74-106); Potassium 3.4 mmol/L (3.5-5.1); Sodium Level 139 mmol/L (136-145)
[2019-11-12 21:40] LABS: Squamous Epithelial Cells - UA 10-25 SEEN /hpf (5-10)
[2019-11-12 21:41] LABS: Bacteria 1+ /hpf (None Seen); White Blood Cells 5-10 SEEN /hpf (0-5)
[2019-11-12] MEDS: Lactated Ringers 500 ML 999 ML IV (22:00)
[2019-11-12 22:02] LABS: Differential Comment SCANNED
--- NOTE | 2019-11-14 21:16 | OB.TRI.NOTE ---
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 For Visit: RULE OUT LABOR Date of Service: 11/12/19 Final ROBERT: 12/15/19 Final ROBERT Source: US <20 weeks Gestational age: 35 2/7 Allergies cephalexin [From Keflex] Allergy (Verified 11/12/19 20:55) Rash - Pertinent Past Medical History Medical History: Past Medical History (Last Updated 07/24/18 @ 07:27 by Swathi Julian DO) Anemia Laboratory Studies: Laboratory Tests 11/12/19 11/12/19 11/12/19 Range/Units 20:40 20:40 20:20 WBC 10.8 (4.4-11.0) K/mm3 RBC 4.34 (4.2-5.4) M/mm3 Hgb 10.8 L (12.0-15.0) g/dL Hct 34.5 L (37-47) % MCV 79.5 L (81-99) fL MCH 24.9 L (27.0-32.0) pg MCHC 31.3 L (32-36) g/dL RDW Std Deviation 37.7 (35.1-43.9) fl RDW Coeff of Benjamin 13.2 (11.6-14.6) % Plt Count 293 (150-450) K/mm3 MPV 10.5 (6.2-12.0) fl Immature Gran % (Auto) 0.300 (0.0-0.9) % Neut % (Auto) 91.9 H (47-70) % Lymph % (Auto) 3.2 L (19-41) % Larue % (Auto) 4.3 (0-10) % Eos % (Auto) 0.1 (0-5) % Baso % (Auto) 0.2 (0-1) % Absolute Neuts (auto) 9.9 H (2.0-7.7) X10^3/uL Absolute Lymphs (auto) 0.34 L (0.83-4.51) X10^3/uL Nucleated RBC % 0 (0-5) % Differential Comment SCANNED Sodium 139 (136-145) mmol/L Potassium 3.4 L (3.5-5.1) mmol/L Chloride 110 H (98-107) mmol/L Carbon Dioxide 18.0 L (21.0-32.0) mmol/L Anion Gap 11 (5-15) BUN 8 (7-18) mg/dL Creatinine 0.48 L (0.55-1.02) mg/dL Estim Creat Clear Calc 133.17 ml/min Est GFR (MDRD) Af Amer 208 (>60) mL/min Est GFR (MDRD) Non-Af 172 (>60) mL/min BUN/Creatinine Ratio 16.6 (10-20) RATIO Glucose 83 (74-106) mg/dL Calcium 9.0 (8.5-10.1) mg/dL Total Bilirubin 1.20 H (0.20-1.00) mg/dL AST 29 (15-37) U/L ALT 21 (13-56) U/L Alkaline Phosphatase 152 H (45-117) U/L Total Protein 7.0 (6.4-8.2) g/dL Albumin 3.1 L (3.2-5.0) g/dL Globulin 3.9 (2.2-4.2) g/dL Albumin/Globulin Ratio 0.8 L (0.9-2.4) RATIO Urine Color Yellow (Yellow) Urine Clarity Sl. Cloudy (Clear) Urine pH 6.0 (5.0 - 8.0) Ur Specific [place] 1.025 (1.002-1.030) Urine Protein 15 H (Negative) mg/dl Urine Glucose (UA) Normal (Normal) mg/dl Urine Ketones 150 H (Negative) mg/dl Urine Occult Blood Negative (Negative) /ul Urine Nitrite Negative (Negative) Urine Bilirubin Negative (Negative) mg/dL Urine Urobilinogen 1 H (Normal) mg/dl Ur Leukocyte Esterase 500 H (Negative) /ul Urine RBC 0 SEEN (0-5) /hpf Urine WBC 5-10 SEEN (0-5) /hpf Ur Squamous Epith Cells 10-25 SEEN (5-10) /hpf Urine Bacteria 1+ (None Seen) /hpf Urine Mucus 0 SEEN (<or=2+) /hpf NST - FHR Rate Baby A Baseline: 135 Variability:: Moderate Accelerations:: 15 x 15 Decelerations:: None NST Reactive:: Yes FHR Category:: Category I Uterine Activity:: irritability w/ irreg ctxs Impression/Plan 19 YOF @ 35 2/7 weeks high risk multigravida threatened PTL not in active labor, d/c home to f/u prn or in the office
== END 2019-11-12 22:48 | disposition home or self-care (01) ==
LOC: WPOUT 20:45 → OBT 20:46
PROVIDERS: Family Provider Family Medicine; PCP Family Medicine; Referring Provider Advanced Practice Midwife; Visit Provider Advanced Practice Midwife
DX: O47.03 False labor before 37 completed weeks of gestation, third trimester (principal); Z3A.35 35 weeks gestation of pregnancy
CPT/HCPCS: 36415; 59025; 59050; 80053; 81001; 85025; 99218; J7120; G0378

== ENCOUNTER 2019-12-06 00:30 | Outpatient (CLI) | payer BC, MEDICAID, SELFPAY ==
[2019-12-06 01:06] VITALS: BMI 26.5
--- NOTE | 2019-12-06 07:24 | OB.TRI.NOTE ---
History of Present Illness Date of Service: 12/06/19 Was patient seen by the physician?: No Reason For Visit: FALL Date of Service: 12/06/19 Final ROBERT: 12/15/19 Final ROBERT Source: US <20 weeks Gestational age: 38 Weeks and 5 Days History of Present Illness: at 38.5 weeks status post a fall with no abdominal trauma. Patient states she fell on knees and hands with no impact to the sides belly or back. Patient originally came to the emergency room for evaluation of her ankle which was injured. No vaginal bleeding leaking fluid or decreased movement. Allergies cephalexin [From Keflex] Allergy (Verified 12/06/19 03:26) Rash - Pertinent Past Medical History Medical History: Past Medical History (Last Updated 07/24/18 @ 07:27 by Swathi Julian DO) Anemia NST - FHR Rate Baby A Baseline: 120 Variability:: Moderate Accelerations:: 15 x 15 Decelerations:: None NST Reactive:: Yes FHR Category:: Category I Uterine Activity:: irregular Impression/Plan 19yo @ 38.5 weeks, s/p fall with NO abdominal trauma 1) NST reactive- well being established 2) dc back to ER for ankle evaluation
== END 2019-12-06 03:25 | disposition home or self-care (01) ==
LOC: WPOUT 01:00 → WP 01:01
PROVIDERS: PCP Family Medicine; Visit Provider Obstetrics & Gynecology
DX: Z34.03 Encounter for supervision of normal first pregnancy, third trimester (principal)
CPT/HCPCS: 59025; 59050; 99218; G0378

== ENCOUNTER 2019-12-06 03:24 | Emergency (ER) | payer BC, MEDICAID, SELFPAY ==
[2019-12-06 01:06] VITALS: BMI 26.5
[2019-12-06 03:24] VITALS: BP 120/67; PULSE 65; RESP 16; TEMP 36.4; O2SAT 97; BMI 26.2
--- NOTE | 2019-12-06 03:44 | RAD_ITS ---
STUDY: X-RAY - RIGHT FOOT CLINICAL: Female, 19 years old. Pain after kicking injury. TECHNIQUE: 3 view(s) of the foot. COMPARISON: None. FINDINGS: No visible fracture. No osseous destruction. Alignment anatomic. No significant degenerative changes. Soft tissues unremarkable. RAD/Foot min 3 Views IMPRESSION: No acute osseous abnormality. Electronically Signed: David Denise, at 4:06 EST Tel , Service support ,
--- NOTE | 2019-12-06 04:10 | ED.VIS.LOWEX ---
History of Present Illness Chief Complaint: Lower Extremity Injury Informant: Patient Occurred: Hours - 1 Mechanism/Context: Injury Context: Sudden Onset - Accidentally kicked a child's toy in the dark, causing her to trip and fall. Timing: Continuous Quality of Pain: Aching Location: Dorsum of right foot Current Severity: Moderate Maximum Severity: Moderate Worsened by: Palpation, walking Relieved by: Rest Associated Symptoms: Negative for: Parasthesia, Weakness, Loss of Funtion Narrative: Patient tripped and fell but did not twist her ankle or have any other injury. She thinks she injured her foot from actually kicking the toe in the dark. Past Medical History - Allergies and Home Meds Allergies/Adverse Reactions: Allergies cephalexin [From Keflex] Allergy (Verified 12/06/19 03:26) Rash Primary Care Physician: Arron Brandt MD [Primary Care Provider] - Past Medical History: None Lives: With Family Smoking Status: Never smoker Review of Systems Musculoskeletal: Reports: Extremity Pain. Denies: Swelling Skin: Reports: Wounds. Denies: Rash Neurological: Denies: Headache, Weakness, Parasthesia Physical Exam Vital Signs/Narrative: Vital Signs Temp Pulse Resp BP Pulse Ox 12/06/19 03:24 97.6 F L 65 16 120/67 97 Inital Vital Signs reviewed: Yes - Extremity Exam Right Ankle: Negative for: Limited ROM - No bony tenderness or swelling. Right Foot: Contusion - With abrasion at one particular point which is tender on the dorsum of the foot, just distal to the base of the second metatarsal. No deformities. Right Toe: Negative for: Limited ROM - Nontender throughout all toes General: Well nourished, Well developed Head: Normocephalic, Atraumatic Skin: Trauma - Abrasion/small contusion dorsum of right foot Neurological: Alert, Oriented x3, Cranial nerves II-XII grossly intact, Normal Strength, Normal Sensation Psychological: Normal affect, Normal Mood Diagnostic/Tx/Re-eval Clinical Impression(s) from Imaging Studies Foot X-Ray 12/06/19 03:44 IMPRESSION: No acute osseous abnormality. Electronically Signed: David Denise, at 4:06 EST Tel , Service support , - Medical Decision Making Reassured no fracture. Supportive care advised. I do not think she needs narcotics for this and she does not appear to be in significant pain. She took some NSAIDs prior to arrival. ED Disposition - Plan for ED Patient: Disposition: Home or Assisted Living Diagnosis: Contusion of right foot Instructions: CONTUSION, Foot Referrals: Arron Brandt MD [Primary Care Provider] - As Needed
[2019-12-06 04:25] VITALS: RESP 14
== END 2019-12-06 04:25 | disposition home or self-care (01) ==
PROVIDERS: Emergency Provider Emergency Medicine; PCP Family Medicine
DX: S90.31XA Contusion of right foot, initial encounter (principal); W18.09XA Striking against other object with subsequent fall, initial encounter; Y93.01 Activity, walking, marching and hiking; Y92.008 Other place in unspecified non-institutional (private) residence as the place of occurrence of the external cause; Y99.8 Other external cause status
CPT/HCPCS: 73630; 99282

== ENCOUNTER 2019-12-16 05:18 | Inpatient (IN) | payer BC, MEDICAID, SELFPAY ==
[2019-12-16] MEDS: Lactated Ringers 500 ML 999 ML IV (06:17)
[2019-12-16 06:27] VITALS: BMI 26.9
[2019-12-16 06:36] LABS: Absolute Lymphocyte Count 1.42 X10^3/uL (0.83-4.51); Absolute Neutrophil Count 6.1 X10^3/uL (2.0-7.7); Basophil# 0.03 X10^3/uL; Basophil% 0.4 % (0-1); Eosinophil# 0.11 X10^3/uL; Eosinophils% 1.3 % (0-5); Hematocrit 32.8 % (37-47); Lymphocyte # 1.42 X10^3/ul (4.0); Lymphocyte % 16.7 % (19-41); Mean Corp Hgb Conc 30.5 g/dL (32-36); Mean Corpuscular Hgb 23.5 pg (27.0-32.0); Mean Platelet Vol. 10.7 fl (6.2-12.0); Monocyte# 0.82 X10^3/uL; Monocyte% 9.6 % (0-10); NRBC Flagged by Analyzer 0 % (0-5); Neutrophil # 6.07 X10^3/uL (2.7-7.7); Neutrophil % 71.3 % (47-70); Platelet Count 245 K/mm3 (150-450); RBC Distribution Width CV 15.1 % (11.6-14.6); RBC Distribution Width SD 41.5 fl (35.1-43.9); Red Blood Count 4.26 M/mm3 (4.2-5.4); White Blood Count 8.5 K/mm3 (4.4-11.0)
[2019-12-16] MEDS: Lactated Ringers 1,000 ML 50 ML IV (06:50)
--- NOTE | 2019-12-16 08:05 | PCM.HP.OB ---
History Date of Admission: 07/24/18 Final ROBERT: 12/15/19 Final ROBERT Source: US <20 weeks Gestational age: 40 Weeks and 1 Days History of this : This is a 19 year-old, 2 para 1 at 40-1/7 weeks gestation presents complaining contractions. She was found to be 5 cm and 80% effaced and was in active labor. She was admitted. She denied any gross vaginal bleeding or leaking of fluid. History of one previous vacuum-assisted vaginal delivery. Full history significant for anemia and genital warts. Medical History: Medical History (Last Updated 07/24/18 @ 07:27 by Swathi Julian DO) Anemia D64.9 Allergies cephalexin [From Keflex] Allergy (Verified 12/06/19 03:26) Rash Home Medications: Home Medications Vit No.130/Iron/Folic [ Tablet] 1 tab PO DAILY 11/12/19 Smoking Status: Never smoker History Past Pregnancies: Past Pregnancies Delivery Date Name GA/ Weeks Outcome Route Wt Infant Sex Labor Length Anesthesia Delivery Location Provider FOB Expected Delivery Method: Spontaneous Vaginal Review of Systems Constitutional: Denies: Chills, Fever Eyes: Denies: Blurred vision Cardiovascular: Denies: Chest Pain Respiratory: Denies: Cough Physical Exam General: Alert, Cooperative, No apparent distress Cardiovascular: Regular rate Lungs: Normal air movement Abdomen: Soft, Non Tender, Non-Distended, Gravid, Appropriate for Gestational Age Assessment/Plan All Active Problems (Last Updated 07/24/18 @ 07:27 by Swathi Julian DO) SROM (spontaneous rupture of membranes) (Acute) This is a 19 year-old, 2 para 1 at 40-1/7 weeks gestation in spontaneous labor. Admit for labor. Estimated weight is less than 5000 g clinically and pelvis clinically adequate to expect vaginal delivery. May have epidural, IV meds or nitrous oxide as needed for pain control.
[2019-12-16] MEDS: fentaNYL-bupivacaine (epidural) 100 ML BAG EPIDURAL ×2 (08:31→12:35)
--- NOTE | 2019-12-16 08:55 | PCM.PN.BLA ---
Progress Note S/p epidural and pt comfortable. Cvx 6/80/-1, head well applied. AROM performed in usual fashion for clear fluid. Category 1 tracing. Anticipate .
[2019-12-16] MEDS: Mag Hydrox/Al Hydrox/Simeth 30 ML UDC PO (09:27)
[2019-12-16] MEDS: Oxytocin 30 units/NS 500 ml 30 UNITS/500 ML IV.SOLN 334 UNITS IV (13:48)
--- NOTE | 2019-12-16 14:43 | PLAC_PTH ---
PATIENT: ISABELLA MACKAY LOC: [facility] U#:[id number] AGE/SX: 19/F ROOM: WP007 RE12/16/[address]: Dr. Swathi Julian DO : 2000 BED: 1 DIS: 12/17/2019 SPEC #: [id number] RECD: 12/16/19 16:53 STATUS: TINO JANIE #: [id number] BRIAN: 12/16/19 14:[address]: Swathi Julian DEPT: SURGICAL PATHOLOGY RECD BY: Sixto Steele ENTERED: 12/17/19 08:07 SP TYPE: PLACENTA OTHR DR: Dr. Arron Brandt MD Tissues: Placenta, NOS Procedures: Surgery Specimen Level V HEADER OPERATION: Vaginal delivery PRE-OP DIAGNOSIS: Cord appeared to have possible varix TISSUE SUBMITTED: Placenta MICROSCOPIC DIAGNOSIS Lockett placenta (474 gm): Umbilical cord - trivascular with no pathologic change. Placental membranes - acute deciduitis. Placental disc - organizing intraparenchymal hemorrhage, mild Olga-Cj change and focal acute deciduitis. AM:don 12/21/19 MICROSCOPIC DESCRIPTION Slides are reviewed. GROSS DESCRIPTION SPECIMEN: PLACENTA / CLINICAL INFORMATION: A. Weight: 3.306 kg B. Gestational Age: 40 weeks C. Sex: Male PLACENTAL WEIGHT (POST FIXATION): 474 gm PLACENTAL DIMENSIONS: 17.5 x 16 x 3 cm PLACENTAL SHAPE: Usual ovoid PLACENTAL WEIGHT FOR GESTATIONAL AGE: Within 10-99th percentile MEMBRANES - Present A. Insertion: Marginal B. Site of rupture from edge: 6 cm from edge of placental disc C. Color of membrane: Sutherland-matthews D. Abnormalities: None UMBILICAL CORD - Present A. Color: Sutherland-matthews B. Insertion: Near central C. Length: 41 cm D. Diameter: 1 cm E. Number of vessels: Three F. Abnormalities: None PLACENTAL DISC - Present A. Color of surface: Sutherland-matthews B. surface abnormalities: None C. Maternal cotyledons: Intact with minimal tears D. Attached retro placental clot: No clot E. Cut surface: Dark red and spongy F. Lesions: Serial sections reveal a sutherland-yellow lesion measuring 1 cm in greatest dimension. G. Separate clot: 6 x 3.5 x 2 cm SECTIONS SUBMITTED: 1. Umbilical cord ( end notched) 2. Umbilical cord, placental end 3. Membrane roll 4. Placental disc, and maternal surfaces, lesion 5. Placental disc, and maternal surfaces 6. Placental disc, and maternal surfaces AM:don 12/18/19 TC:2 CPT: 23465
--- NOTE | 2019-12-16 14:45 | PCM.OPRPT ---
Problem List (1) 40 weeks gestation of Status: Acute (2) Multiparous Status: Acute (3) Active labor at term Status: Acute Report of Operation Date of Procedure: 12/16/19 Pre-Operative Diagnosis: 40 week gestation, multiparous patient, labor at term Post-Operative Diagnosis: As above Surgery/Procedure Performed:: Description of Surgical Findings:: VMI in cephalic presentation. Clear fluid. Intact and normal appearing placenta. Cord was thin with 3 vessels. Type of Anesthesia:: Epidural Specimen's removed: Placenta Drains: None Estimated Blood Loss (mL): 250 Description of Procedure: Patient complete and pushing. Head was delivered without any force or delay. A loose nuchal cord x1 around the neck was noted. The nuchal cord was reduced, and upon reducing the cord the cord avulsed. The anterior shoulder, posterior shoulder, followed by body of infant was delivered without any force or delay. The cord was clamped. Viable male was placed on maternal abdomen. Placenta was delivered with fundal massage. The placenta was noted to be normal-appearing and intact with a three-vessel cord. The cord appeared thin with what appeared to be a dilation in the cord. Placenta was sent to pathology for review. The uterus was explored x2 with removal of a scant amount of membranes. Fundus was firm and bleeding hemostatic. A periurethral tear was reapproximated with a single interrupted suture to ensure that it was hemostatic. Instrument counts were correct. Grafts/Implants Used: None - Complications None - Admit VTE Documentation VTE Present on Admission: No VTE Mechan Device Prophylaxis: SCD's Vaginal Delivery Maternal Presentation: Active Labor Amniotic Membrane Rupture Type: Artificial Amniotic Fluid Description: Clear Gestational age: 40 weeks Surgery/ Procedure Performed: Spontaneous Vaginal Delivery Type of Anesthesia: Epidural Presentation: Vertex Placental Delivery Description: Expressed Placenta Disposition: [facility] Cord Vessel Description: 3 Vessels Nuchal Cord Compression: Without compression Cord Entanglement: Around neck x 1, loose Infant A gender: Male (1 minute): 8 (5 minute): 9 Episiotomy Description: None Laceration: Periurethral Extnsion/lac Medications given after delivery: IV Pitocin Complications: None
[2019-12-16] MEDS: Ibuprofen 600 MG Tablet PO (18:58)
[2019-12-16 20:30] VITALS: BP 97/60; PULSE 76; RESP 16; TEMP 37.1; O2SAT 97
[2019-12-16] MEDS: Acetaminophen 500 MG Tablet 1000 MG PO (20:58)
[2019-12-16 23:59] VITALS: BP 86/43; PULSE 78; RESP 16; TEMP 36.8; O2SAT 98
[2019-12-17 04:15] VITALS: BP 100/46; PULSE 76; RESP 16; TEMP 36.9; O2SAT 100
[2019-12-17] MEDS: Ibuprofen 600 MG Tablet PO (04:26)
[2019-12-17 07:50] VITALS: BP 85/39; PULSE 63; RESP 16; TEMP 37.6; O2SAT 97
[2019-12-17] MEDS: Senna/Docusate Sodium 1 Tablet PO (08:07)
[2019-12-17] MEDS: Acetaminophen 500 MG Tablet 1000 MG PO (08:07)
--- NOTE | 2019-12-17 08:27 | PCM.PN.OB ---
Patient Problems: Active and Suspected Problems (Last Updated 07/24/18 @ 07:27 by Swathi Julian DO) 40 weeks gestation of (Acute) Multiparous (Acute) Active labor at term (Acute) Subjective: Patient doing well. Having some cramping. Denies lightheadedness, dizziness, chest pain, shortness of breath, leg pain. Lochia normal. She is ambulating and voiding without difficulty. Lochia normal. - Physical Exam Vitals/I&O's: Vital Signs Temp Pulse Resp BP Pulse Ox 99.7 F H 63 16 85/39 L 97 12/17/19 07:50 12/17/19 07:50 12/17/19 07:50 12/17/19 07:50 12/17/19 07:50 Oxygen Delivery Method Room Air Weight: 138 lb 2 oz Body Mass Index (BMI) 26.9 Intake and Output for Last 24 Hours 12/15/19 12/16/19 12/17/19 23:59 23:59 23:59 Intake Total 1348.00 / 1348.00 Output Total 500 / 500 Balance 848.00 / 848.00 General: Alert, No apparent distress HEENT: Atraumatic Abdomen: Soft, Non Tender, - - FF@U-1 Extremities: No edema, No Calf Tenderness Skin: No rashes Neurological: Neuro grossly intact Psych/Mental Status: Normal Affect, Appropriate Current Medications Acetaminophen (Tylenol) 1,000 mg PO Q8H PRN PRN PRN Reason: Pain Score 1-3/10 Last Admin: 12/17/19 08:07 Dose: 1,000 mg Documented by: Bisacodyl (Dulcolax) 10 mg RECTAL UD PRN PRN Reason: If no BM Dibucaine (Dibucaine) 1 applic TOPICAL TID PRN PRN; Protocol PRN Reason: Discomfort Hydrocortisone (Hytone) 1 applic TOPICAL TID PRN PRN; Protocol PRN Reason: Discomfort Ibuprofen (Motrin) 600 mg PO Q6H PRN PRN PRN Reason: Pain Score 1-3/10 Last Admin: 12/17/19 04:26 Dose: 600 mg Documented by: Methylergonovine Maleate (Methergine) 0.2 mg IM X1 PRN PRN Reason: Excess bleeding/uterine atony Ondansetron HCl (Zofran) 4 mg IV Q4H PRN PRN PRN Reason: Nausea Senna/Docusate Sodium (Senokot-S, Kelley-Colace) 1 - 2 tablet PO DAILY PRN PRN PRN Reason: Constipation Last Admin: 12/17/19 08:07 Dose: 2 tablet Documented by: Simethicone (Mylicon) 80 mg PO PCHS PRN PRN Reason: Indigestion/Stomach pain Sodium Chloride () 5 - 15 ml IV UD PRN PRN Reason: SALINE FLUSH Medical Necessity - Tobacco Use Smoking Status: Never smoker Assessment/Plan All Active Problems (Last Updated 07/24/18 @ 07:27 by Swathi Julian DO) SROM (spontaneous rupture of membranes) (Acute) 40 weeks gestation of (Acute) Multiparous (Acute) Active labor at term (Acute) PPD#1 - Doing well - - She would like to discuss BC in office - Dispo: Pt desires to go home today. Discharge instructions reviewed
--- NOTE | 2019-12-17 08:36 | DCINST_ITS ---
Discharge Diet: No Restrictions Discharge Activity: May Shower May resume sexual activity in: 6 weeks Ice area for (Minutes): 15 Weight Bearing Status: Weight bearing as tolerated Lifting Restrictions: None Call your doctor if you observe: Fever of 101 or Higher, Inability to urinate, Inability to have a bowel movement, Using more than one pad per hour, Shortness of breath, Dizziness, Chest pain, Increased palpitations (irregular heartbeat), Calf discomfort, Uncontrolled pain Cleanse incision/area with: Soap & Water Instructions: After a Vaginal Additional Instructions: If you experience any of the following, contact your healthcare provider. * Bleeding that soaks a pad every hour for 2 hours * Fever 100.4 or higher * Unrelieved incision or abdominal pain * Swelling, redness, discharge or bleeding from your incision or episiotomy site * Your incision begins to separate * Problems urinating (including inability to urinate or burning while urinating). * Visual changes * Severe headache * Flu-like symptoms * Pain or redness in one of both of your breasts * Pain, warmth, tenderness or swelling in your legs, especially the calf area * Frequent nausea and vomiting * Symptoms of depression or anxiety If you experience any of the following, call 911 or go to the nearest Emergency Room. * Chest pain * Problems breathing * Seizure activity * Partial or complete paralysis of a body part, slurred speech, weakness or drooping of the face, or a sudden inability to walk or hold your balance Allergies/Adverse Reactions: Allergies cephalexin [From Keflex] Allergy (Verified 12/06/19 03:26) Rash Medications to take at Discharge Vit No.130/Iron/Folic [ Tablet] 1 tab PO DAILY 11/12/19 Primary Care Physician: Arron Brandt MD [Primary Care Provider] - Test Results: Test results from this visit will be discussed in further detail at your follow- up appointment, if applicable.
[2019-12-17 12:45] VITALS: BP 102/59; PULSE 71; RESP 16; TEMP 36.7
--- NOTE | 2019-12-17 17:02 | NURSING ---
agree with student nurses charting that is used for educational learning purposes
[2019-12-17 17:45] VITALS: BP 95/57; PULSE 70; RESP 16; TEMP 36.9
[2019-12-21 15:36] LABS: Pathology Specimen OB SEE PATHOLOGY REPORT
== END 2019-12-17 17:45 | disposition home or self-care (01) | DRG 807 ==
PROVIDERS: Obstetrics & Gynecology; Admitting Provider Obstetrics & Gynecology; PCP Family Medicine; Referring Provider Obstetrics & Gynecology; Visit Provider Obstetrics & Gynecology
DX: O48.0 Post-term pregnancy (principal); Z37.0 Single live birth; Z3A.40 40 weeks gestation of pregnancy; O69.81X0 Labor and delivery complicated by cord around neck, without compression, not applicable or unspecified; O71.82 Other specified trauma to perineum and vulva
CPT/HCPCS: 59025; 59050; 85025; 86850; 86900; 86901; 88307; 99218; J7120; G0378

== ENCOUNTER 2021-05-21 19:07 | Emergency (ER) | payer OTHER, MEDICAID, SELFPAY ==
[2021-05-21 19:07] VITALS: BP 130/69; PULSE 90; RESP 16; TEMP 36.6; O2SAT 100; BMI 22.8
--- NOTE | 2021-05-21 19:49 | EX.ED.DYSGE1 ---
HPI History of Present Illness Chief Complaint: Anxiety Informant: patient and parent Narrative Narrative: Patient is a 21-year-old female with a past medical history of anxiety who presents to the emergency department for panic attack. She states that she has been under a lot of stress lately. She has issues with her kids and her child's father. She is also started a new job. She states that she has been feeling short of breath. She gets tingling in her hands and feet. This is very typical of her panic attacks. Has been happening more frequently lately. She was previously on Zoloft a few years previously but was taken off as she was doing very well. She denies any chest pain. No recent illness including any cough, cold, congestion. No vomiting or diarrhea. No urinary symptoms. She denies any chance of being . PFSH PFS Medical History Anemia Anxiety Smoker Home Medications NK 05/21/21 [History Last Taken Unknown] Allergy/AdvReac Type Severity Reaction Status Date / Time cephalexin [From Keflex] Allergy Rash Verified 05/21/21 19:09 Social History Smoking Status: Current some day smoker tobacco type: cigarettes ROS ROS ED Constitutional Constitutional ED: Denies chills or fever(s) Eyes Eyes: Denies change in vision ENT ENT ED: Denies epistaxis or rhinorrhea Cardiovascular Cardiovascular: Denies chest pain Respiratory/Chest Respiratory/Chest: Denies cough or dyspnea on exertion Gastrointestinal Gastrointestinal: Denies abdominal pain, diarrhea, nausea or vomiting Genitourinary Genitourinary ED: Denies dysuria, hematuria or urinary frequency Musculoskeletal Musculoskeletal: Denies back pain or neck pain Integumentary Denies rash Neurologic Neurologic: Denies dizziness, headache(s) or weakness EXAM Physical Exam Const Vital Signs: 05/21/21 19:07 Temperature 97.9 F Temperature Source Temporal Pulse Rate 90 Respiratory Rate 16 Blood Pressure 130/69 H Blood Pressure Mean 89 Pulse Ox 100 Oxygen Delivery Method Room Air Positive well nourished and well developed General Appearance ED: well developed and NAD HEENT Reports normocephalic, head/scalp atraumatic and moist mucous membranes Eyes PERRL and EOMs intact bilaterally Neck supple Chest Wall inspection of chest normal Resp normal respiratory effort and clear to auscultation bilaterally Auscultation: Negative for rales, rhonchi or wheezes Cardio regular rate, regular rhythm and no murmurs GI normal to inspection, nondistended, normoactive bowel sounds and non-tender Palpation: soft; Negative for guarding or rebound tenderness present Back/Spine no CVA tenderness Extremity normal to inspection General Extremety ED: Negative for edema or tenderness General Extremity: Negative for edema Neuro oriented x3, CN's II-XII intact bilaterally and no sensory deficits noted Sensorium / Orientation: alert Motor Exam: strength 5/5 throughout Psych Mood & Affect: anxious Skin no rashes or lesions noted MDM MDM MDM Narrative Medical decision making narrative: Patient presents to the ED for panic attack. She does feel very anxious. She gets cold clammy hands, tingling in her hands and feet. She feels short of breath. On arrival to the emerge department she is satting on her percent on room air. The rest of her vitals are within normal limits. She is a benign exam. Will trial a dose of Ativan. After dose of Ativan she is reassessed. She appears a lot more comfortable. She is denying any symptoms now. I have low concern for underlying pathology including ACS, PE, pneumonia or other cardiopulmonary abnormality. She does feel countable going home at this time. She needs a follow-up with her PCP and get back on medications for her anxiety. She understands and is agreeable with plan. Discharged home in stable condition. All questions were answered. Clinical impression: #1 panic attack Discharge Plan Triage Chief Complaint: Anxiety ED Provider: Ramesh Mitchell Dx/Rx/DC Orders Instructions: ED Panic Attack Prescriptions: No Action NK RF: 0 Primary Care Provider: Arron Brandt Referrals: Arron Brandt MD [Primary Care Provider] - 2 Days Disposition Disposition: Home, Self Care
[2021-05-21] MEDS: LORazepam 1 MG Tablet PO (20:16)
[2021-05-21 21:32] VITALS: BP 104/68; PULSE 72; RESP 15; O2SAT 98
== END 2021-05-21 21:33 | disposition home or self-care (01) ==
PROVIDERS: Emergency Provider Emergency Medicine; PCP Family Medicine
DX: F41.0 Panic disorder [episodic paroxysmal anxiety] (principal); F17.210 Nicotine dependence, cigarettes, uncomplicated
CPT/HCPCS: 99282

== ENCOUNTER 2023-09-26 20:35 | Inpatient (IN) | payer BC, SELFPAY ==
[2023-09-26] VITALS (20 sets, daily range): BP systolic 91–134; BP diastolic 52–76; PULSE 75–104; TEMP 36.7; O2SAT 93–100; BMI 26.9
[2023-09-26] MEDS: LACTATED RINGERS 500 ML 999 ML IV (20:30)
[2023-09-26 20:51] LABS: Absolute Lymphocyte Count 1.58 X10^3/uL (0.83-4.51); Absolute Neutrophil Count 7.2 X10^3/uL (2.0-7.7); Basophil# 0.05 X10^3/uL; Basophil% 0.5 % (0-1); Eosinophil# 0.06 X10^3/uL; Eosinophils% 0.6 % (0-5); Hematocrit 37.8 % (37-47); Hemoglobin 11.7 g/dL (12.0-15.0); Lymphocyte # 1.58 X10^3/ul (0.83-4.51); Lymphocyte % 16.4 % (19-41); Mean Corpuscular Hgb 24.8 pg (27.0-32.0); Mean Corpuscular Volume 80.1 fL (81-99); Mean Platelet Vol. 10.8 fl (6.2-12.0); Monocyte# 0.74 X10^3/uL; Monocyte% 7.7 % (0-10); NRBC Flagged by Analyzer 0 % (0-5); Neutrophil # 7.17 X10^3/uL (2.7-7.7); Neutrophil % 74.5 % (47-70); POSITIVE MORPHOLOGY YES; Platelet Count 230 K/mm3 (150-450); RBC Distribution Width CV 20.1 % (11.6-14.6); RBC Distribution Width SD 57.1 fl (35.1-43.9); Red Blood Count 4.72 M/mm3 (4.2-5.4); White Blood Count 9.6 K/mm3 (4.4-11.0)
[2023-09-26 20:53] LABS: Differential Indicated SCAN CRITERIA MET
[2023-09-26] MEDS: Lactated Ringers 1,000 ML 50 ML IV (21:00)
[2023-09-26 21:18] LABS: Anisocytosis RARE; Microcytosis RARE; Platelet Estimate ADEQUATE (ADEQ); Red Cell Morphology N CHROM NORMAL (NORM C&C)
[2023-09-26] MEDS: fentaNYL-bupivacaine (epidural) 100 ML BAG EPIDURAL (21:20)
[2023-09-26 21:30] LABS: Syphilis Antibodies Non-reactive
[2023-09-26] MEDS: Ondansetron 4 MG/2 ML Vial IV (21:35)
--- NOTE | 2023-09-26 21:44 | PCM.HP.OB ---
HPI - General General Date of Admission: 09/26/23 HPI Narrative ISABELLA MACKAY, is a 23 F @ 39.6 weeks who presents c/o ctx found to be 7cm at time of admission. PFSH PFSH Medical History Anemia Anxiety Smoker Home Medications NK 05/21/21 [History Last Taken Unknown] Allergy/AdvReac Type Severity Reaction Status Date / Time cephalexin [From Keflex] Allergy Rash Verified 09/26/23 21:34 Social History Smoking Status: Former smoker History Elective abortions Hx Para 2 Spontaneous abortions Hx # Term Pregnancies Ectopic pregnancies Hx # Pregnancies Multiple births # of living children Vital Signs Vital Signs Vital Signs: 09/26/23 20:44 09/26/23 20:45 09/26/23 20:45 Temperature Temperature Source Temporal Pulse Rate 86 Blood Pressure 114/68 BP Systolic 114 BP Diastolic 68 Pulse Ox 09/26/23 20:44 09/26/23 21:00 09/26/23 21:00 Temperature 98.0 F Temperature Source Pulse Rate 104 H Blood Pressure 107/64 BP Systolic 107 BP Diastolic 64 Pulse Ox 09/26/23 21:00 09/26/23 21:04 09/26/23 21:04 Temperature Temperature Source Pulse Rate 100 Blood Pressure 110/65 BP Systolic 110 BP Diastolic 65 Pulse Ox 98 09/26/23 21:05 09/26/23 21:05 09/26/23 21:09 Temperature Temperature Source Pulse Rate 98 Blood Pressure 106/66 BP Systolic 106 BP Diastolic 66 Pulse Ox 99 09/26/23 21:09 09/26/23 21:10 09/26/23 21:10 Temperature Temperature Source Pulse Rate 102 H 102 H Blood Pressure BP Systolic BP Diastolic Pulse Ox 99 09/26/23 21:14 09/26/23 21:14 09/26/23 21:19 Temperature Temperature Source Pulse Rate 83 Blood Pressure 110/66 99/59 L BP Systolic 110 99 BP Diastolic 66 59 Pulse Ox 09/26/23 21:19 09/26/23 21:19 09/26/23 21:24 Temperature Temperature Source Pulse Rate 90 82 Blood Pressure BP Systolic BP Diastolic Pulse Ox 97 09/26/23 21:24 09/26/23 21:29 09/26/23 21:29 Temperature Temperature Source Pulse Rate 100 Blood Pressure 117/65 BP Systolic 117 BP Diastolic 65 Pulse Ox 99 09/26/23 21:32 09/26/23 21:32 09/26/23 21:32 Temperature Temperature Source Pulse Rate 85 Blood Pressure 105/65 BP Systolic 105 BP Diastolic 65 Pulse Ox 99 09/26/23 21:34 09/26/23 21:34 09/26/23 21:37 Temperature Temperature Source Pulse Rate 85 83 Blood Pressure 106/64 BP Systolic 106 BP Diastolic 64 Pulse Ox 09/26/23 21:37 09/26/23 21:39 09/26/23 21:39 Temperature Temperature Source Pulse Rate 99 Blood Pressure BP Systolic BP Diastolic Pulse Ox 100 93 Weight Weight: 62.596 kg Body Mass Index (BMI) 26.9 Physical Exam Const alert and oriented x3 General Appearance: cooperative HEENT normocephalic GI GI Narrative: Gravid, non tender to palpation. OB / External & Speculum: external exam normal Extremity normal to inspection Skin no rashes or lesions noted Neuro oriented x3 and CN's II-XII intact bilaterally Psych Appearance: grossly normal Labs Labs Labs: Blood Type O POSITIVE Antibody Screen NEGATIVE Hct 37.8 % (37-47) Hgb 11.7 g/dL (12.0-15.0) L Syphilis Total Ab Non-reactive Rhogam given: No Assessment & Plan (1) Active labor at term: (2) Multiparous: (3) 39 weeks gestation of : (4) Anemia affecting : PLAN: Plan @ 39.6 weeks in active labor Admit to L&D [facility] FHR/TOCO Epidural Monitor VS Anticipate
--- NOTE | 2023-09-26 22:55 | PCM.PN.BLA ---
Progress Note pt progressed to 10cm- comfortable with epidural. Is pushing- baby OP position. Now pushing IN hands and knees position. anticipate , there is some descent of head now at +2 station with pushing.
[2023-09-26] MEDS: Oxytocin 15 Units/NS 250ml 15 UNITS/250 ML IV.SOLN 83 UNITS IV (23:16)
--- NOTE | 2023-09-26 23:23 | EX.PCM.OBRPT ---
Vaginal Delivery Operative Information Date of Procedure: 09/26/23 Pre-Operative Diagnosis: 39 weeks, active labor Post-Operative Diagnosis: Same, Live female infant Surgery / Procedure Performed: Vacuum Assisted Vaginal Delivery Type of Anesthesia: Epidural Estimated Blood Loss: 50 Time of Delivery: 23:14 Findings Description of Procedure: patient was complete and pushing -fetus in the OP position. Maternal exhaustion. Discussed with the patient option for attempt at vacuum extraction, discussed the risks of vacuum delivery with the patient. Patient verbalized understanding and consented. At this time extra help was called to the room. Epidural anesthesia was adequate. head with pushing was at the +3 station. Attempt at drainage of the bladder however head was blocking the passage of the catheter. At this time the kiwi vacuum was placed on the flexion point suction was placed at 550 mmHg with good maternal pushing efforts and 1 pull of the vacuum the 's head was delivered. The vacuum was then released and anterior shoulder did not want to deliver with gentle downward traction. At this time legs were placed in Irena and suprapubic pressure was applied- after approximately 15seconds. Shoulder dystocia was then released (approx 30seconds after delivery of head) and the anterior shoulder was delivered followed by the rest the 's body. Terminal meconium was noted. was placed on the mother's chest cord was immediately clamped and cut and the infant was evaluated by the nursery team. The infant was vigorous at time of delivery. Apgars were 8 and 9. The placenta was then delivered after cord blood was obtained. No vaginal or perineal lacerations were appreciated. Presentation: Vertex Amniotic Membrane Rupture Type: Artificial Amniotic Fluid Description: Clear and - (terminal meconium at delivery ) Placental Delivery Description: Spontaneous Placenta Disposition: [facility] Specimen(s) Removed: placenta Cord Vessel Description: 3 Vessels Cord Entanglement: None A Gender: Female (1 minute): 8 (5 minute): 9 Delayed Cord Clamping: No Post Vaginal Delivery Medications Given After Delivery: IV Pitocin and IM Pitocin Episiotomy Description: None Laceration: None Complication Complications: -
[2023-09-27] VITALS (10 sets, daily range): BP systolic 89–102; BP diastolic 42–63; PULSE 59–75; RESP 14–17; TEMP 36.1–36.8; O2SAT 98–99
[2023-09-27] MEDS: Ibuprofen 600 MG Tablet PO ×2 (00:43→07:27)
[2023-09-27] MEDS: Acetaminophen 500 MG Tablet 1000 MG PO ×3 (01:27→21:42)
--- NOTE | 2023-09-27 08:52 | PN.OBGYN_ITS ---
Subjective Subjective Patient seen at bedside. Feeling good. Denies any pain. Ambulating and voiding without difficulty. Formula feeding. Lochia decreasing. Objective Data Objective Data Vital Signs: Vital Signs Temp Pulse Resp BP Pulse Ox O2 Del Method 97.9 F 66 16 90/50 L 99 Room Air 09/27/23 07:30 09/27/23 07:30 09/27/23 07:30 09/27/23 07:30 09/27/23 07:30 09/27/23 07:30 Oxygen Delivery Method Room Air Weight: 138 lb Body Mass Index (BMI) 26.9 Intake & Output: Intake and Output for Last 24 Hours 09/25/23 09/26/23 09/27/23 23:59 23:59 23:59 Intake Total 637.5 / 637.5 250 / 250 Output Total 150 / 150 450 / 450 Balance 487.5 / 487.5 -200 / -200 Lab / Micro Data 09/26/23 20:35 Labs: Laboratory Results - last 24 hr 09/26/23 20:35: WBC 9.6, RBC 4.72, Hgb 11.7 L, Hct 37.8, MCV 80.1 L, MCH 24.8 L, MCHC 31.0 L, RDW Std Deviation 57.1 H, RDW Coeff of Benjamin 20.1 H, Plt Count 230, MPV 10.8, Immature Gran % (Auto) 0.300, Neut % (Auto) 74.5 H, Lymph % (Auto) 16.4 L, [place] % (Auto) 7.7, Eos % (Auto) 0.6, Baso % (Auto) 0.5, Absolute Neuts (auto) 7.2, Absolute Lymphs (auto) 1.58, Nucleated RBC % 0, Platelet Estimate ADEQUATE, RBC Morphology N CHROM, Anisocytosis RARE, Microcytosis RARE, Syphilis Total Ab Non-reactive, Blood Type O POSITIVE, Antibody Screen NEGATIVE ROS Eyes Eyes: Denies blurry vision, change in vision or spots in vision ENT HEENT: Denies dizziness or headache(s) Cardiovascular Cardiovascular: Denies abdominal pain, chest pain or dyspnea Respiratory/Chest Respiratory/Chest: Denies cough, dyspnea, shortness of breath at rest or shor tness of breath with exertion Gastrointestinal Gastrointestinal: Denies abdominal pain, diarrhea or vomiting Genitourinary Genitourinary: Denies change in urinary stream, difficulty urinating or dysuria Musculoskeletal Musculoskeletal: Reports none Integumentary Integumentary: Denies rash Neurologic Neurologic: Denies dizziness, headache(s), memory loss or weakness Assessment & Plan (1) Vacuum-assisted vaginal delivery: (2) Anemia affecting : (3) Multiparous: PLAN: Plan PPD 1 VAVD Routine care Pain control Anticipate discharge home tomorrow
[2023-09-27] MEDS: Benzocaine/Lanolin/Aloe Vera 1 SPRAY EACH TOPICAL (21:43)
[2023-09-28 02:00] VITALS: BP 97/49; PULSE 59; RESP 17; TEMP 36.2; O2SAT 98
--- NOTE | 2023-09-28 07:24 | PCM.DC.SUM ---
Providers Date of Admission: 09/26/23 Primary Care Physician: Dr. Arron Brandt MD Reason For Visit: VAGINAL Diagnosis Discharge Diagnosis (1) Vacuum-assisted vaginal delivery: Status: Acute Code(s): Z37.9 - Outcome of delivery, unspecified (2) Anemia affecting : Status: Acute Code(s): O99.019 - Anemia complicating , unspecified trimester (3) Multiparous: Status: Acute Code(s): Z64.1 - Problems related to multiparity Plan PPD2 VAVD Routine care D/C home with follow up in office Medications at Discharge Home Medications NK 05/21/21 Hospital Course Operations None Procedures None Summary of Care Provided Minutes Spent on Discharge: 15 Hospital Course: Patient had vacuum assisted vaginal delivery. Hospital course was uneventful. Physical Exam Const alert and no apparent distress General Appearance: cooperative and comfortable Exam Limitations: no limitations HEENT normocephalic Eyes General Eye: normal appearance of both eyes Neck full ROM General: normal visual inspection Chest Chest: symmetrical chest wall rise Resp normal respiratory effort and normal air movement Effort and Inspection: symmetric chest movement Auscultation: clear to auscultation bilaterally Cardio regular rate and regular rhythm GI normal to inspection, nondistended, normoactive bowel sounds Back/Spine normal ROM Extremity full ROM and no calf tenderness General Extremity: normal exam except as noted Skin no rashes or lesions noted Neuro CN's II-XII intact bilaterally Psych mental status grossly normal Weight / BMI Weight Weight: 138 lb Body Mass Index (BMI) 26.9 ABG / Lab / Microbiology Data 09/26/23 20:35 D/C Instructions Discharge Diet: No restrictions May resume sexual activity in: 6-8 weeks Weight Bearing Status: Weight bearing as tolerated Call your doctor if you observe: Fever of 101 or Higher, Inability to urinate, Using more than 1 pad per hour, Shortness of breath, Chest pain, Calf discomfort and Uncontrolled pain When: 2 weeks virtual visit/ 6 weeks in office Meaningful Use Info Meaningful Use Diagnoses (Choose all that apply): None applicable Discharge Plan Admission Admit Date/Time: 09/26/23 20:35 Primary Reason for Your Visit: Labor and Delivery Attending Provider: Anna Fortune Primary Care Provider: Arron Brandt Discharge Orders/Prescriptions Prescriptions: No Action NK Referrals / Follow Up: Arron Brandt MD [Primary Care Provider] - Disposition Disposition (needs filled in before D/C Order can be placed): Home, Self Care
[2023-09-28 08:35] VITALS: BP 99/60; PULSE 69; RESP 16; TEMP 37; O2SAT 98
[2023-09-28] MEDS: Influenza Virus Vac Quad 23-24 60 MCG/0.5 ML SYRINGE IM (10:42)
== END 2023-09-28 10:50 | disposition home or self-care (01) | DRG 807 ==
LOC: WPOUT 20:36 → WP 20:36
PROVIDERS: Admitting Provider Obstetrics & Gynecology; PCP Family Medicine; Visit Provider Obstetrics & Gynecology
DX: O66.0 Obstructed labor due to shoulder dystocia (principal); Z37.0 Single live birth; O75.81 Maternal exhaustion complicating labor and delivery; O77.0 Labor and delivery complicated by meconium in amniotic fluid; Z3A.39 39 weeks gestation of pregnancy; Z23 Encounter for immunization; Z87.891 Personal history of nicotine dependence
CPT/HCPCS: 59025; 59050; 85025; 86780; 86850; 86900; 86901; 99221; J7120; 90686; G0378; J2405

== ENCOUNTER 2025-07-01 11:00 | Outpatient (RCR) | payer MEDICAID, SELFPAY ==
--- NOTE | 2025-04-29 17:29 | HP.PTEVAL_ITS ---
Patient's Visit Information Visit Information Visit Information: MILADIS MACKAY is a 25 year old F referred to Physical Therapy by BRIEN Campbell with a diagnosis of Chronic pelvic pain R10.2, deep dyspareunia N94.12. Date of Evaluation: 04/29/25 Physical Therapist: Jacy Weston Visit Plan Frequency: 1x/Week Duration: 3 Months Plan: Miladis would benefit from skilled PT intervention to address her pelvic pain, low back pain, dyspareunia and mild incontinence. On evaluation today, found some mild, moderate pelvic floor tightness and a mild rectocele , cystocele. Her lumbar and pelvic malalignments may be contributing by causing SI and facet joint irritation and muscle guarding. We will also address her lumbar dysfunction in our sessions as well. Give her [employer] brochure. Continue pelvic floor releases (mild, moderate bilaterally layer 2 bilaterally). Will need work on T/L junction and lumbar, piriformis (moderate tenderness). Add week 2 next visit for pelvic floor str engthening. Has she tried splinting? Subjective Subjective: She is having intermittent pain with intercourse. Menstrual pain is what is really bothering her. She just had her 3rd daughter 2022 and after that her periods really started to get bad. First deliveries were 2017, 2019. She pushed 2 1/2 hours with first delivery. No significant tearing. Almost every month, it can start 2-7 days before her period. Cramping and back pain. When her period hits, she can get serious debilitating pain that radiates into her legs. Pain can average 7/10. 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 She does heavy lifting and spends long hours on her feet. She gets bad cramping around her ovulation (right side). Bilateral low back pain. When she is not on her period, she generally doesn't feel much pain. She has deep pain with intercourse. She has felt uncomfortable using tampons since having her kids. [place] pain has been going on since right before her first baby. Pain averages 7-8/10. She has a lot of constipation issues (chronic but she thinks related to her antidepressant med). She leaks with a cough or sneeze. Her goal is to manage the period pain and the intercourse pain. Pain Low back/Pelvis: Pain Intensity (Out of 10): 0 Pain Intensity Range: 7 Lower Extremities: Pain Intensity (Out of 10): 0 Pain Intensity Range: 8 Objective Objective: POPDI-6, 8, CRAD-8 9, ALICE-6 13 Right upslip Lumbar range of motion: Flexion no pain Extension no pain Sidebending right - stretching pain Rotation no change Good LE strength , right great toe extension 4-/5 + slump test bilaterally but worse on left side Right upslip, left rotation L1-L5 (tender and reproduced cramping in the front) She gives consent for pelvic floor evaluation Mild, moderate pelvic floor tightness bilaterally layer 2 LAYCOCK 3/6//4 Cystocele 1, Rectocele 1+ Can feel cervix at tip of finger Goals Goal 1:: Miladis's Low back pain will be 2/10 around her period and no LE symptoms. Goal Time Frame: 6-8 Weeks Goal 2:: Monys low back pain/LE pain will be absent when she is doing bending and lifting activities at work. Goal Time Frame: 8-12 Weeks Goal 3:: Miladis will have no pain with a gynecological exam using a medium sized speculum. Goal Time Frame: 6-8 Weeks Goal 4:: Miladis will be able to cough or sneeze without leaking. Goal Time Frame: 8-12 Weeks Rehabilitation Potential Physical Therapy Diagnosis: Low back pain , unspecified , stress incontinence Rehabilitation Potential: Good Anticipated Interventions Patient/Client Instruction: Educate patient on: Condition and Plan of Care For the Purpose of:: To decrease pain, To improve muscle performance and motor function, To improve health and function and To improve self management Therapeutic Exercise to Include: Strength training, Neuromotor development, R elaxation training, Dynamic Lumbar Stabilization and Jeanne Exercises For the Purpose of:: To decrease pain, To increase tolerance to activity/condition/position, To improve health and function and To improve self management Manual Therapy Techniques to Include: Trigger point massage, Mobilization and Soft tissue mobilization For the Purpose of:: To decrease pain, To improve muscle performance and motor function, To increase tolerance to activity/condition/position, To improve health and function and To improve self management Ultrasound (thermal/non thermal): Yes Pelvic traction prone: Yes For the Purpose of:: To decrease pain, To improve muscle performance and motor function, To improve health and function and To improve self management Text: Thank you for the opportunity to evaluate your patient. For Medicare and Medicare HMO plans, please review the plan of care and approve it. It will need to be FAXED BACK to us at [phone] for Medicare purposes. For Medicare only, by signing this I certify the plan of care. Please let me know if there are questions or concerns regarding this plan of care. Physician Signature: _Date:
--- NOTE | 2025-08-31 11:47 | HP.PTDCNRP_ITS ---
Patient Information Patient Information: ISABELLA MACKAY was seen in my office for initial evaluation on 04/29/25. The following Plan of Care was established for this patient: POC Established Initial Frequency: 1x/Week Initial Duration: 3 Months Anticipated Interventions Patient/Client Instruction: Educate patient on: Condition and Plan of Care For the Purpose of:: To decrease pain, To improve muscle performance and motor function, To improve health and function and To improve self management Therapeutic Exercise to Include: Strength training, Neuromotor development, Relaxation training, Dynamic Lumbar Stabilization and Jeanne Exercises For the Purpose of:: To decrease pain, To increase tolerance to activity/con dition/position, To improve health and function and To improve self management Manual Therapy Techniques to Include: Trigger point massage, Mobilization and Soft tissue mobilization For the Purpose of:: To decrease pain, To improve muscle performance and motor function, To increase tolerance to activity/condition/position, To improve health and function and To improve self management Ultrasound (thermal/non thermal): Yes Pelvic traction prone: Yes For the Purpose of:: To decrease pain, To improve muscle performance and motor function, To improve health and function and To improve self management Last Seen Last Seen: This patient was last seen in our office 07/01/25. Pertinent comments regarding their Physical therapy will appear below: Spoke with patient by phone in a follow up call. She states she is still doing well for the most part. At this time , discharging her from PT and closing her chart. At this point I will be discontinuing this patient from physical therapy. I would be happy to see this patient again in the future if found appropriate by the physician. Thank you! Jacy Weston
== END 2025-07-01 19:00 | disposition home or self-care (01) ==
LOC: PT 11:00
PROVIDERS: PCP Family Medicine; Visit Provider Nurse Practitioner Women's Health
DX: R10.2 Pelvic and perineal pain (principal); G89.29 Other chronic pain; N80.03 Adenomyosis of the uterus; N94.12 Deep dyspareunia; N94.89 Other specified conditions associated with female genital organs and menstrual cycle
CPT/HCPCS: 97012; 97110; 97112; 97140; 97162; 97530